=== PATIENT | female | born 1950 | race Caucasian/White ===

== ENCOUNTER 2020-04-14 14:02 | Outpatient (AMBR) | payer OTHER, MEDICAID, SELFPAY ==
--- NOTE | 2020-04-14 14:11 | PT.OIERPT ---
PT OP Initial Eval Patient Information Visit Reasons: BACK PAIN Medical Diagnosis: M54.5 Treatment Dx #1: LBP Start of Care: 04/14/20 Date of Onset: 6 months ago Initial Assessment Subjective Pt is 69 yr old female who c/o worsening LBP with prolonged standing and inability to walk without a walker farther than 1/2 a block. Her back feels like it gives out and she falls sometimes. She fell carrying some towels recently because the back couldn't hold her up. PMH: lumbar laminectomy and fusion 2011 of L4-L5, DM, thyroidism, HTN, breast ca, lupus Imaging: Xrays of L/S in EMR, reviewed Pt goal: less LBP, be more mobile, doesn't want to end up in W/C, strengthen core Objective Trunk ArOM: B SB 18 with pain L>R Extension: to neutral Flexion: 4 from floor with LBP B rotation: 60% R SLR ROM: 90 deg. L SLR: 90 deg with posterior knee neural tension with LBP LE strength: B hamstrings: 4-/5 Quads 4-/5 Hip abd/add 4-/5 TTP: moderate L paraspinals L4-5 lumbar paraspinal atrophy abdominal brace with LE movement 3+/5 Assessment Pt presents with limited trunk extension due to pain and overlying myofascial pain and spasming around L4-5 on L side. She has lumbar extensor atrophy and pain with prolonged standing. Pt has fair pelvic kinematics and difficulty finding neutral spine. These findings are consistent with Xrays that reveal thoracolumbar scoliosis and degenerative changes. PT requires skilled therapy in order to decrease pain and improve LE strength and core activation. Short Term and Penitentiary Goals 1. Ind with HEP 2. Improved abdominal brace with LE movement to at least 4/5 3. Improved LE strength to at least 4/5 quads/HS Treatment Plan 1. Manual therapy 2. Therex 3. Modalities as indicated, moist heat, ice, estim Frequency and Duration 2x a week for 6 weeks Certification Dates: 04/14/20 to 07/14/20 Office Procedures PT Procedures PT Date of Service: 04/14/20 OP PT Eval Mod Complex 30 minutes: Yes
--- NOTE | 2020-04-20 14:18 | PT.ODAYNRPT ---
PT Outpatient Daily Note Date of Service: 04/20/20 OP Daily Note Visit Reasons: BACK PAIN Outpatient Physical Therapy Treatment Date: 04/20/20 Subjective: Same as time of evaluation Objective: See F/S for therex MT: STM L/S paraspinals L1-5 x7' MHP x7' during supine therex Assessment: Good response to manual therapy to reduce myofascial TTP. Pt needs work to improve abdominal activation with LE movements. Plan: Continue per POC Length of Time (minutes) of Treatment: 30 Minutes Office Procedures PT Procedures PT Date of Service: 04/14/20 OP PT Eval Mod Complex 30 minutes: Yes PT Procedures PT Date of Service: 04/20/20 Therapeutic Exercise 30 minutes: Yes
--- NOTE | 2020-04-27 14:24 | PTNOTE_ITS ---
PT Outpatient Daily Note Date of Service: 04/27/20 OP Daily Note Visit Reasons: BACK PAIN Outpatient Physical Therapy Treatment Date: 04/27/20 Subjective: Increased LBp since last visit Objective: See F/S for therex MHP x7' during supine therex Assessment: Moderate TTP with supine therex today. No significant pain with p rhoda positioning which is part of HEP. Pt needs work to improve abdominal activation with LE movements. Plan: Continue per POC Length of Time (minutes) of Treatment: 30 Minutes Office Procedures PT Procedures PT Date of Service: 04/14/20 OP PT Eval Mod Complex 30 minutes: Yes PT Procedures PT Date of Service: 04/27/20 Therapeutic Exercise 30 minutes: Yes PT Procedures PT Date of Service: 04/20/20 Therapeutic Exercise 30 minutes: Yes
--- NOTE | 2020-05-03 17:59 | PT.ODS1RPT ---
PT OP Progress/Discharge Note Date of Service: 05/03/20 Progress Note/DC Note Progress Note/Discharge Note: DC Note Patient Information Visit Reasons: BACK PAIN Service Continue Service or Discharge: Discharge Discharge Date: 05/03/20 Status Subjective: After last visit she couldn't walk for two days due to increased LBP. No relief since starting therapy. Objective: Trunk ArOM: Flexion: 4 from floor with LBP Extension: unable due to pain B rotation: 60% LE strength: B quads and HS: 4-/5 Assessment: Pt has attended the eval and 3 Rx sessions with poor response and progress with therapy goals. Pt has had more pain since starting therapy and has not met her goals. Ssx consistent with lumbar DDD and scoliosis. She does have HEP of supine lumbar stabilization therex. Plan: Pt is discharged to provider for further workup Office Procedures PT Procedures PT Date of Service: 04/14/20 OP PT Eval Mod Complex 30 minutes: Yes PT Procedures PT Date of Service: 04/27/20 Therapeutic Exercise 30 minutes: Yes PT Procedures PT Date of Service: 04/20/20 Therapeutic Exercise 30 minutes: Yes PT Procedures PT Date of Service: 05/03/20 Therapeutic Exercise 30 minutes: Yes
== END 2020-05-10 23:59 | disposition home or self-care (01) ==
PROVIDERS: PCP Nurse Practitioner; Referring Provider Nurse Practitioner; Visit Provider Nurse Practitioner
DX: M54.5 Low back pain (principal); E11.9 Type 2 diabetes mellitus without complications; I10 Essential (primary) hypertension
CPT/HCPCS: 97110; 97162

== ENCOUNTER → 2024-12-01 | Outpatient (CLI) | payer MEDICARE, MEDICAID, SELFPAY ==
--- NOTE | 2024-12-01 13:45 | XR_ITS ---
Examination: Screening digital mammography, bilateral Computer aided detection 3-D breast Tomosynthesis, bilateral Date and time of exam: December 01, 2024 at 1344 hours Compared to mammograms dating to April 06, 2018 Indication: Screening Technique: Nonmagnified MLO, CC views of the breasts to been obtained, reconstructed from 3-D Tomosynthesis images. R2 computer aided detection program utilized for evaluation of suspicious masses and/or abnormal calcifications. 3-D Tomosynthesis images obtained. Findings: Scattered areas of fibroglandular density. Stable scar formation 12:00 position right breast consistent with treated right breast cancer Stable circumscribed nodule outer left breast with breast biopsy markers No interval suspicious mass Impression: BI-RADS category II: Benign Findings. Recommend 1 year follow-up mammogram.
[2024-12-01 14:30] LABS: Basophils # (Auto) 0.1 Thou/mm3 (0.0-0.2); Basophils % (Auto) 0 % (0-2.5); Eosinophils # (Auto) 0.3 Thou/mm3 (0.0-0.5); Eosinophils % (Auto) 3 % (0-10); Hematocrit 37.3 % (36.0-46.0); Hemoglobin 11.7 g/dL (12.0-16.0); Immature Granulocytes % (Auto) 0 % (0-0); Immature Granulocytes Auto 0.05 Thou/mm3 (0.00-0.00); Lymphocytes # (Auto) 2.8 Thou/mm3 (1.0-4.8); Lymphocytes % (Auto) 24 % (10-50); Mean Corpuscular HGB Conc 31.4 g/dl (31.0-37.0); Mean Corpuscular Hemoglobin 25.4 pg (25.0-35.0); Mean Corpuscular Volume 81 fL (80-100); Monocytes # (Auto) 0.7 Thou/mm3 (0.0-0.8); Monocytes % (Auto) 7 % (0-12); Neutrophils # (Auto) 7.4 Thou/mm3 (1.8-7.7); Neutrophils % (Auto) 66 % (37-80); Nucleated Red Blood Cell % 0 /100 WBC (0); Platelet Count 498 Thou/mm3 (140-440); RDW Standard Deviation 64.1 fL (36.4-46.3); Red Blood Count 4.61 Miln/mm3 (4.00-5.20); White Blood Count 11.4 Thou/mm3 (3.6-11.0)
[2024-12-01 14:50] LABS: Collection Type, Urine Clean Catch
[2024-12-01 14:54] LABS: Alanine Aminotransferase 9 U/L (10-49); Albumin, Serum 4.9 gm/dL (3.4-4.8); Albumin/Globulin Ratio 1.8 (1.2-2.2); Alkaline Phosphatase 64 U/L (46-116); Anion Gap 10 (7-16); Aspartate Amino Transferase 12 U/L (0-34); BUN/Creatinine Ratio 12 Ratio (12-20); Bilirubin,Total 0.2 mg/dL (0.3-1.2); Blood Urea Nitrogen 13 mg/dL (9-23); Calcium 9.5 mg/dL (8.3-10.6); Calcium (Corrected) 9.5 mg/dL (8.5-10.1); Cardiac Risk Estimate 2.5 RATIO (3.7-5.6); Chloride 98 mMol/L (98-107); Cholesterol 181 mg/dL (132-200); Creatinine (Component) 1.1 mg/dL (0.6-1.3); Globulin 2.7 gm/dL (2.3-3.5); Glucose 80 mg/dL (74-106); HDL Cholesterol 73 mg/dL (40-60); LDL Cholesterol,Calculated 82 mg/dL (0-130); Osmolality,Calculated 272 (275-295); Potassium 4.2 mMol/L (3.4-5.1); Sodium 137 mMol/L (136-145); Thyroid Stimulating Hormone 2.86 uIU/mL (0.55-4.78); Total Protein 7.6 gm/dL (5.7-8.2); Triglycerides 128 mg/dL (30-150); eGFR 54 See Note
[2024-12-01 14:55] LABS: C-Reactive Protein < 0.5 mg/dL (0.0-0.9)
[2024-12-01 15:07] LABS: Bacteria,Urine Rare; Bilirubin,Urine Negative (Negative); Blood,Urine Negative (Negative); Clarity,Urine Turbid (Clear/Hazy); Color,Urine Lt-Yellow (Lt Yel-Yel); Culture Indicated,Urine Contaminated; Glucose, Urine 4+ (Negative); Hyaline Casts,Urine < 1 /hpf (0-1); Ketones,Urine Negative (Negative); Leukocyte Esterase,Urine Positive (Negative); Nitrite,Urine Negative (Negative); PH,Urine 5.5 (5.0-7.0); Protein,Urine Negative (Neg - Trace); RBC,Urine 8 /hpf (0-3); Specific Gravity,Urine 1.012 (1.001-1.035); Squamous Epithelial Cell,Urine 14 /hpf (0-5); Urobilinogen,Urine Negative mg/dL (0.0-1.0); WBC,Urine 32 /hpf (0-5)
[2024-12-01 15:14] LABS: Syphilis Nonreactive (Nonreactive)
[2024-12-01 15:35] LABS: Hepatitis A Antibody IgM Non Reactive (Non React); Hepatitis B Core Antibody IgM Non Reactive (Non React); Hepatitis B Surface Antigen Non Reactive (Non React); Hepatitis C Antibody Non Reactive (Non React)
[2024-12-01 15:55] LABS: Sed Rate (ESR) 49 mm/hr (0-30)
[2024-12-07 06:22] LABS: Complement Component C3* 172 mg/dL (83-193); Complement Component C4c* 40 mg/dL (15-57); DNA (ds) Antibody* <1 IU/mL; HIV Ag/Ab, 4th Gen NON-REACTIVE
== END | disposition home or self-care (01) ==
LOC: CDIM 13:52 → COPL 13:56
PROVIDERS: PCP Internal Medicine; Referring Provider Internal Medicine Rheumatology; Visit Provider Radiology Diagnostic Radiology
DX: Z12.31 Encounter for screening mammogram for malignant neoplasm of breast (principal); R92.8 Other abnormal and inconclusive findings on diagnostic imaging of breast; R92.323 Mammographic fibroglandular density, bilateral breasts; C50.419 Malignant neoplasm of upper-outer quadrant of unspecified female breast; M32.9 Systemic lupus erythematosus, unspecified; E11.22 Type 2 diabetes mellitus with diabetic chronic kidney disease; N18.32 Chronic kidney disease, stage 3b; D63.1 Anemia in chronic kidney disease; E03.9 Hypothyroidism, unspecified; E11.65 Type 2 diabetes mellitus with hyperglycemia; E78.5 Hyperlipidemia, unspecified; Z11.3 Encounter for screening for infections with a predominantly sexual mode of transmission; Z11.59 Encounter for screening for other viral diseases
CPT/HCPCS: 36415; 77063; 77067; 80053; 80061; 80074; 81001; 84443; 85025; 85652; 86140; 86160; 86225; 86780; 87389

== ENCOUNTER → 2025-01-10 | Outpatient (CLI) | payer MEDICARE, SELFPAY ==
--- NOTE | 2025-01-10 13:35 | XR_ITS ---
Examination: Bone densitometry Date and time of exam:January 10, 2025 1411 hours INDICATIONS: Menopause age 51 postmenopausal lumbar spine fracture, family history, mother osteoporosis, personal history breast carcinoma, personal history osteopenia Technique: Lumbar spine and hip total bone mineralization values of an calculated. Peak reference and age match control results have been displayed. Findings: Lumbar spine total bone mineralization is1.006 gm/cm2. This is 0.4 standard deviations below peak reference. This is 1.9 standard deviations above age-matched controls. Hip total bone mineralization is 0.734 gm/cm2 This is 1.7 standard deviations below peak reference. This is 0.1 standard deviations below age-matched controls Impression: There is normal mineralization based on lumbar spine measurements. There is osteopenia based on hip measurements Lumbar mineralization is decreased 5.6% compared with April 30, 2022 Hip mineralization is increase 0.3% compared with April 30, 2022
== END | disposition home or self-care (01) ==
PROVIDERS: Referring Provider Internal Medicine; Visit Provider Internal Medicine
DX: M85.89 Other specified disorders of bone density and structure, multiple sites (principal)
CPT/HCPCS: 77080

== ENCOUNTER 2025-03-08 21:55 | Emergency (ER) | payer MEDICARE, MEDICAID, SELFPAY ==
[2025-03-08 22:06] VITALS: PULSE 84; O2SAT 100
[2025-03-08 22:43] VITALS: BP 113/73; PULSE 79; RESP 19; TEMP 36.4; O2SAT 94
--- NOTE | 2025-03-09 00:28 | XR_ITS ---
Examination: PA chest single view FINDINGS: Upright PA chest single view Date and time: March 09, 2025, 0040 hours INDICATIONS: Shortness of breath chest heaviness beginning yesterday. FINDINGS: Normal heart size Mild accentuation basilar bronchovascular markings. No lobar pneumonia or pulmonary edema IMPRESSION: Severe bronchitis pattern
--- NOTE | 2025-03-09 00:29 | EKG_ITS ---
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
--- NOTE | 2025-03-09 00:32 | PD.EDRME ---
Rapid Medical Screening Exam RME Arrival date/time: 03/08/25 21:55 Chief Complaint: Shortness of Breath/Dyspnea Time Seen by Provider: 03/09/25 00:17 Vital signs: Vital Signs Temperature 97.5 F 03/08/25 22:43 Pulse Rate 79 03/08/25 22:43 Respiratory Rate 19 03/08/25 22:43 Blood Pressure 113/73 03/08/25 22:43 Pulse Oximetry (%) 94 L 03/08/25 22:43 Oxygen Delivery Method Room Air 03/08/25 22:43 Vital signs reviewed by provider: Yes RME Narrative: 74-year-old female with a past medical history of atrial fibrillation on Eliquis, insulin-dependent diabetes, and SLE presents to the ED with a complaint of shortness of breath and chest heaviness that began earlier today. Patient states she ran out of her metoprolol a couple of days ago and was unable to pick it up from the pharmacy until today. I have greeted and performed a focused initial assessment of this patient. A comprehensive ED assessment and evaluation of the patient, analysis of all test results, and completion of the medical decision making process will be conducted by additional ED providers.
[2025-03-09 01:11] LABS: Collection Type, Urine Clean Catch
[2025-03-09 01:13] LABS: Basophils # (Auto) 0.0 Thou/mm3 (0.0-0.2); Basophils % (Auto) 0 % (0-2.5); Eosinophils # (Auto) 0.3 Thou/mm3 (0.0-0.5); Eosinophils % (Auto) 2 % (0-10); Hematocrit 37.6 % (36.0-46.0); Hemoglobin 11.6 g/dL (12.0-16.0); Immature Granulocytes Auto 0.04 Thou/mm3 (0.00-0.00); Lymphocytes # (Auto) 1.7 Thou/mm3 (1.0-4.8); Lymphocytes % (Auto) 15 % (10-50); Mean Corpuscular HGB Conc 30.9 g/dl (31.0-37.0); Mean Corpuscular Hemoglobin 25.8 pg (25.0-35.0); Mean Corpuscular Volume 84 fL (80-100); Monocytes # (Auto) 0.7 Thou/mm3 (0.0-0.8); Monocytes % (Auto) 5 % (0-12); Neutrophils # (Auto) 9.3 Thou/mm3 (1.8-7.7); Neutrophils % (Auto) 77 % (37-80); Nucleated Red Blood Cell # 0.00 Thou/mm3 (0.00-0.00); Nucleated Red Blood Cell % 0 /100 WBC (0); Platelet Count 477 Thou/mm3 (140-440); RDW Standard Deviation 53.3 fL (36.4-46.3); Red Blood Count 4.50 Miln/mm3 (4.00-5.20); White Blood Count 12.0 Thou/mm3 (3.6-11.0)
[2025-03-09 01:16] LABS: Amorphous Crystals,Urine Present (Absent); Bilirubin,Urine Negative (Negative); Blood,Urine Negative (Negative); Clarity,Urine Clear (Clear/Hazy); Color,Urine Lt-Yellow (Lt Yel-Yel); Culture Indicated,Urine Yes; Glucose, Urine 4+ (Negative); Ketones,Urine 1+ (Negative); Leukocyte Esterase,Urine Positive (Negative); Nitrite,Urine Negative (Negative); PH,Urine 6.0 (5.0-7.0); Protein,Urine Negative (Neg - Trace); RBC,Urine 3 /hpf (0-3); Specific Gravity,Urine 1.030 (1.001-1.035); Squamous Epithelial Cell,Urine 3 /hpf (0-5); Urobilinogen,Urine Negative mg/dL (0.0-1.0); WBC,Urine 16 /hpf (0-5)
[2025-03-09 01:29] LABS: INR 1.0 (0.9-1.3); Partial Thromboplastin Time 30.6 Seconds (22.0-36.0); Prothrombin Time 10.6 Seconds (9.0-12.2)
[2025-03-09 01:31] LABS: B-Type Natriuretic Peptide 35 pg/mL (0-100)
[2025-03-09 01:48] LABS: Alanine Aminotransferase < 7 U/L (10-49); Albumin, Serum 4.6 gm/dL (3.4-4.8); Albumin/Globulin Ratio 1.6 (1.2-2.2); Alkaline Phosphatase 66 U/L (46-116); Anion Gap 11 (7-16); Aspartate Amino Transferase < 10 U/L (0-34); BUN/Creatinine Ratio 12 Ratio (12-20); Bilirubin,Total < 0.2 mg/dL (0.3-1.2); Blood Urea Nitrogen 13 mg/dL (9-23); Calcium 9.6 mg/dL (8.3-10.6); Calcium (Corrected) 9.6 mg/dL (8.5-10.1); Carbon Dioxide 25.9 mMol/L (20.0-31.0); Chloride 101 mMol/L (98-107); Creatinine (Component) 1.1 mg/dL (0.6-1.3); Globulin 2.8 gm/dL (2.3-3.5); Glucose 163 mg/dL (74-106); LDH (Lactate Dehydrogenase) 126 U/L (120-246); Magnesium 1.6 mg/dL (1.6-2.6); Osmolality,Calculated 279 (275-295); Potassium 4.9 mMol/L (3.4-5.1); Sodium 138 mMol/L (136-145); Total Protein 7.4 gm/dL (5.7-8.2); Troponin I < 0.020 ng/mL (0.0-0.045); eGFR 53 See Note
[2025-03-09 03:29] VITALS: BP 111/63; PULSE 73; RESP 18; TEMP 36.4; O2SAT 98; BMI 23.0
--- NOTE | 2025-03-09 03:44 | PD.EDSOB ---
ED SOB =RME/HPI General Chief Complaint: Shortness of Breath/Dyspnea Stated Complaint: SHORTNESS OF BREATH Time Seen by Provider: 03/09/25 00:17 Arrival date/time: 03/08/25 21:55 Limitations: no limitations RME / HPI RME / HPI Narrative: Dr. 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 Patient states she ran out of her metoprolol 2 days ago and didn't orange picker her medication refill until today. Patient reports associated dysuria. She is on oxygen at home. She denies any fever, chills, or any other associated symptoms. Related Data Home Medications ?Medication ?Instructions ?Recorded ?Confirmed gabapentin 300 mg capsule 300 mg PO BID 01/14/23 04/02/23 apixaban 5 mg tablet (Eliquis) 5 mg PO BID 04/02/23 04/02/23 buspirone 15 mg tablet 15 mg PO QDAY 04/02/23 04/02/23 cyclobenzaprine 10 mg tablet 10 mg PO QDAY 04/02/23 04/02/23 fluoxetine 10 mg capsule 10 mg PO QDAY 04/02/23 04/02/23 hydroxychloroquine 200 mg tablet 200 mg PO BID 04/02/23 04/02/23 metformin 1,000 mg tablet 1,000 mg PO BID 04/02/23 04/02/23 oxycodone myristate 13.5 mg 13.5 mg PO BIDWM 04/02/23 04/02/23 capsule sprinkle extend release 12hr(DON'T CRUSH) (Xtampza ER) semaglutide 0.25 mg or 0.5 mg (2 0.25 mg subcut QWEEK 04/02/23 04/02/23 mg/3 mL) subcutaneous pen injector (Ozempic) zolpidem 10 mg tablet 10 mg PO QDAY PRN Insomnia 04/02/23 04/02/23 Previous Rx's ?Medication ?Instructions ?Recorded insulin glargine 100 unit/mL (3 25 unit (0.25 mL) subcut QDAY #15 04/03/23 mL) subcutaneous pen (Lantus mL Solostar U-100 Insulin) levothyroxine 100 mcg tablet 100 mcg PO ACBR #30 tabs 04/03/23 metoprolol succinate 25 mg 50 mg (2 x 25 mg) PO QDAY #60 tabs 04/03/23 tablet,extended release 24 hr nitrofurantoin 100 mg PO Q12H #20 caps 03/09/25 monohydrate/macrocrystals 100 mg capsule (Macrobid) Allergies Allergy/AdvReac Type Severity Reaction Status Date / Time cephalexin Allergy Severe GI UPSET Verified 03/08/25 22:06 latex Allergy Severe Hives Verified 03/08/25 22:06 sulfamethoxazole Allergy Severe Rash Verified 03/08/25 22:06 trimethoprim Allergy Severe Rash Verified 03/08/25 22:06 Review of Systems Review of Systems Systems Reviewed: All systems reviewed, normal except as documented Past Medical History Past Medical History NEUROLOGIC: Negative Neurological Disorders CARDIAC: Positive Cardiac Disorders, Angina, Heart Murmur, Hypercholesterolemia and Hypertension; Negative Congestive Heart Failure RESPIRATORY: Positive Asthma and Bronchitis; Negative Chronic Obstructive Pulmonary Disease (COPD) GASTROINTESTINAL: Positive Gastrointestinal Disorders, Gastroesophageal Reflux Disease and Obesity GENITOURINARY: Negative Genitourinary Disorders or Renal Disease REPRODUCTIVE: Positive Breast Cancer and Previous Pregnancies; Negative Pelvic Inflammatory Disease MUSCULOSKELETAL: Positive Musculoskeletal Disorders, Osteoporosis, Fractures and Degenerative Joint Disease ENDOCRINE: Positive Endocrine Disorders, Diabetes Mellitus Type 2, Hypothyroidism and Systemic Lupus Erythematosus; Negative Diabetes Mellitus Type 1 HEMATOLOGIC: Negative Blood Disorders OTHER HISTORY: Positive Autoimmune Disease, Falls, Anesthesia Reactions, Radiation Therapy, Chicken Pox, Measles, Mumps and Breast Cancer Family History FAMILY HISTORY: Positive Family Cardiac Disorders, Family Gastrointestinal Problems, Family Cancer, Family Surgery and Family Anesthesia Reaction Surgical History SURGICAL: Positive Cardiac Surgery, Cardiac Catheterization, Angiogram, Tonsillectomy, Abdominal Surgery, Lumpectomy and Section; Negative Endocrine Surgery or Ear Surgery Social History SMOKING STATUS: Never smoker ED Exam General Limitations: Present no limitations General appearance: Present alert and in no apparent distress Head Head exam: Present atraumatic Eye Eye exam: Present normal appearance, PERRL and EOMI ENT ENT exam: Present normal exam, normal oropharynx and mucous membranes moist Neck Neck exam: Present normal inspection, full ROM and trachea midline Chest Chest inspection: Present normal inspection and symmetric chest wall rise Respiratory Respiratory exam: Present normal lung sounds bilaterally Cardiovascular Cardiovascular exam: Present regular rate, normal rhythm and normal heart sounds Abdominal Exam Abdominal exam: Present soft and normal bowel sounds Extremities Exam Extremities exam: Present normal inspection and full ROM Back Exam Back exam: Present normal inspection and full ROM Neurological Exam Neurological exam: Present alert, oriented X3 and CN II-XII intact Psychiatric Psychiatric exam: Present normal affect and normal mood Skin Skin exam: Present warm, dry, intact and normal color Course Course Course Narrative: CXR is ordered for determining the etiology of shortness of breath. Quality Measures none Orders Category Date Time Status Bedside COVID-19 Antigen Test NOW Care 03/09/25 00:29 Completed Bedside Influenza A&B Antigen Test NOW Care 03/09/25 00:29 Completed EKG (ED ONLY) *Do not use* NOW Care 03/09/25 00:29 Completed EKG (ED Only) Stat Exams 03/09/25 00:29 Draft XR chest 1V portable Stat Exams 03/09/25 00:28 Taken B-Type Natriuretic Peptide Stat Lab 03/09/25 01:04 Completed CBC Stat Lab 03/09/25 01:04 Completed CMP [Comprehensive Metabolic Panel] Stat Lab 03/09/25 01:04 Completed LDH (Lactate Dehydrogenase) Stat Lab 03/09/25 01:04 Completed Magnesium Stat Lab 03/09/25 01:04 Completed Partial Thromboplastin Time Stat Lab 03/09/25 01:04 Completed Prothrombin Time with INR Stat Lab 03/09/25 01:04 Completed Troponin I Stat Lab 03/09/25 01:04 Completed Urinalysis, C/S if Indicated Stat Lab 03/09/25 01:05 Completed Urine Culture Stat Lab 03/09/25 01:05 Received Nitrofurantoin Macro [Macrobid] Med 03/09/25 03:43 Discontinued 100 mg PO X1 ONE Vital Signs Vital signs: Vital Signs Temperature 97.5 F 03/08/25 22:43 Pulse Rate 79 03/08/25 22:43 Respiratory Rate 19 03/08/25 22:43 Blood Pressure 113/73 03/08/25 22:43 Pulse Oximetry (%) 94 L 03/08/25 22:43 Oxygen Delivery Method Room Air 03/08/25 22:43 Shortness of Breath / Dyspnea MDM Narrative MDM Narrative:: Scribe Attestation: 03/09/25 - Marilyn Reyes am scribing for and in the presence of Dr. Mendez. Patient data External records reviewed:: [facility] previous records (Per chart review, patient was admitted here on 04/01/23 for DKA.) Clinical information provided by:: patient Social determinants that could affect healthcare access:: none Patient has the following chronic illnesses:: DM, HTN, HLD How is presenting disease/condition affected by chronic disease/condition?: uneffected by Evaluation data The following diagnostics were reviewed and interpreted by me:: lab results, radiology exam(s) and EKG tracing(s) Lab and/or radiology exams considered but not ordered:: none Interpretation Summary: COVID/Influenza negative, WBC 12.0, CMP normal, Troponin normal, BNP normal, UA remarkable for positive leukocyte esterase and 16 WBCs. CXR shows no cardiomegaly, no infiltrates, no pleural effusions, flattened diaphragm consistent with COPD, according to my interpretation. EKG done at 0037, NSR, rate of 75, 1st degree AV block, QTc:432, no STEMI, according to my interpretation. Medications / Prescriptions Medications or Prescriptions considered but not ordered:: none Medication administrations:: Medication Administration History Discontinued Medications Nitrofurantoin Macrocrystals (Nitrofurantoin Macro 100 Mg Capsule) 100 mg PO X1 ONE Stop: 03/09/25 03:44 Last Admin: 03/09/25 03:53 Dose: 100 mg Documented By: SF see above Consultations Consultation(s) initiated? (list below): No Diagnosis Shortness of Breath Differential Diagnosis: acute exacerbation of chronic obstructive airways disease, congestive heart failure, community acquired pneumonia and asthma with exacerbation Most likely diagnosis given after review of the tests above:: see clinical impression below Admission Indicated Admission indicated?: not indicated Admission Request Was there a request for admission?: No Disposition Plan Disposition Plan: Discharge Discharge Attestation Discharge Attestation: The patient and all family members were given an opportunity to ask questions and understood the discharge instructions. Discharge instructions specifically effects, indications for sooner follow up or return to the emergency department, and the expected course of current diagnosis. Patient condition: Stable Discharge Plan Plan Patient Disposition: HOME (Self Care) Patient condition on transfer: Stable Prescriptions/Referrals Prescriptions/Med Rec: New nitrofurantoin monohyd/m-cryst [Macrobid] 100 mg capsule 100 mg PO Q12H Qty: 20 0RF Rx Instructions: must administer with a meal/food No Action gabapentin 300 mg capsule 300 mg PO BID cyclobenzaprine 10 mg tablet 10 mg PO QDAY Patient Comments: TAKE 1 TABLET BY MOUTH THREE TIMES DAILY metformin 1,000 mg tablet 1,000 mg PO BID fluoxetine 10 mg capsule 10 mg PO QDAY hydroxychloroquine 200 mg tablet 200 mg PO BID zolpidem 10 mg tablet 10 mg PO QDAY PRN (Reason: Insomnia) Patient Comments: TAKE 1 TABLET BY MOUTH EVERY DAY AT BEDTIME NEEDED buspirone 15 mg tablet 15 mg PO QDAY Eliquis 5 mg tablet 5 mg PO BID Patient Comments: TAKE 1 TABLET BY MOUTH TWICE DAILY Xtampza ER 13.5 mg cap,sprinkl,ER12hr(DONT CRUSH) 13.5 mg PO BIDWM Ozempic 0.25 mg or 0.5 mg (2 mg/3 mL) pen injector 0.25 mg SUBCUT QWEEK Patient Comments: INJECT 0.25 MG INTO THE SKIN ONCE WEEKLY FOR 4 WEEKS THEN INCREASE TO 0.5 MG levothyroxine 100 mcg Tablet 100 mcg PO ACBR Qty: 30 0RF metoprolol succinate 25 mg Tablet Extended Release 24 Hr 50 mg PO QDAY Qty: 60 0RF insulin glargine [Lantus Solostar U-100 Insulin] 100 unit/mL (3 mL) insulin pen 25 unit subcut QDAY Qty: 15 0RF Referrals: aKdy Puga MD [Primary Care Provider] - In 1 week Problem List Clinical Impression: Dysuria Patient/Caregiver Discharge Instructions Education Materials: Dysuria Print Language: [place]erratian Stand Alone Forms: Josee Award Info., Patient Portal Info Letter
[2025-03-09] MEDS: NITROFURANTOIN MACRO 100 MG CAPSULE PO (03:53)
== END 2025-03-09 03:56 | disposition home or self-care (01) ==
PROVIDERS: Physician Assistant; Emergency Provider Emergency Medicine; PCP Internal Medicine
DX: R30.0 Dysuria (principal); R06.02 Shortness of breath; I44.0 Atrioventricular block, first degree; I10 Essential (primary) hypertension; E78.00 Pure hypercholesterolemia, unspecified
CPT/HCPCS: 36415; 71045; 80053; 81001; 83615; 83735; 83880; 84484; 85025; 85610; 85730; 87086; 87400; 87811; 93005; 99283; A9270

== ENCOUNTER 2025-04-29 18:16 | Emergency (ER) | payer MEDICARE, SELFPAY ==
[2025-04-29 18:21] VITALS: BP 139/76; PULSE 78; RESP 18; TEMP 36.3; O2SAT 95
--- NOTE | 2025-04-29 18:21 | XR_ITS ---
Examination: CT brain head without contrast. 2-D sagittal coronal reconstructions Date and time of exam:April 29, 2025 1942 hrs. Indications: Patient fell today with injury to the head, head pain CTDI: vol (mGy):48.4 DLP: (mGycm):1020 Technique: Multiple CT axial sections of the brain have been obtained, 5 mm slice thickness. Contrast has not been administered. 2-D sagittal, coronal reconstructions have been obtained Low dose protocols were performed. One or more of the following dose reduction techniques were used; automated exposure control, adjustment of the mA and/or KV according to patient size, use of iterative reconstruction technique. Findings: No significant ventricular enlargement. Intra-axial or extra-axial hemorrhage density is not seen. No mass effect or midline shift Basal cisterns are not remarkable. Fourth ventricle is midline. Cranial vault intact. Impression: Negative for acute hemorrhage, mass effect or midline shift
[2025-04-29 18:22] VITALS: PULSE 98; O2SAT 98
--- NOTE | 2025-04-29 18:24 | XR_ITS ---
Examination: CT chest, without intravenous contrast. CT abdomen, without intravenous contrast. CT pelvis, without intravenous contrast. 2-D sagittal and coronal reconstructions. 3-D reconstructions. Date and time of exam:April 29, 2025 1945 hrs. Indications: Patient found unconscious down today, neck pain head pain chest pain CTDI vol (mgy) 11 DLP (MGycm)879 Technique: Multiple CT images, 3.0 mm slice thickness, obtained chest, abdomen, pelvis, with the high-resolution 64 slice scanner.. Sagittal and coronal 2-D reconstructions are obtained. 3-D reconstructions Low dose protocols were performed. One or more of the following dose reduction techniques were used; automated exposure control, adjustment of the mA and/or KV according to patient size, use of iterative reconstruction technique. Findings: Thoracic aorta pulmonary arteries intact Moderate calcification left anterior descending coronary artery. No hemopericardium. No pneumothorax, pulmonary contusion or hemothorax The manubrium and the body the sternum intact No thoracic or lumbar vertebral body compression fractures Sacral and coccygeal segments appear intact Bilateral old rib fractures No liver splenic or renal laceration on this noncontrast study No perinephric hematoma. Abdominal aorta is calcified, intact. No free blood in the abdomen. Negative for pneumoperitoneum Distended urinary bladder which is intact Bones of the pelvis hips appear intact No pelvic mass Impression: Thoracic aorta pulmonary arteries intact The pericardium, pneumothorax or pulmonary contusion No abdominal parenchymal laceration. Abdominal aorta intact. No free blood in the abdomen or pelvis.
--- NOTE | 2025-04-29 18:24 | EKG_ITS ---
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
--- NOTE | 2025-04-29 18:24 | XR_ITS ---
Examination: CT cervical spine without contrast 2-D sagittal reconstructions 2-D coronal reconstructions 3-D reconstructions. Exam date and time:April 29, 2025, 1943 hrs. Indications: Patient found down unconscious at home today with neck pain CTDI:vol (mGy) 12.0 DLP: (mGycm) 295 Technique: Multiple 2 mm axial sections of the cervical spine have been obtained. The coronal and sagittal reconstructions have been obtained. 3-D reconstructions have been obtained. Low dose protocols were performed. One or more of the following dose reduction techniques were used; automated exposure control, adjustment of the mA and/or KV according to patient size, use of iterative reconstruction technique. Findings: Axial sections demonstrate intact base of the skull. C1 exhibit satisfactory relationship to the odontoid. No acute cervical vertebral body fracture seen. Alignment posterior spinous processes satisfactory. Impression: No acute cervical fracture. Acute left mastoiditis
--- NOTE | 2025-04-29 18:25 | PD.EDAMS ---
Altered Mental Status RME/HPI General Chief Complaint: Altered Mental Status Stated Complaint: ALTERED MENTAL STATUS Time Seen by Provider: 04/29/25 18:21 Source: patient and EMS Arrival date/time: 04/29/25 18:16 Mode of arrival: EMS RME / HPI RME / HPI narrative: Ms. Ryder is a 75-year-old female with past medical history of type 2 diabetes mellitus insulin-dependent, hypertension, atrial fibrillation, mitral valve prolapse, breast cancer status post right-sided excision & radiation and SLE who presented to [facility] emergency department on 04/29/2025 with a chief complaint of altered mental status. Patient on evaluation in the emergency department is alert and oriented x 3, some history provided by EMS patient does not remember her episode of AMS, patient was found altered and slumped over the bed on the ground by family members, blood sugar was 27 on EMS arrival and patient was given D10 blood sugar improved to 78, patient reports that she is on insulin, currently alert and oriented x 4. Patient denies any pain currently otherwise complains of some myalgias but otherwise denies any nausea vomiting constipation chest pain chest and headache. Related Data Home Medications ?Medication ?Instructions ?Recorded ?Confirmed gabapentin 300 mg capsule 300 mg PO BID 01/14/23 04/02/23 apixaban 5 mg tablet (Eliquis) 5 mg PO BID 04/02/23 04/02/23 buspirone 15 mg tablet 15 mg PO QDAY 04/02/23 04/02/23 cyclobenzaprine 10 mg tablet 10 mg PO QDAY 04/02/23 04/02/23 fluoxetine 10 mg capsule 10 mg PO QDAY 04/02/23 04/02/23 hydroxychloroquine 200 mg tablet 200 mg PO BID 04/02/23 04/02/23 metformin 1,000 mg tablet 1,000 mg PO BID 04/02/23 04/02/23 oxycodone myristate 13.5 mg 13.5 mg PO BIDWM 04/02/23 04/02/23 capsule sprinkle extend release 12hr(DON'T CRUSH) (Xtampza ER) semaglutide 0.25 mg or 0.5 mg (2 0.25 mg subcut QWEEK 04/02/23 04/02/23 mg/3 mL) subcutaneous pen injector (Ozempic) zolpidem 10 mg tablet 10 mg PO QDAY PRN Insomnia 04/02/23 04/02/23 Previous Rx's ?Medication ?Instructions ?Recorded insulin glargine 100 unit/mL (3 25 unit (0.25 mL) subcut QDAY #15 04/03/23 mL) subcutaneous pen (Lantus mL Solostar U-100 Insulin) levothyroxine 100 mcg tablet 100 mcg PO ACBR #30 tabs 04/03/23 metoprolol succinate 25 mg 50 mg (2 x 25 mg) PO QDAY #60 tabs 04/03/23 tablet,extended release 24 hr nitrofurantoin 100 mg PO Q12H #20 caps 03/09/25 monohydrate/macrocrystals 100 mg capsule (Macrobid) oseltamivir 30 mg capsule (Tamiflu) 30 mg PO BID 5 days #10 caps 04/29/25 Allergies Allergy/AdvReac Type Severity Reaction Status Date / Time cephalexin Allergy Severe GI UPSET Verified 03/08/25 22:06 latex Allergy Severe Hives Verified 03/08/25 22:06 sulfamethoxazole Allergy Severe Rash Verified 03/08/25 22:06 trimethoprim Allergy Severe Rash Verified 03/08/25 22:06 Review of Systems Review of Systems Systems Reviewed: All systems reviewed, normal except as documented Past Medical History Past Medical History NEUROLOGIC: Negative Neurological Disorders CARDIAC: Positive Cardiac Disorders, Angina, Heart Murmur, Hypercholesterolemia and Hypertension; Negative Congestive Heart Failure RESPIRATORY: Positive Asthma and Bronchitis; Negative Chronic Obstructive Pulmonary Disease (COPD) GASTROINTESTINAL: Positive Gastrointestinal Disorders, Gastroesophageal Reflux Disease and Obesity GENITOURINARY: Negative Genitourinary Disorders or Renal Disease REPRODUCTIVE: Positive Breast Cancer and Previous Pregnancies; Negative Pelvic Inflammatory Disease MUSCULOSKELETAL: Positive Musculoskeletal Disorders, Osteoporosis, Fractures and Degenerative Joint Disease ENDOCRINE: Positive Endocrine Disorders, Diabetes Mellitus Type 2, Hypothyroidism and Systemic Lupus Erythematosus; Negative Diabetes Mellitus Type 1 HEMATOLOGIC: Negative Blood Disorders OTHER HISTORY: Positive Autoimmune Disease, Falls, Anesthesia Reactions, Radiation Therapy, Chicken Pox, Measles, Mumps and Breast Cancer Family History FAMILY HISTORY: Positive Family Cardiac Disorders, Family Gastrointestinal Problems, Family Cancer, Family Surgery and Family Anesthesia Reaction Surgical History SURGICAL: Positive Cardiac Surgery, Cardiac Catheterization, Angiogram, Tonsillectomy, Abdominal Surgery, Lumpectomy and Section; Negative Endocrine Surgery or Ear Surgery Social History SMOKING STATUS: Never smoker ED Exam Narrative Physical exam: Physical Exam General: Awake and in no acute distress. Conversational and non-toxic appearing. HEENT: Normocephalic, atraumatic, mucous membranes moist. Heart: Regular rate and rhythm, no murmurs. Lungs: Clear to auscultation with no wheezing or crackles. Abdomen: Soft, obese, nondistended, nontender, positive bowel sounds. ?No guarding or rebound tenderness. Neurologic: Alert and oriented x3, no gross neurological deficit, and patient able to move all 4 extremities. Extremities: Trace BLE Edema Skin: No rash or ecchymoses. Course Quality Measures none Orders Category Date Time Status Bedside COVID-19 Antigen Test NOW Care 04/29/25 19:38 Completed Bedside Influenza A&B Antigen Test NOW Care 04/29/25 19:39 Completed Supervisor [employer] Q4H START 00 Care 04/29/25 18:31 Completed Continuous Pulse Oximetry NOW Care 04/29/25 18:31 Completed EKG (ED ONLY) *Do not use* NOW Care 04/29/25 18:24 Completed Fingerstick [Bedside Blood Glucose] NOW Care 04/29/25 18:22 Completed Saline [Insert IV] NOW Care 04/29/25 19:39 Completed Straight [In and Out Catheter] X1 Care 04/29/25 19:[address] cervical spine wo con Stat Exams 04/29/25 18:[address] chest abdomen pelvis wo Stat Exams 04/29/25 18:[address] head/brain wo con Stat Exams 04/29/25 18:21 Completed EKG (ED Only) Stat Exams 04/29/25 18:24 Draft Ammonia Stat Lab 04/29/25 18:53 Completed CBC Stat Lab 04/29/25 18:53 Completed CK [Creatine Kinase] Stat Lab 04/29/25 18:53 Completed CMP [Comprehensive Metabolic Panel] Stat Lab 04/29/25 18:53 Completed Free T4 (Free Thyroxine) Stat Lab 04/29/25 18:53 Completed INR [Prothrombin Time with INR] Stat Lab 04/29/25 18:53 Completed Lactate (Lactic Acid) Stat Lab 04/29/25 18:53 Completed Magnesium Stat Lab 04/29/25 18:53 Completed PTT [Partial Thromboplastin Time] Stat Lab 04/29/25 18:53 Completed Phosphorous Stat Lab 04/29/25 18:53 Completed Procalcitonin Stat Lab 04/29/25 18:53 Completed Thyroid Stimulating Hormone Stat Lab 04/29/25 18:53 Completed Troponin I Stat Lab 04/29/25 18:53 Completed Urinalysis, C/S if Indicated Stat Lab 04/29/25 19:28 Completed VBG [Venous Blood Gas] Stat Lab 04/29/25 18:53 Completed Dextrose 50% Syr [D50w Syringe Abboject] Med 04/29/25 18:53 Discontinued 25 ml IV Q15MIN PRN Dextrose 50% Syr [D50w Syringe Abboject] Med 04/29/25 18:53 Discontinued 50 ml IV Q15MIN PRN Glucagon Inj Med 04/29/25 18:53 Discontinued 1 mg IM Q15MIN PRN Oseltamivir [Tamiflu] Med 04/29/25 20:46 Discontinued 75 mg PO X1 ONE Vital Signs Vital signs: Vital Signs Temperature 97.3 F 04/29/25 18:21 Pulse Rate 78 04/29/25 18:21 Respiratory Rate 18 04/29/25 18:21 Blood Pressure 139/76 H 04/29/25 18:21 Pulse Oximetry (%) 95 04/29/25 18:21 Oxygen Delivery Method Room Air 04/29/25 18:21 Altered Mental Status MDM Narrative MDM Narrative:: #Influenza A positive #Hypoglycemic episode 75-year-old female with past medical history as above presented with chief complaint of hypoglycemic episode, followed by EMS with blood glucose 27 was given D10 enroute to ED and blood glucose improved. Patient found down slumped on the ground, reports that she does not remember the episode. Workup: EKG showed sinus rhythm heart rate QTc 434 CT scan of head negative for any acute hemorrhage mass effect or midline shift CT cervical spine negative for any acute fracture CT chest abdomen pelvis negative for any acute findings Bedside influenza positive, COVID-negative CBC: WBC 12.2, hemoglobin 10.3, RBC 3.98, hematocrit 34.2 Coags: PT 10.1, INR 0.9, APTT 26.4 VBG: pH 7.34, pCO2 53 Chemistry: Sodium 137 potassium 4.0 chloride 98 bicarb 27.5 anion gap 12, BUN 20 creatinine 0.9 GFR greater than 60 glucose 76 osmolality 275 lactate 2.1 calcium 9.8, phosphorus 3.9 magnesium 1.6 bilirubin 0.2 AST ALT alk phos unremarkable ammonia less than 10 CK20 9 troponin negative total protein albumin and globulin unremarkable Pro-Jimbo TSH and free T4 within normal limits Urinalysis glucose 3 positive protein negative ketone negative blood negative nitrite negative leukocyte esterase negative 64 RBCs no bacteria Patient's repeat blood glucose in the ER 80, patient was given juice, patient asymptomatic. Due to patient's underlying comorbidities decision made to treat patient for influenza was given loading dose of Tamiflu 75 p.o. x 1 will be discharged on Tamiflu 30 mg twice daily because of creatinine clearance 59.8 Recommended to decrease Insulin dose and follow up with PCP Case discussed with Attending Physician Dr. Deisy Bell MD Internal Medicine PGY-2 Disclaimer: This note was dictated by speech recognition. Minor errors in generation engineering technologist may be present due to voice recognition software. Patient data External records reviewed:: [facility] previous records and EMS form Clinical information provided by:: patient and EMS Social determinants that could affect healthcare access:: none Patient has the following chronic illnesses:: As Above How is presenting disease/condition affected by chronic disease/condition?: caused by Evaluation data The following diagnostics were reviewed and interpreted by me:: lab results, radiology exam(s) and EKG tracing(s) Lab and/or radiology exams considered but not ordered:: None Interpretation Summary: EKG showed sinus rhythm heart rate QTc 434 CT scan of head negative for any acute hemorrhage mass effect or midline shift CT cervical spine negative for any acute fracture CT chest abdomen pelvis negative for any acute findings Bedside influenza positive, COVID-negative CBC: WBC 12.2, hemoglobin 10.3, RBC 3.98, hematocrit 34.2 Coags: PT 10.1, INR 0.9, APTT 26.4 VBG: pH 7.34, pCO2 53 Chemistry: Sodium 137 potassium 4.0 chloride 98 bicarb 27.5 anion gap 12, BUN 20 creatinine 0.9 GFR greater than 60 glucose 76 osmolality 275 lactate 2.1 calcium 9.8, phosphorus 3.9 magnesium 1.6 bilirubin 0.2 AST ALT alk phos unremarkable ammonia less than 10 CK20 9 troponin negative total protein albumin and globulin unremarkable Pro-Jimbo TSH and free T4 within normal limits Urinalysis glucose 3 positive protein negative ketone negative blood negative nitrite negative leukocyte esterase negative 64 RBCs no bacteria Patient's repeat blood glucose in the ER 80, patient was given juice, patient asymptomatic. Medications / Prescriptions Medications or Prescriptions considered but not ordered:: None Medication administrations:: Medication Administration History Discontinued Medications Dextrose (Dextrose 50%-Water Inj 50 Ml Syringe) 25 ml IV Q15MIN PRN PRN Reason: BG 50-70 responsive npo pt Stop: 05/29/25 18:52 Dextrose (Dextrose 50%-Water Inj 50 Ml Syringe) 50 ml IV Q15MIN PRN PRN Reason: BG <50 OR BG <70 & pt unresponsive Stop: 05/29/25 18:52 Glucagon (Glucagon Inj 1 Mg Vial) 1 mg IM Q15MIN PRN PRN Reason: BG <70, and no IV access Oseltamivir Phosphate (Oseltamivir 75 Mg Capsule) 75 mg PO X1 ONE Stop: 04/29/25 20:47 Last Admin: 04/29/25 21:01 Dose: 75 mg Documented By: DT As Above Consultations Consultation(s) initiated? (list below): No Diagnosis Differential diagnosis altered mental status: hypoglycemia and other (Influenza A +) Most likely diagnosis given after review of the tests above:: Hypoglycemia episode Admission Indicated Admission indicated?: not indicated Admission Request Was there a request for admission?: No Disposition Plan Disposition Plan: Discharge Discharge Attestation Discharge Attestation: The patient and all family members were given an opportunity to ask questions and understood the discharge instructions. Discharge instructions specifically effects, indications for sooner follow up or return to the emergency department, and the expected course of current diagnosis. Patient condition: Stable Discharge Plan Plan Patient Disposition: HOME (Self Care) Patient condition on transfer: Stable Health Concerns: - You were seen in the hospital today for generalized weakness and hypoglycemic episode. You tested positive for influenza, we will discharge you on Tamiflu please take 30 mg of Tamiflu twice a day for 5 days to complete treatment. You were given first dose today in the emergency department. - You are taking 30 units of Lantus, please change your daily dose to 20 units and uptitrate to 25 if you have hyperglycemia. I recommend following up with your primary care physician to adjust your diabetes medication and optimization of control. Avoid hypoglycemic episodes. - Your urine analysis showed that you do not have a urinary tract infection, we did a CT scan of your head which was negative for any acute bleed and your CT chest abdomen and pelvis was unremarkable as well - Otherwise on your workup we found that you are anemic, follow-up with your primary care physician for further workup - Return to emergency department if your symptoms worsen Prescriptions/Referrals Prescriptions/Med Rec: New oseltamivir [Tamiflu] 30 mg capsule 30 mg PO BID 5 Days Qty: 10 0RF No Action gabapentin 300 mg capsule 300 mg PO BID cyclobenzaprine 10 mg tablet 10 mg PO QDAY Patient Comments: TAKE 1 TABLET BY MOUTH THREE TIMES DAILY metformin 1,000 mg tablet 1,000 mg PO BID fluoxetine 10 mg capsule 10 mg PO QDAY hydroxychloroquine 200 mg tablet 200 mg PO BID zolpidem 10 mg tablet 10 mg PO QDAY PRN (Reason: Insomnia) Patient Comments: TAKE 1 TABLET BY MOUTH EVERY DAY AT BEDTIME NEEDED buspirone 15 mg tablet 15 mg PO QDAY Eliquis 5 mg tablet 5 mg PO BID Patient Comments: TAKE 1 TABLET BY MOUTH TWICE DAILY Xtampza ER 13.5 mg cap,sprinkl,ER12hr(DONT CRUSH) 13.5 mg PO BIDWM Ozempic 0.25 mg or 0.5 mg (2 mg/3 mL) pen injector 0.25 mg SUBCUT QWEEK Patient Comments: INJECT 0.25 MG INTO THE SKIN ONCE WEEKLY FOR 4 WEEKS THEN INCREASE TO 0.5 MG levothyroxine 100 mcg Tablet 100 mcg PO ACBR Qty: 30 0RF metoprolol succinate 25 mg Tablet Extended Release 24 Hr 50 mg PO QDAY Qty: 60 0RF insulin glargine [Lantus Solostar U-100 Insulin] 100 unit/mL (3 mL) insulin pen 25 unit subcut QDAY Qty: 15 0RF nitrofurantoin monohyd/m-cryst [Macrobid] 100 mg capsule 100 mg PO Q12H Qty: 20 0RF Rx Instructions: must administer with a meal/food Referrals: Kady Puga MD [Primary Care Provider] - In 1 week Problem List Clinical Impression: Influenza A, Hypoglycemia Patient/Caregiver Discharge Instructions Discharge Activity: activity as tolerated Education Materials: Hypoglycemia (Low Blood Sugar), Blood Sugar Monitoring and ..., ED Influenza (Adult) Print Language: Albanian Stand Alone Forms: Josee Award Info., Patient Portal Info Letter
[2025-04-29 18:26] VITALS: BMI 25.9
[2025-04-29 18:57] VITALS: PULSE 68
[2025-04-29 19:04] LABS: Lactate (Lactic Acid) 2.1 mMol/L (0.4-2.0)
[2025-04-29 19:05] LABS: Base Excess, Venous 2 (-3-3); O2 Saturation, Venous 72 % (96-97); PCO2, Venous 53 mmHg (36-56); PO2, Venous 43 mmHg (15-58); pH, Venous 7.34 (7.33-7.66)
[2025-04-29 19:16] LABS: Basophils # (Auto) 0.0 Thou/mm3 (0.0-0.2); Basophils % (Auto) 0 % (0-2.5); Eosinophils # (Auto) 0.3 Thou/mm3 (0.0-0.5); Eosinophils % (Auto) 3 % (0-10); Hematocrit 34.2 % (36.0-46.0); Hemoglobin 10.3 g/dL (12.0-16.0); Immature Granulocytes Auto 0.04 Thou/mm3 (0.00-0.00); Lymphocytes # (Auto) 1.8 Thou/mm3 (1.0-4.8); Lymphocytes % (Auto) 15 % (10-50); Mean Corpuscular HGB Conc 30.1 g/dl (31.0-37.0); Mean Corpuscular Hemoglobin 25.9 pg (25.0-35.0); Mean Corpuscular Volume 86 fL (80-100); Monocytes # (Auto) 0.6 Thou/mm3 (0.0-0.8); Monocytes % (Auto) 5 % (0-12); Neutrophils # (Auto) 9.4 Thou/mm3 (1.8-7.7); Neutrophils % (Auto) 77 % (37-80); Nucleated Red Blood Cell # 0.00 Thou/mm3 (0.00-0.00); Nucleated Red Blood Cell % 0 /100 WBC (0); Platelet Count 425 Thou/mm3 (140-440); RDW Standard Deviation 59.5 fL (36.4-46.3); Red Blood Count 3.98 Miln/mm3 (4.00-5.20); White Blood Count 12.2 Thou/mm3 (3.6-11.0)
[2025-04-29 19:29] LABS: INR 0.9 (0.9-1.3); Partial Thromboplastin Time 26.4 Seconds (22.0-36.0); Prothrombin Time 10.1 Seconds (9.0-12.2)
[2025-04-29 19:34] LABS: Ammonia < 10 uMol/L (11-32)
[2025-04-29 19:35] LABS: Alanine Aminotransferase < 7 U/L (10-49); Albumin, Serum 4.7 gm/dL (3.4-4.8); Albumin/Globulin Ratio 2.0 (1.2-2.2); Alkaline Phosphatase 51 U/L (46-116); Anion Gap 12 (7-16); Aspartate Amino Transferase 10 U/L (0-34); BUN/Creatinine Ratio 22 Ratio (12-20); Bilirubin,Total < 0.2 mg/dL (0.3-1.2); Blood Urea Nitrogen 20 mg/dL (9-23); Calcium 9.8 mg/dL (8.3-10.6); Calcium (Corrected) 9.8 mg/dL (8.5-10.1); Carbon Dioxide 27.5 mMol/L (20.0-31.0); Chloride 98 mMol/L (98-107); Creatine Kinase 29 U/L (34-171); Creatinine (Component) 0.9 mg/dL (0.6-1.3); Estimated Creatinine Clearance 59.8 mL/min (>60); Free T4 (Free Thyroxine) 1.47 ng/dL (0.89-1.76); Globulin 2.4 gm/dL (2.3-3.5); Glucose 76 mg/dL (74-106); Magnesium 1.6 mg/dL (1.6-2.6); Osmolality,Calculated 275 (275-295); Phosphorous 3.9 mg/dL (2.4-5.1); Potassium 4.0 mMol/L (3.4-5.1); Procalcitonin 0.05 ng/ml (0.0-0.49); Sodium 137 mMol/L (136-145); Thyroid Stimulating Hormone 3.78 uIU/mL (0.55-4.78); Total Protein 7.1 gm/dL (5.7-8.2); Troponin I < 0.020 ng/mL (0.0-0.045); eGFR > 60 See Note
[2025-04-29 19:41] LABS: Collection Type, Urine Clean Catch; Squamous Epithelial Cell,Urine 0 /hpf (0-5)
[2025-04-29 19:42] VITALS: BP 131/64; PULSE 75; RESP 14; TEMP 37; O2SAT 99
[2025-04-29 19:52] LABS: Bilirubin,Urine Negative (Negative); Blood,Urine Negative (Negative); Clarity,Urine Clear (Clear/Hazy); Color,Urine Colorless (Lt Yel-Yel); Culture Indicated,Urine Not Indicated; Glucose, Urine 3+ (Negative); Ketones,Urine Negative (Negative); Leukocyte Esterase,Urine Negative (Negative); Nitrite,Urine Negative (Negative); PH,Urine 6.0 (5.0-7.0); Protein,Urine Negative (Neg - Trace); RBC,Urine 64 /hpf (0-3); Specific Gravity,Urine 1.008 (1.001-1.035); Urobilinogen,Urine Negative mg/dL (0.0-1.0); WBC,Urine 4 /hpf (0-5)
[2025-04-29] MEDS: OSELTAMIVIR 75 MG CAPSULE PO (21:01)
[2025-04-29 21:02] VITALS: BP 135/75; PULSE 85; RESP 14; TEMP 37.6; O2SAT 99
[2025-04-29 22:00] LABS: Reflex Lactate? Y
== END 2025-04-29 21:03 | disposition home or self-care (01) ==
PROVIDERS: Emergency Provider Emergency Medicine; PCP Internal Medicine
DX: E11.649 Type 2 diabetes mellitus with hypoglycemia without coma (principal); J10.1 Influenza due to other identified influenza virus with other respiratory manifestations; M54.2 Cervicalgia; R51.9 Headache, unspecified; R07.9 Chest pain, unspecified; I10 Essential (primary) hypertension; I48.91 Unspecified atrial fibrillation; E78.00 Pure hypercholesterolemia, unspecified; Z79.4 Long term (current) use of insulin; Z79.01 Long term (current) use of anticoagulants; Z79.84 Long term (current) use of oral hypoglycemic drugs; S09.90XA Unspecified injury of head, initial encounter; W19.XXXA Unspecified fall, initial encounter
CPT/HCPCS: 36415; 70450; 71250; 72125; 74176; 80053; 81001; 82140; 82550; 82803; 83605; 83735; 84100; 84145; 84439; 84443; 84484; 85025; 85610; 85730; 87400; 87811; 93005; 99284; A9270

== ENCOUNTER 2025-06-03 07:25 | Inpatient (IN) | payer MEDICARE, MEDICAID, SELFPAY ==
[2025-06-03] VITALS (18 sets, daily range): BP systolic 116–156; BP diastolic 82–99; PULSE 104–160; RESP 14–95; TEMP 36.6–37.2; O2SAT 94–99; BMI 26.6; BMI 27.3
--- NOTE | 2025-06-03 07:42 | EKG_ITS ---
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
--- NOTE | 2025-06-03 07:47 | XR_ITS ---
Examination: CT brain head without contrast. 2-D sagittal coronal reconstructions Date and time of exam: June 03, 2025, 1152 hours INDICATIONS: Altered mental status today CTDI: vol (mGy): 47.7 DLP: (mGycm): 998 Technique: Multiple CT axial sections of the brain have been obtained, 5 mm slice thickness. Contrast has not been administered. 2-D sagittal, coronal reconstructions have been obtained Low dose protocols were performed. One or more of the following dose reduction techniques were used; automated exposure control, adjustment of the mA and/or KV according to patient size, use of iterative reconstruction technique. Findings: No significant ventricular enlargement. Intra-axial or extra-axial hemorrhage density is not seen. No mass effect or midline shift Basal cisterns are not remarkable. Fourth ventricle is midline. Cranial vault intact. Impression: Negative for acute hemorrhage, mass effect or midline shift Advise clinical correlation and follow-up accordingly
--- NOTE | 2025-06-03 07:51 | XR_ITS ---
EXAMINATION: AP chest single view TECHNIQUE: AP portable upright chest single view Date and time: June 03, 2025, 0754 hours, comparison March 09, 2025 INDICATIONS: Coughing neck and back pain beginning 10 days ago. FINDINGS: Normal heart size Mild elevation right hemidiaphragm. Mild accentuation of basilar bronchovascular markings. No lobar pneumonia Prominent osteopenia IMPRESSION: Basilar bronchitis pattern
[2025-06-03] MEDS: DILTIAZEM INJ 5 MG/ML VIAL 5 ML 15 MG IV (08:19)
[2025-06-03 08:41] LABS: Basophils # (Auto) 0.0 Thou/mm3 (0.0-0.2); Basophils % (Auto) 0 % (0-2.5); Eosinophils # (Auto) 0.0 Thou/mm3 (0.0-0.5); Eosinophils % (Auto) 0 % (0-10); Hematocrit 34.1 % (36.0-46.0); Hemoglobin 10.8 g/dL (12.0-16.0); Immature Granulocytes Auto 0.03 Thou/mm3 (0.00-0.00); Lymphocytes # (Auto) 0.8 Thou/mm3 (1.0-4.8); Lymphocytes % (Auto) 6 % (10-50); Mean Corpuscular HGB Conc 31.7 g/dl (31.0-37.0); Mean Corpuscular Hemoglobin 26.6 pg (25.0-35.0); Mean Corpuscular Volume 84 fL (80-100); Monocytes # (Auto) 1.1 Thou/mm3 (0.0-0.8); Monocytes % (Auto) 8 % (0-12); Neutrophils # (Auto) 10.6 Thou/mm3 (1.8-7.7); Neutrophils % (Auto) 85 % (37-80); Nucleated Red Blood Cell # 0.00 Thou/mm3 (0.00-0.00); Nucleated Red Blood Cell % 0 /100 WBC (0); Platelet Count 324 Thou/mm3 (140-440); RDW Standard Deviation 57.9 fL (36.4-46.3); Red Blood Count 4.06 Miln/mm3 (4.00-5.20); White Blood Count 12.5 Thou/mm3 (3.6-11.0)
[2025-06-03] MEDS: DILTIAZEM in NS 100 MG 100 MG/100 ML BAG IV (09:00)
[2025-06-03 09:09] LABS: Acetaminophen < 2.0 mcg/mL (10.0-20.0); Alanine Aminotransferase 14 U/L (10-49); Albumin, Serum 4.9 gm/dL (3.4-4.8); Albumin/Globulin Ratio 2.0 (1.2-2.2); Alcohol, Blood Medical < 3.0 mg/dL (0-10.0); Alkaline Phosphatase 72 U/L (46-116); Anion Gap 19 (7-16); Aspartate Amino Transferase 15 U/L (0-34); BUN/Creatinine Ratio 11 Ratio (12-20); Bilirubin,Total 0.3 mg/dL (0.3-1.2); Blood Urea Nitrogen 11 mg/dL (9-23); Calcium 9.8 mg/dL (8.3-10.6); Calcium (Corrected) 9.8 mg/dL (8.5-10.1); Carbon Dioxide 20.5 mMol/L (20.0-31.0); Chloride 98 mMol/L (98-107); Creatinine (Component) 1.0 mg/dL (0.6-1.3); Estimated Creatinine Clearance 54.4 mL/min (>60); Globulin 2.4 gm/dL (2.3-3.5); Glucose 222 mg/dL (74-106); INR 1.0 (0.9-1.3); Magnesium 2.0 mg/dL (1.6-2.6); Osmolality,Calculated 280 (275-295); Potassium 3.9 mMol/L (3.4-5.1); Prothrombin Time 10.7 Seconds (9.0-12.2); Salicylate < 3.0 mg/dL; Sodium 137 mMol/L (136-145); Total Protein 7.3 gm/dL (5.7-8.2); Troponin I 0.027 ng/mL (0.0-0.045); eGFR 60 See Note
[2025-06-03 09:25] LABS: B-Type Natriuretic Peptide 37 pg/mL (0-100)
[2025-06-03 09:47] LABS: Base Excess -2 (-3-3); HCO3 24 mEq/L (20-26); Inspired O2, VO2 Liters 4 L/min; O2 Saturation 97 % (91-98); PCO2 41 mmHg (32.0-48.0); PO2 90 mmHg (83-108); pH, Arterial 7.37 (7.35-7.45)
[2025-06-03 09:48] LABS: Allen Test Performed/OK; Puncture Site Right Radial
[2025-06-03] MEDS: AMIODARONE 150 MG IVPB 150 MG/100 ML BAG 582.524 MG IV (10:21)
[2025-06-03] MEDS: AMIODARONE 360 MG IVPB 360 MG/200 ML BAG 33.333 MG IV (10:24)
[2025-06-03 10:57] LABS: Amphetamine/Methamp Scrn,U Negative (Negative); Barbiturate Screen,Urine Negative (Negative); Benzodiazepines Screen,Urine Negative (Negative); Benzoylecgonine Screen, Ur Negative (Negative); Fentanyl Screen,Urine Negative (Negative); Opiate Screen,Urine Positive (Negative); THC Screen,Urine Negative (Negative)
[2025-06-03] MEDS: DOXYCYCLINE INJ 100 MG in SODIUM CHLORIDE 0.9% (POP) 100 ML IV (11:32)
[2025-06-03 11:53] LABS: Free T4 (Free Thyroxine) 1.26 ng/dL (0.89-1.76); Thyroid Stimulating Hormone 4.48 uIU/mL (0.55-4.78)
--- NOTE | 2025-06-03 14:09 | ECHO_ITS ---
Transthoracic Echo Report Ht (in): 67 Wt (lb): 170 Exam Location: [id number] Status: Emergency Filter Changer: Keisha Rogers Indications: Procedure Performed: BP: 133 / 82 HR: 123 MEASUREMENTS (Male / Female) Normal Values 2D ECHO LV Diastolic Diameter PLAX 4.0 cm 4.2 - 5.9 / 3.9 - 5.3 cm LV Systolic Diameter PLAX 2.7 cm IVS Diastolic Thickness 1.1 cm 0.6 - 1.0 / 0.6 - 0.9 cm LVPW Diastolic Thickness 1.0 cm 0.6 - 1.0 / 0.6 - 0.9 cm LV Relative Wall Thickness 0.5 LVOT Diameter 1.9 cm LA Volume Index 23.4 cm?/m? 16 - 28 cm?/m? Ascending Aorta Diameter 2.9 cm M-MODE AV Cusp Separation MM 1.3 cm DOPPLER AV Peak Velocity 143.0 cm/s AV Peak Gradient 8.2 mmHg AV Mean Gradient 5.0 mmHg AV Velocity Time Integral 25.4 cm LVOT Peak Velocity 120.0 cm/s LVOT Peak Gradient 5.8 mmHg LVOT Velocity Time Integral 21.7 cm LVOT Cardiac Index 3933.4 cm?/min?m? AV Area Cont Eq vti 2.4 cm? AV Area Cont Eq pk 2.4 cm? MV Area PHT 7.3 cm? Mitral E Point Velocity 83.9 cm/s Mitral A Point Velocity 66.5 cm/s Mitral E to A Ratio 1.3 LV E' Lateral Velocity 6.1 cm/s Mitral E to LV E' Lateral Ratio 13.8 TR Peak Velocity 165.3 cm/s TR Peak Gradient 10.9 mmHg PV Peak Velocity 118.0 cm/s PV Peak Gradient 5.6 mmHg FINDINGS Left Ventricle Mild LVH. Normal left ventricular size and systolic function with no obvious regional wall motion abnormalities. The ejection fraction is visually estimated at 50-55 %. Right Ventricle The right ventricle is normal in size and systolic function. Left Atrium The left atrium is normal by two-dimensional, color flow and Doppler imaging with no structural abnormalities, no thrombus formation present. Right Atrium The right atrium is normal by two-dimensional imaging, color flow and Doppler imaging with no structural abnormalities, no thrombus formation present. Atrial Septum The interatrial septum appears normal with no evidence of a shunt. Aorta The aorta is normal by two-dimensional, color flow and Doppler interrogation. Mitral Valve The mitral valve is normal by two-dimensional, color flow and Doppler interrogation. Mild mitral regurgitation. Aortic Valve Aortic valve sclerosis without stenosis Tricuspid Valve The tricuspid valve is normal by two-dimensional, color flow and Doppler interrogation.There is mild tricuspid valve regurgitation. Pulmonic Valve The pulmonic valve is not well visualized. There is no significant pulmonic valve regurgitation. Vessels The pulmonary artery appears normal. The inferior vena cava pulmonary and hepatic veins appear normal. Pericardium The pericardium is normal by two-dimensional imaging. There is no significant pericardial effusion. CONCLUSIONS Indication: A-fib RVR Mild LVH with.Normal left ventricular size and function. Approximate ejection fraction is 50-55%. Normal right ventricular size and function. Aortic valve sclerosis without stenosis Mild mitral and mild tricuspid regurgitation Oral Bianchi (Electronically Signed) Final Date: 04 June 2025 13:56
--- NOTE | 2025-06-03 14:09 | PD.RESHP ---
Documentation for date of: 06/03/25 Senior resident attestation: Patient evaluated and examined at the bedside, plan of care discussed with rest of the team including my attending physician, except as noted. Patient is a 72-year-old female with a past medical history of diabetes mellitus, SLE, A-fib on Eliquis, HTN, reported history of CHF ? Followed by Dr. 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 Moreira, chronic back pain, chronic cervical pain who presented to the ER due to altered mental status. Patient takes Xtampza for pain, reported she took an extra dose yesterday as the pain in her back and neck was getting worse. Patient's son found her to be confused and brought her to the emergency room. At the time of evaluation patient is alert and oriented x 3. Patient was also found to have tachycardia A-fib with RVR, unresponsive to diltiazem push, started on amiodarone drip. Patient received IV antibiotics for possible bronchitis in the ED. Pending urinalysis, concern for UTI. #A-fib RVR?continue amiodarone drip, continue Eliquis, consulted medical data entry clerk Dr. Bianchi, appreciate recs. Ordered echocardiogram. #Acute encephalopathy?now resolved, likely toxic in the setting of medication overdose, now resolving, A&O x 3, GCS 15 of 15. #History of diabetes mellitus?was on insulin at home, but reportedly not taking due to hypoglycemic episodes, currently on oral hypoglycemics, but patient was not able to recall all her home medications, pending med rec reconciliation. SSI, FSBG checks. #Concern for starvation ketosis?noted eelvated BHB and wide anion gap, possibly due to poor PO intake past few days. Bicarb within normal range, will continue to monitor, less concerned about DKA at this point. Quresh PGY3 HPI History of Present Illness Chief complaint: AMS and weakness History of present illness: Bhavna Ryder 74F pmhx significant for NIDDM2, HTN, atrial fibrillation, mitral valve prolapse, breast CA s/p excision and radiation and SLE who presents with one week of gradual weakness and confusion. Patient reports one week of worsening weakness and confusion, stating that she forgets small things more often this week. Patient reports her son stated that she was more confused today, prompting current ED visit. She reports significant neck pain recently and exacerbation of chronic back pain and took a few more Xtampza doses recently. Patient denies any recent illness, fever/chills, nausea vomiting, urinary symptoms or diarrhea but does report constipation, last BM about one week ago takes Miralax. Endorses recent episodes of hypoglycemia and previously took 30 units of insulin however has been tapered off and currently taking no insulin due to hypoglycemia. Recently visited ED in April found obtunded by son and glucose of 27. At that time insulin decreased to 20 units but recently, patient has not been taking her insulin but continues taking metformin. Does report decreased p.o. intake due to weakness. Uses asthma inhaler about once a month, no recent exacerbation. Reports previous seeing Dr. Bianchi however due to insurance changes has not visited since early 2024; unknown hx of CHF. Endorses orthopnea and back pain when lying flat. Denies PND, dyspnea on exertion, palpitations or chest pain. PMHx: as above Surgical Hx: cholecystectomy, remote laminectomy FHx: Mother heart attack at age 62 Social Hx: Denies tobacco, alcohol, recreational/illicit drug use Allergies: Cephalexin nausea, TMP-SMX rash Medications: Per med rec In ED, BP 131/99, HR 144, RR 18 afebrile satting 94L on 6L, WBC 12.5, Hgb 10.8, ABG 7.37/41/90/24, anion gap 19, glucose 222. In ED, given IV dilt 15x1, amiodarone drip, doxycycline 100 mg x1 and Percocet x1. EKG sinus tachycardia rate 152 however patient noted to be in afib RVR and started on amio drip after dilt push, CTH negative for acute hemorrhage, mass effect or midline shift, CXR basilar bronchitis pattern. Cardiology consulted. Patient was admitted for management of afib RVR and workup of encephalopathy. Review of Systems Review of Systems Systems Reviewed: All systems reviewed, normal except as documented Exam Vital Signs Temp Pulse Resp BP Pulse Ox O2 Del Method O2 Flow Rate 97.8 F 104 H 16 156/93 H 95 Room Air 6 06/03/25 12:25 06/03/25 12:25 06/03/25 12:25 06/03/25 12:25 06/03/25 12:25 06/03/25 12:25 06/03/25 09:37 Narrative Exam GENERAL: AOx3, no acute distress HEENT: mucous membranes moist, bilateral sclera anicteric CARDIOVASCULAR: regular rhythm, tachycardic, S1/S2 present, no murmurs appreciated PULMONARY: clear to auscultation bilaterally, no rales/rhonchi/wheezes ABDOMINAL: soft, non-tender, non-distended, no rebound/guarding, bowel sounds present EXTREMITIES: trace peripheral edema SKIN: warm and dry, intact, no rashes NEURO: CN II-XII grossly intact, no focal deficits, alert, following commands Results: Labs 06/04/25 05:12 06/04/25 05:12 Labs: Short CBC 06/03/25 Range/Units 07:45 WBC 12.5 H (3.6-11.0) Thou/mm3 Hgb 10.8 L (12.0-16.0) g/dL Hct 34.1 L (36.0-46.0) % Plt Count 324 D (140-440) Thou/mm3 BMP 06/03/25 07:45 Sodium 137 Potassium 3.9 Chloride 98 Carbon Dioxide 20.5 BUN 11 Creatinine 1.0 Glucose 222 H Calcium 9.8 Cardiac Enzymes 06/03/25 Range/Units 07:45 Troponin I 0.027 (0.0-0.045) ng/mL Liver Function 06/03/25 Range/Units 07:45 Total Bilirubin 0.3 (0.3-1.2) mg/dL AST 15 (0-34) U/L ALT 14 (10-49) U/L Alkaline Phosphatase 72 (46-116) U/L Albumin 4.9 H (3.4-4.8) gm/dL ABG Interpretation ABG results: 06/03/25 09:38 ABG pH 7.37 ABG pCO2 41 ABG pO2 90 ABG HCO3 24 ABG O2 Saturation 97 ABG Base Excess -2 Quality Measures Quality Measures VTE prophylaxis Advance care planning discussed with:: patient Medications Home Medications and Allergies Home Medications ?Medication ?Instructions ?Recorded ?Confirmed ?Type gabapentin 300 mg capsule 300 mg PO BID 01/14/23 06/04/25 History apixaban 5 mg tablet (Eliquis) 5 mg PO BID 04/02/23 06/04/25 History buspirone 15 mg tablet 15 mg PO QDAY 04/02/23 06/04/25 History cyclobenzaprine 10 mg tablet 10 mg PO TID 04/02/23 06/04/25 History hydroxychloroquine 200 mg tablet 200 mg PO BID 04/02/23 06/04/25 History metformin 1,000 mg tablet 1,000 mg PO BID 04/02/23 06/04/25 History oxycodone myristate 13.5 mg 13.5 mg PO BIDWM 04/02/23 06/04/25 History capsule sprinkle extend release 12hr(DON'T CRUSH) (Xtampza ER) zolpidem 10 mg tablet 10 mg PO QDAY PRN Insomnia 04/02/23 06/04/25 History insulin glargine 100 unit/mL (3 10 unit subcut QDAY 06/04/25 06/04/25 History mL) subcutaneous pen (Lantus Solostar U-100 Insulin) Allergies Allergy/AdvReac Type Severity Reaction Status Date / Time cephalexin Allergy Severe GI UPSET Verified 03/08/25 22:06 latex Allergy Severe Hives Verified 03/08/25 22:06 sulfamethoxazole Allergy Severe Rash Verified 03/08/25 22:06 trimethoprim Allergy Severe Rash Verified 03/08/25 22:06 Visit Medications Acetaminophen (Acetaminophen 325 Mg Tablet) 650 mg PO Q6H PRN PRN Reason: Fever >101.5 Stop: 07/03/25 13:53 Acetaminophen (Acetaminophen Supp 650 Mg Supp) 650 mg MS Q6HR PRN PRN Reason: Fever > 100.4 or pain 1-3 Stop: 07/03/25 13:53 Amiodarone HCl/Dextrose (Nexterone Ivpb) 360 mg in 200 mls @ 33.333 mls/hr IV .Q6H ONE Stop: 06/03/25 15:40 Last Admin: 06/03/25 10:24 Dose: 33.333 mls/hr Sennosides (Senna Tablet) 1 tab PO QDAY PRN; Protocol PRN Reason: constipation Stop: 07/03/25 13:53 Discontinued Medications Diltiazem HCl (Diltiazem Inj 5 Mg/Ml Vial 5 Ml) 15 mg IV X1 ONE Stop: 06/03/25 07:53 Last Admin: 06/03/25 08:19 Dose: 15 mg Diltiazem/Sodium Chloride (Diltiazem In Ns 100 Mg) 100 mg in 100 mls @ 5 mls/hr IV .Q20H THANH; Protocol Stop: 07/03/25 07:52 Last Titration: 06/03/25 10:15 Dose: 0 mg/hr, 0 mls/hr Amiodarone HCl/Dextrose (Nexterone Ivpb) 150 mg in 100 mls @ 582.524 mls/hr IV X1 ONE Stop: 06/03/25 09:51 Last Infusion: 06/03/25 10:32 Dose: Infused Doxycycline Hyclate 100 mg/ (Sodium Chloride) 100 mls @ 100 mls/hr IV X1 ONE Stop: 06/03/25 12:15 Last Infusion: 06/03/25 13:12 Dose: Infused Oxycodone/Acetaminophen (Oxycodone/Apap 5/325 Tablet) 1 tab PO X1 ONE Stop: 06/03/25 13:26 Last Admin: 06/03/25 13:53 Dose: 1 tab Assessment & Plan Plan Bhavna Ryder 74F pmhx significant for NIDDM2, HTN, atrial fibrillation, mitral valve prolapse, breast CA s/p excision and radiation and SLE who presents with one week of gradual weakness and confusion, admitted for management of afib RVR and encephalopathy workup. #Acute Encephalopathy Presents with one week of worsening confusion and generalized weakness. Endorses poor PO intake and recent episodes of hypoglycemia. Last BM 1 week ago. AOx3 in ED. WBC 12.5 and anion gap 19. Electrolytes wnl. Ddx: metabolic (HAGMA, elevated lactic vs beta hydroxy as patient has hx of DKA) vs infectios (UTI) vs polypharmacy (taking extra Xtampza due to exacerbation of back pain and neck pain, zolpidem) vs hypoglycemia Plan: - F/u lactate, BHB, and UA - Avoid sedating agents #Atrial fibrillation RVR #Hx atrial fibrillation on Eliquis #?CHF Presented with atrial fibrillation RVR with hx of afib already on Eliquis and metoprolol XL 50 QD, unknown chronicity or paroxysmal vs chronic. EKG shows SVT rate 152 QTc 474. Questionable hx of CHF but patient reports taking lasix for CHF. Previously saw Dr. Bianchi. s/p IV dilt x1 in ED without conversion. Likely 2/2 underlying cause of encephalopathy. Plan: - Amiodarone drip - Continue home metoprolol XL 50 mg QD - Telemetry for monitoring - Keep K>4 and Mg>2 at all times - Cardiology consulted, recs appreciated #IDDM2 Previously on Lantus 30u, however over the past few months, has had hypoglycemic episodes and has not been taking insulin. Still taking metformin Plan: - F/u a1c and lipid panel - SSI #Chronic back pain #Neck pain New muscular neck pain for the past week and exacerbation of chronic back pain. Xtampza ER 13.5 BID for years and cyclobenzaprine 10 mg QD. Denies light sensitivity or neck rigidity. Does have muscular pain when turning head and TTP to cervical paraspinal muscles. Plan: - Instructed to bring home Xtampza ER 13.5 mg BID - Home cyclobenzaprine 10 mg BID #SLE #Depression #Hypothyroidism #Asthma Does not appear to be in SLE flare, denies myalgias, joint pain, excessive fatigue. Chronic medical conditions nonpertinent to the following presentation Plan: - Continue home hydroxychloroquine 200 mg BID, levothyroxine 100 mcg acbr - Duoneb q2h prn Hospital management: Lines: PIV Diet: carb consistent low Bowel: Senna GI prophylaxis: not indicated DVT prophylaxis: Eliquis 5 mg BID Disposition: mary hopper, AMS workup CODE STATUS: FULL CODE Plan of care discussed with attending Dr. Driver, and PGY-3 Dr. Richardson. Fara Ruvalcaba DO PGY-1 Internal Medicine Attending Provider Attestation/Addendum Eric, Gianna Driver DO, attest that I was physically present for the kelly portions of the service and evaluated the patient with the resident and I reviewed and discussed the case with the resident and agree with the resident's findings and plans of care as documented above Patient is a 74-year-old female with past medical history of of type II IDDM, hypertension, A-fib, mitral valve prolapse, breast cancer status post resection and radiation, SLE who was brought to the ED with worsening confusion and generalized weakness. Patient complains of chronic neck and lower back pain with which she takes Xtampza. She states that she took an extra dose yesterday due to the pain. Patient was noted to have taken a CT of the cervical spine about 3 weeks ago due to worsening pain. She denies any recent trauma. However, she states the pain is unchanged from 4 weeks ago when scan was taken. Scan was unremarkable but noted to have acute left mastoiditis. Chest abdomen and pelvis CT were also unremarkable. In the ED, patient was noted to have A-fib with RVR with a heart rate in the 150s. Patient is on chronic anticoagulation, but has not seen her medical data entry clerk in several months due to change of insurance. She was placed on an amiodarone drip due to A-fib with RVR. She currently denies any chest pain or shortness of breath. Arik was noted to have purulent appearing urine with a lot of sediment. She is noted to have an anion, but with no acidosis. Beta hydroxybutyrate was noted to be 3.8. Suspect patient to have have component of starvation ketoacidosis given generalized weakness and poor p.o. intake for the past week. She also states that she has been having trouble titrating her insulin as she has been been having hypoglycemic events at home. Will hold off on long-acting insulin and monitor blood glucose closely with insulin sliding scale. Will obtain UA and urine cultures. Will also follow-up blood cultures. She denies any fevers or chills otherwise. Will admit patient to telemetry for further workup and medical management of A-fib with RVR. Will give IV fluid hydration as patient appears to be dehydrated. Will have her work with physical therapy and consult dietitian as well.
--- NOTE | 2025-06-03 14:52 | PD.EDAMS ---
Altered Mental Status RME/HPI General Chief Complaint: Altered Mental Status Stated Complaint: ALTERED Time Seen by Provider: 06/03/25 07:44 Arrival date/time: 06/03/25 07:25 Limitations: no limitations RME / HPI RME / HPI narrative: 74 year old female with history of atrial fibrillation, mitral valve prolapse, hypertension, diabetes, breast cancer s/p right breast partial mastectomy and radiation therapy presents to the ED BIBA from home for evaluation of altered mental status today. Per medics, on scene patient was hypoxic and placed on 6L oxygen with improvement to mid 90s. On arrival to ED, the patient was in rapid atrial fibrillation, GCS of 14, and able to answer questions though did not know the year. Patient only complains of feeling short of breath and a rapid heart rate. Denies any fevers, chills, nausea, vomiting, abdominal pain, or urinary symptoms. Patient mentioned she does have a scheduled consultation with teaching assistant. Related Data Home Medications ?Medication ?Instructions ?Recorded ?Confirmed gabapentin 300 mg capsule 300 mg PO BID 01/14/23 04/02/23 apixaban 5 mg tablet (Eliquis) 5 mg PO BID 04/02/23 04/02/23 buspirone 15 mg tablet 15 mg PO QDAY 04/02/23 04/02/23 cyclobenzaprine 10 mg tablet 10 mg PO QDAY 04/02/23 04/02/23 fluoxetine 10 mg capsule 10 mg PO QDAY 04/02/23 04/02/23 hydroxychloroquine 200 mg tablet 200 mg PO BID 04/02/23 04/02/23 metformin 1,000 mg tablet 1,000 mg PO BID 04/02/23 04/02/23 oxycodone myristate 13.5 mg 13.5 mg PO BIDWM 04/02/23 04/02/23 capsule sprinkle extend release 12hr(DON'T CRUSH) (Xtampza ER) semaglutide 0.25 mg or 0.5 mg (2 0.25 mg subcut QWEEK 04/02/23 04/02/23 mg/3 mL) subcutaneous pen injector (Ozempic) zolpidem 10 mg tablet 10 mg PO QDAY PRN Insomnia 04/02/23 04/02/23 Previous Rx's ?Medication ?Instructions ?Recorded insulin glargine 100 unit/mL (3 25 unit (0.25 mL) subcut QDAY #15 04/03/23 mL) subcutaneous pen (Lantus mL Solostar U-100 Insulin) levothyroxine 100 mcg tablet 100 mcg PO ACBR #30 tabs 04/03/23 metoprolol succinate 25 mg 50 mg (2 x 25 mg) PO QDAY #60 tabs 04/03/23 tablet,extended release 24 hr nitrofurantoin 100 mg PO Q12H #20 caps 03/09/25 monohydrate/macrocrystals 100 mg capsule (Macrobid) Allergies Allergy/AdvReac Type Severity Reaction Status Date / Time cephalexin Allergy Severe GI UPSET Verified 03/08/25 22:06 latex Allergy Severe Hives Verified 03/08/25 22:06 sulfamethoxazole Allergy Severe Rash Verified 03/08/25 22:06 trimethoprim Allergy Severe Rash Verified 03/08/25 22:06 Review of Systems Review of Systems Systems Reviewed: All systems reviewed, normal except as documented Past Medical History Past Medical History CARDIAC: Positive Cardiac Disorders, Angina, Heart Murmur, Hypercholesterolemia and Hypertension RESPIRATORY: Positive Asthma and Bronchitis GASTROINTESTINAL: Positive Gastrointestinal Disorders, Gastroesophageal Reflux Disease and Obesity REPRODUCTIVE: Positive Breast Cancer and Previous Pregnancies MUSCULOSKELETAL: Positive Musculoskeletal Disorders, Osteoporosis, Fractures and Degenerative Joint Disease ENDOCRINE: Positive Endocrine Disorders, Diabetes Mellitus Type 2, Hypothyroidism and Systemic Lupus Erythematosus OTHER HISTORY: Positive Autoimmune Disease, Falls, Anesthesia Reactions, Radiation Therapy, Chicken Pox, Measles, Mumps and Breast Cancer Family History FAMILY HISTORY: Positive Family Cardiac Disorders, Family Gastrointestinal Problems, Family Cancer, Family Surgery and Family Anesthesia Reaction Surgical History SURGICAL: Positive Cardiac Surgery, Cardiac Catheterization, Angiogram, Tonsillectomy, Abdominal Surgery, Lumpectomy and Section Social History SMOKING STATUS: Never smoker ED Exam General Limitations: Present no limitations General appearance: Present alert and in no apparent distress Head Head exam: Present atraumatic, normocephalic and normal inspection Eye Eye exam: Present normal appearance, PERRL and EOMI ENT ENT exam: Present normal exam, normal oropharynx and mucous membranes moist Neck Neck exam: Present normal inspection, full ROM and trachea midline Chest Chest inspection: Present normal inspection and symmetric chest wall rise Respiratory Respiratory exam: Present normal lung sounds bilaterally Cardiovascular Cardiovascular exam: Present tachycardia, irregular rhythm and normal heart sounds Abdominal Exam Abdominal exam: Present soft and normal bowel sounds Extremities Exam Extremities exam: Present normal inspection and full ROM Back Exam Back exam: Present normal inspection and full ROM Neurological Exam Neurological exam: Present alert, CN II-XII intact and other (oriented x2, GCS of 14) Psychiatric Psychiatric exam: Present normal affect and normal mood Skin Skin exam: Present warm, dry, intact and normal color Course Quality Measures none Orders Category Date Time Status Admit to Inpatient Status Routine Admission 06/03/25 13:53 Active Patient Condition Routine Admission 06/03/25 13:52 Ordered Bedside Blood Glucose NOW Care 06/03/25 07:47 Active Environmental Sciences Professor NOW Care 06/03/25 07:47 Active Continuous Pulse Oximetry NOW Care 06/03/25 07:47 Completed EKG (ED ONLY) *Do not use* NOW Care 06/03/25 07:42 Completed Insert IV NOW Care 06/03/25 07:47 Completed NPO NOW Care 06/03/25 07:47 Active Notify provider NEEDED Care 06/03/25 13:52 Active Obtain weight NOW Care 06/03/25 13:[address] head/brain wo con Stat Exams 06/03/25 07:47 Completed CXRP [XR chest 1V portable] Stat Exams 06/03/25 07:51 Completed EKG (ED Only) Stat Exams 06/03/25 07:42 Draft Acetaminophen Stat Lab 06/03/25 07:45 Completed Alcohol, Blood Medical Stat Lab 06/03/25 07:45 Completed Arterial Blood Gas Stat Lab 06/03/25 09:38 Completed BNP [B-Type Natriuretic Peptide] Stat Lab 06/03/25 07:45 Completed Blood Culture (Lab) Stat Lab 06/03/25 08:10 Received CBC Stat Lab 06/03/25 07:45 Completed Comprehensive Metabolic Panel Stat Lab 06/03/25 07:45 Completed Drug Screen,Urine Stat Lab 06/03/25 10:40 Completed Free T4 (Free Thyroxine) Stat Lab 06/03/25 07:43 Completed Magnesium Stat Lab 06/03/25 07:45 Completed Prothrombin Time with INR Stat Lab 06/03/25 07:45 Completed Salicylate Stat Lab 06/03/25 07:45 Completed TSH [Thyroid Stimulating Hormone] Stat Lab 06/03/25 07:43 Completed Troponin I Stat Lab 06/03/25 07:45 Completed Amiodarone 150 mg Ivpb [Nexterone Ivpb] Med 06/03/25 09:41 Discontinued 150 mg in 100 ml IV X1 Amiodarone 360 mg Ivpb [Nexterone Ivpb] Med 06/03/25 09:41 Discontinued 360 mg in 200 ml IV 33.333 mls/hr DILTIAZEM in NS 100 MG Med 06/03/25 07:53 Discontinued 100 mg in 100 ml IV 5 mg/hr Diltiazem Inj [Cardizem Inj] Med 06/03/25 07:52 Discontinued 15 mg IV X1 ONE Doxycycline Inj [Vibramycin Inj] 100 mg Med 06/03/25 11:16 Discontinued Sodium Chloride 0.9% (Pop) [NS 0.9% mini bag] 100 ml IV X1 oxyCODONE/APAP 5/325 [Percocet 5/325] Med 06/03/25 13:25 Discontinued 1 tab PO X1 ONE Code Status Routine Oth 06/03/25 13:52 Ordered Oxygen Delivery NOW RT 06/03/25 07:47 Active Vital Signs Vital signs: Vital Signs Temperature 98.9 F 06/03/25 07:33 Pulse Rate 144 H 06/03/25 07:33 Respiratory Rate 18 06/03/25 07:33 Blood Pressure 131/99 H 06/03/25 07:33 Pulse Oximetry (%) 94 L 06/03/25 07:33 Oxygen Delivery Method Nasal Cannula 06/03/25 07:33 Oxygen Flow Rate 6 06/03/25 07:33 Altered Mental Status Patient data External records reviewed:: [facility] previous records and EMS form Clinical information provided by:: patient and EMS Social determinants that could affect healthcare access:: none Patient has the following chronic illnesses:: atrial fibrillation, mitral valve prolapse, hypertension, diabetes, breast cancer s/p right breast partial mastectomy and radiation therapy How is presenting disease/condition affected by chronic disease/condition?: exacerbated by Evaluation data The following diagnostics were reviewed and interpreted by me:: lab results, radiology exam(s) and EKG tracing(s) Lab and/or radiology exams considered but not ordered:: None Interpretation Summary: Ordering Physician: Panchito Chung MD Date of Service: 06/03/25 Procedure(s): CT head/brain wo con Accession Number(s): [id number] cc: Panchito Chung MD; Kady Puga MD; Jewel Floyd MD~ Examination: CT brain head without contrast. 2-D sagittal coronal reconstructions Date and time of exam: June 03, 2025, 1152 hours INDICATIONS: Altered mental status today CTDI: vol (mGy): 47.7 DLP: (mGycm): 998 Technique: Multiple CT axial sections of the brain have been obtained, 5 mm slice thickness. Contrast has not been administered. 2-D sagittal, coronal reconstructions have been obtained Low dose protocols were performed. One or more of the following dose reduction techniques were used; automated exposure control, adjustment of the mA and/or KV according to patient size, use of iterative reconstruction technique. Findings: No significant ventricular enlargement. Intra-axial or extra-axial hemorrhage density is not seen. No mass effect or midline shift Basal cisterns are not remarkable. Fourth ventricle is midline. Cranial vault intact. Impression: Negative for acute hemorrhage, mass effect or midline shift Advise clinical correlation and follow-up accordingly Dictated By: Jewel Floyd MD Signed By: <Electronically signed by Jewel Floyd MD in OV> 06/03/25 1205 Ordering Physician: Panchito Chung MD Date of Service: 06/03/25 Procedure(s): XR chest 1V portable Accession Number(s): [id number] cc: Panchito Chung MD; Kady Puga MD; Jewel Floyd MD~ EXAMINATION: AP chest single view TECHNIQUE: AP portable upright chest single view Date and time: June 03, 2025, 0754 hours, comparison March 09, 2025 INDICATIONS: Coughing neck and back pain beginning 10 days ago. FINDINGS: Normal heart size Mild elevation right hemidiaphragm. Mild accentuation of basilar bronchovascular markings. No lobar pneumonia Prominent osteopenia IMPRESSION: Basilar bronchitis pattern Dictated By: Jewel Floyd MD Signed By: <Electronically signed by Jewel Floyd MD in OV> 06/03/25 0930 Medications / Prescriptions Medications or Prescriptions considered but not ordered:: None Medication administrations:: Medication Administration History Acetaminophen (Acetaminophen 325 Mg Tablet) 650 mg PO Q6H PRN PRN Reason: Fever >101.5 Stop: 07/03/25 13:53 Acetaminophen (Acetaminophen Supp 650 Mg Supp) 650 mg DC Q6HR PRN PRN Reason: Fever > 100.4 or pain 1-3 Stop: 07/03/25 13:53 Albuterol/Ipratropium (Albuterol/Ipratropium (Duoneb) Rt Deisy 3 Ml Nebu) 3 ml INH Q2HR PRN PRN Reason: SHORTNESS OF BREATH OR WHEEZE Stop: 07/03/25 14:54 Apixaban (Apixaban 2.5 Mg Tablet) 5 mg PO BID [facility] Stop: 07/03/25 20:59 Buspirone HCl (Buspirone Hcl 5 Mg Tablet) 15 mg PO QDAY THANH Stop: 07/04/25 08:59 Cyclobenzaprine HCl (Cyclobenzaprine 5 Mg Tablet) 10 mg PO QDAY THANH Stop: 07/03/25 14:59 Last Admin: 06/03/25 15:27 Dose: 10 mg Documented By: EF Dextrose (Dextrose 50%-Water Inj 50 Ml Syringe) 25 ml IV Q15MIN PRN PRN Reason: BG 50-70 responsive npo pt Stop: 07/03/25 14:52 Dextrose (Dextrose 50%-Water Inj 50 Ml Syringe) 50 ml IV Q15MIN PRN PRN Reason: BG <50 OR BG <70 & pt unresponsive Stop: 07/03/25 14:52 Fluoxetine HCl (Fluoxetine Hcl 10 Mg Capsule) 10 mg PO QDAY THANH Stop: 07/04/25 08:59 Glucagon (Glucagon Inj 1 Mg Vial) 1 mg IM Q15MIN PRN PRN Reason: BG <70, and no IV access Hydroxychloroquine Sulfate (Hydroxychloroquine 200 Mg Tablet) 200 mg PO BID [facility] Stop: 06/10/25 20:59 Sodium Chloride (Ns) 1,000 mls @ 75 mls/hr IV .[id number] ONE Stop: 06/04/25 04:33 Last Admin: 06/03/25 15:26 Dose: 75 mls/hr Documented By: EF Insulin Human Lispro (Insulin Lispro (Admelog) 1 Unit/0.01 Ml Unit) 0 unit SC AC THANH; Protocol Stop: 07/03/25 16:59 Levothyroxine Sodium (Levothyroxine Sodium 100 Mcg Tablet) 100 mcg PO ACBR THANH Stop: 07/04/25 05:59 Melatonin (Melatonin 3 Mg Tablet) 3 mg PO HS PRN PRN Reason: insomnia Stop: 07/03/25 20:59 Metoprolol Succinate (Metoprolol Succinate Xl 25 Mg Tabcr) 50 mg PO QDAY THANH Stop: 07/04/25 08:59 Non-Formulary Medication (Oxycodone Myristate [Xtampza Er]) 13.5 mg PO BIDWM THANH Stop: 07/03/25 17:29 Sennosides (Senna Tablet) 1 tab PO QDAY PRN; Protocol PRN Reason: constipation Stop: 07/03/25 13:53 Discontinued Medications Diltiazem HCl (Diltiazem Inj 5 Mg/Ml Vial 5 Ml) 15 mg IV X1 ONE Stop: 06/03/25 07:53 Last Admin: 06/03/25 08:19 Dose: 15 mg Documented By: EF Diltiazem/Sodium Chloride (Diltiazem In Ns 100 Mg) 100 mg in 100 mls @ 5 mls/hr IV .Q20H THANH; Protocol Stop: 07/03/25 07:52 Last Titration: 06/03/25 10:15 Dose: 0 mg/hr, 0 mls/hr Documented By: Titration: 06/03/25 10:00 Dose: 5 mg/hr, 5 mls/hr Documented By: Titration: 06/03/25 09:45 Dose: 10 mg/hr, 10 mls/hr Documented By: Titration: 06/03/25 09:30 Dose: 15 mg/hr, 15 mls/hr Documented By: Titration: 06/03/25 09:15 Dose: 10 mg/hr, 10 mls/hr Documented By: Admin: 06/03/25 09:00 Dose: 5 mg/hr, 5 mls/hr Documented By: EF Amiodarone HCl/Dextrose (Nexterone Ivpb) 360 mg in 200 mls @ 33.333 mls/hr IV .Q6H ONE Stop: 06/03/25 15:40 Last Admin: 06/03/25 10:24 Dose: 33.333 mls/hr Documented By: EF Amiodarone HCl/Dextrose (Nexterone Ivpb) 150 mg in 100 mls @ 582.524 mls/hr IV X1 ONE Stop: 06/03/25 09:51 Last Infusion: 06/03/25 10:32 Dose: Infused Documented By: Admin: 06/03/25 10:21 Dose: 582.524 mls/hr Documented By: EF Doxycycline Hyclate 100 mg/ (Sodium Chloride) 100 mls @ 100 mls/hr IV X1 ONE Stop: 06/03/25 12:15 Last Infusion: 06/03/25 13:12 Dose: Infused Documented By: Admin: 06/03/25 11:32 Dose: 100 mls/hr Documented By: EF Oxycodone/Acetaminophen (Oxycodone/Apap 5/325 Tablet) 1 tab PO X1 ONE Stop: 06/03/25 13:26 Last Admin: 06/03/25 13:53 Dose: 1 tab Documented By: EF See above Consultations Consultation(s) initiated? (list below): Yes Consultation #1 (Physician, Specialty, Details): I spoke with hospitalist team C for admission. Time: 11:24 Diagnosis Differential diagnosis altered mental status: altered mental status, hypoglycemia, hyponatremia, subarachnoid hemorrhage and sepsis Most likely diagnosis given after review of the tests above:: Acute hypoxia Afib with RVR Bronchitis COPD Admission Indicated Admission indicated?: indicated Admission Request Was there a request for admission?: Yes Admission Attestation Admission request attestation: Discussed case with [] from Hospitalist service regarding admission. Discussed patients ED course, exam findings, labs, and radiology results. The Hospitalist [agrees,declines] to accept the patient for admission. Disposition Plan Disposition Plan: Admit Discharge Plan Plan Patient Disposition: Admit Acute Care w/in Hospital Problem List Clinical Impression: Hypoxia, Atrial fibrillation with RVR, Bronchitis, COPD (chronic obstructive pulmonary disease)
[2025-06-03 14:55] LABS: Lactate (Lactic Acid) 0.8 mMol/L (0.4-2.0)
[2025-06-03 15:02] LABS: Beta Hydroxybutyrate 3.8 mmol/L (<0.6)
[2025-06-03] MEDS: SODIUM CHLORIDE 0.9% 1000 ML 1,000 ML 75 ML IV (15:26)
[2025-06-03 16:55] LABS: Collection Type, Urine Clean Catch
[2025-06-03] MEDS: AMIODARONE 360 MG IVPB 360 MG/200 ML BAG 16.667 MG IV (16:58)
[2025-06-03 17:03] LABS: Bilirubin,Urine Negative (Negative); Blood,Urine 1+ (Negative); Clarity,Urine Clear (Clear/Hazy); Color,Urine Lt-Yellow (Lt Yel-Yel); Glucose, Urine 4+ (Negative); Ketones,Urine 2+ (Negative); Leukocyte Esterase,Urine Positive (Negative); Nitrite,Urine Negative (Negative); PH,Urine 6.0 (5.0-7.0); Protein,Urine Trace (Neg - Trace); RBC,Urine 1 /hpf (0-3); Specific Gravity,Urine 1.032 (1.001-1.035); Squamous Epithelial Cell,Urine < 1 /hpf (0-5); Urobilinogen,Urine Negative mg/dL (0.0-1.0); WBC,Urine 3 /hpf (0-5)
[2025-06-03] MEDS: oxyCODONE CONTROLLED RELEASE 10 MG TABCR PO (19:39)
[2025-06-03] MEDS: cefTRIAXone/D5w 1gm IV premix 1 GM/50 ML BAG IV (19:40)
--- NOTE | 2025-06-03 20:26 | ESCONSULT_ITS ---
RE: BHAVNA RYDER : 1950 DATE OF CONSULTATION: 06/03/2025 Consultation is asked by the hospitalist. HISTORY OF PRESENT ILLNESS: Mr. Bhavna Ryder is a 74-year-old female who is known to have a history of multiple problems of paroxysmal atrial fibrillation, history of chronic hypertension, history of diabetes mellitus, history of systemic lupus. The patient was in her usual state of health up until a couple of weeks ago when the patient had a bout of passing out feeling and the patient's blood sugar was noted to be down in the . Today, the patient was feeling fairly well and had a sudden onset of a period of disorientation. The patient was brought to the emergency room and was noted to be in atrial fibrillation with fast ventricular response. The patient denied any complaint of skipped beats or palpitations, though denied any complaint of chest pain. Denied any complaint of syncopal spell. The patient did complain of some shortness of breath as well as generalized weakness and disorientation. PAST MEDICAL HISTORY: Significant for history of chronic hypertension for the last several years, history of paroxysmal atrial fibrillation for the last few years, history of systemic lupus for the last several years, history of diabetes mellitus for the last several years. PERSONAL HISTORY: The patient is a nonsmoker, nonalcoholic. FAMILY HISTORY: Noncontributory. PHYSICAL EXAMINATION: VITAL SIGNS: The pertinent physical findings show the patient's blood pressure is 127/94, pulse rate is 114, respiratory rate is 16, temperature is 98, oxygen saturation on room air is 97%. HEAD AND NECK: Head and neck examination is unremarkable. JVP is not elevated. Carotid pulsations are palpable on both the side. No carotid bruits heard. HEART: No cardiomegaly. Clinically, S1 and S2 is normal. No murmur or gallop is appreciated. The heart rhythm is irregular and fast. LUNGS: Show slightly decreased breath sound at the bases. No active wheezing or rales are heard. ABDOMEN: Soft. No organomegaly. EXTREMITIES: No pedal edema. Peripheral pulses in the feet are palpable. NEUROLOGIC: Unremarkable. No focal localizing neuro deficit is appreciated. DIAGNOSTIC DATA: The patient's electrocardiogram showed atrial fibrillation with fast ventricular response with a heart rate of 252 per minute. Minimal nonspecific ST-T changes are noted. Repeated EKG has not shown any acute change. Chest x-ray was reported to show mild elevation of the right hemidiaphragm and normal cardiac size. Bibasilar bronchitis pattern is reported. The CT scan of the head was reported to be unremarkable. LABORATORY DATA: The patient's lab work showed WBC count is 12,500, hemoglobin 10.8 with hematocrit 34.1, the patient's BUN today is 11, creatinine 1.0, potassium level is 3.9, glucose is 222. The patient's BNP level is 37. CLINICAL IMPRESSION: 1. Atrial fibrillation with fast ventricular response. 2. Chronic hypertension. 3. Diabetes mellitus. 4. Systemic lupus as per history. SUGGESTIONS: I agree with the present plan of management with the patient or continuing monitoring the patient from the telemetry unit, continuing the patient on intravenous amiodarone drip, which was started in the ER. Insulin therapy will be continued. Cardiac echo Doppler study will be ordered and anticoagulant therapy will be continued. I will follow the patient with you and I highly thank you very much for letting me participate in the care of the patient. DT: 18:47:59 TT: 19:29:00 Ref: [id number] - TID: [id number]
[2025-06-03] MEDS: HYDROXYCHLOROQUINE 200 MG TABLET PO (20:41)
[2025-06-03] MEDS: APIXABAN 2.5 MG TABLET 5 MG PO (20:41)
[2025-06-04] VITALS (11 sets, daily range): BP systolic 96–149; BP diastolic 48–98; PULSE 77–113; RESP 12–95; TEMP 36.7–37.4; O2SAT 93–97; BMI 26.6
[2025-06-04] MEDS: MELATONIN 3 MG TABLET PO ×2 (00:36→22:26)
[2025-06-04] MEDS: AMIODARONE 360 MG IVPB 360 MG/200 ML BAG 16.667 MG IV (04:37)
[2025-06-04] MEDS: LEVOTHYROXINE SODIUM 100 MCG TABLET PO (05:04)
[2025-06-04 06:00] LABS: Basophils # (Auto) 0.0 Thou/mm3 (0.0-0.2); Basophils % (Auto) 0 % (0-2.5); Eosinophils # (Auto) 0.0 Thou/mm3 (0.0-0.5); Eosinophils % (Auto) 0 % (0-10); Hematocrit 30.3 % (36.0-46.0); Hemoglobin 9.4 g/dL (12.0-16.0); Immature Granulocytes Auto 0.04 Thou/mm3 (0.00-0.00); Lymphocytes # (Auto) 1.2 Thou/mm3 (1.0-4.8); Lymphocytes % (Auto) 10 % (10-50); Mean Corpuscular HGB Conc 31.0 g/dl (31.0-37.0); Mean Corpuscular Hemoglobin 26.4 pg (25.0-35.0); Mean Corpuscular Volume 85 fL (80-100); Monocytes # (Auto) 0.8 Thou/mm3 (0.0-0.8); Monocytes % (Auto) 7 % (0-12); Neutrophils # (Auto) 9.5 Thou/mm3 (1.8-7.7); Neutrophils % (Auto) 82 % (37-80); Nucleated Red Blood Cell # 0.00 Thou/mm3 (0.00-0.00); Nucleated Red Blood Cell % 0 /100 WBC (0); Platelet Count 318 Thou/mm3 (140-440); RDW Standard Deviation 60.7 fL (36.4-46.3); Red Blood Count 3.56 Miln/mm3 (4.00-5.20); White Blood Count 11.5 Thou/mm3 (3.6-11.0)
[2025-06-04 06:06] LABS: Glucose Estimated Average 126 mg/dL (80-131); Hemoglobin A1C 6.0 % Hgb (4.8-6.0)
[2025-06-04 06:35] LABS: Alanine Aminotransferase 15 U/L (10-49); Albumin, Serum 4.3 gm/dL (3.4-4.8); Albumin/Globulin Ratio 2.0 (1.2-2.2); Alkaline Phosphatase 67 U/L (46-116); Anion Gap 19 (7-16); Aspartate Amino Transferase 24 U/L (0-34); BUN/Creatinine Ratio 11 Ratio (12-20); Bilirubin,Total < 0.2 mg/dL (0.3-1.2); Blood Urea Nitrogen 9 mg/dL (9-23); Calcium 9.0 mg/dL (8.3-10.6); Calcium (Corrected) 9.0 mg/dL (8.5-10.1); Carbon Dioxide 18.4 mMol/L (20.0-31.0); Cardiac Risk Estimate 2.2 RATIO (3.7-5.6); Chloride 100 mMol/L (98-107); Cholesterol 117 mg/dL (132-200); Creatinine (Component) 0.8 mg/dL (0.6-1.3); Estimated Creatinine Clearance 68.0 mL/min (>60); Globulin 2.1 gm/dL (2.3-3.5); Glucose 124 mg/dL (74-106); HDL Cholesterol 53 mg/dL (40-60); LDL Cholesterol,Calculated 50 mg/dL (0-130); Magnesium 1.8 mg/dL (1.6-2.6); Osmolality,Calculated 273 (275-295); Phosphorous 3.6 mg/dL (2.4-5.1); Potassium 4.1 mMol/L (3.4-5.1); Sodium 137 mMol/L (136-145); Total Protein 6.4 gm/dL (5.7-8.2); Triglycerides 70 mg/dL (30-150); eGFR > 60 See Note
[2025-06-04] MEDS: OXYCODONE MYRISTATE 18 MG PO ×2 (07:56→17:21)
[2025-06-04 09:19] LABS: Beta Hydroxybutyrate 4.7 mmol/L (<0.6)
[2025-06-04] MEDS: Magnesium Sulfate 2 GM Ivpb 2 GM/50 ML BAG IV (10:01)
[2025-06-04] MEDS: APIXABAN 2.5 MG TABLET 5 MG PO ×2 (10:03→20:37)
[2025-06-04] MEDS: METOPROLOL SUCCINATE XL 25 MG TABCR 50 MG PO (10:03)
[2025-06-04] MEDS: HYDROXYCHLOROQUINE 200 MG TABLET PO ×2 (10:04→20:36)
[2025-06-04] MEDS: DEXTROSE 5%-NS 1,000 ML 125 ML IV (10:04)
[2025-06-04] MEDS: THIAMINE INJ 250 MG in SODIUM CHLORIDE 0.9% 100 ML 205 MG IV (10:04)
[2025-06-04] MEDS: cefTRIAXone/D5w 1gm IV premix 1 GM/50 ML BAG IV (13:23)
--- NOTE | 2025-06-04 13:32 | PC.SS ---
Cooler Tender (BREANNA) Roxy met with the patient at the bedside to complete the initial assessment and discuss the discharge plan. Per chart review, the patient was BIBA from home for evaluation of altered mental status.??SW introduced self, role, and reason for the consult. Patient verbally consented to participate in the assessment. Patient is alert and oriented to person, place, time, and situation. Patient designated her son, Brian Ryder, , as her surrogate medical decision maker. Patient is Bhavna Ryder, 74 y/o Wallisian-speaking female residing with her son at [address] [place] [address]. Patient has IHSS hours, and her son is her caregiver. Patient at baseline ambulated with a walker. Patient's PCP is Dr. Vivien Hillman. Patient's discharge plan is home. The patient's son will provide transportation. Surrogate medical decision maker: SonBrian, Discharge plan: Home
--- NOTE | 2025-06-04 13:33 | ESPR_ITS ---
Documentation for date of: 06/04/25 Subjective Subjective Interval history: Patient evaluated bedside, overnight events and labs reviewed, complaining of nausea this morning, IV amiodarone scheduled to be completed late in the afternoon, will transition to p.o. amiodarone, 200 mg twice daily. Labs pertinent for acidosis and anion gap, glucose within normal range, initiated D5 NS for starvation ketosis. QTc 474, give IV magnesium. Ordered physical therapy. Patient is complaining of severe pain in her neck, possible degenerative changes Will order MRI cervical spine on Friday. Exam Vital Signs Temp Pulse Resp BP Pulse Ox O2 Del Method O2 Flow Rate 99.3 F 100 18 131/91 H 94 L Room Air 6 06/04/25 08:00 06/04/25 10:03 06/04/25 08:00 06/04/25 10:03 06/04/25 08:00 06/04/25 08:00 06/03/25 09:37 Narrative Exam GENERAL: AOx3, no acute distress HEENT: mucous membranes moist, bilateral sclera anicteric CARDIOVASCULAR: regular rhythm, tachycardic, S1/S2 present, no murmurs appreciated PULMONARY: clear to auscultation bilaterally, no rales/rhonchi/wheezes ABDOMINAL: soft, non-tender, non-distended, no rebound/guarding, bowel sounds present EXTREMITIES: trace peripheral edema SKIN: warm and dry, intact, no rashes NEURO: CN II-XII grossly intact, no focal deficits, alert, following commands Objective Labs 06/04/25 05:12 06/04/25 13:55 Labs: Laboratory Results - last 24 hr 06/03/25 06/03/25 06/04/25 10:40 14:48 05:12 WBC 11.5 H RBC 3.56 L Hgb 9.4 L Hct 30.3 L MCV 85 MCH 26.4 MCHC 31.0 RDW Std Deviation 60.7 H Plt Count 318 Neut % (Auto) 82 H Lymph % (Auto) 10 [place] % (Auto) 7 Eos % (Auto) 0 Baso % (Auto) 0 Neut # (Auto) 9.5 H Lymph # (Auto) 1.2 [place] # (Auto) 0.8 Eos # (Auto) 0.0 Baso # (Auto) 0.0 Immature Gran # (Auto) 0.04 H Absolute Nucleated RBC 0.00 Immature Gran % 0 Nucleated RBC % 0 Sodium 137 Potassium 4.1 Chloride 100 Carbon Dioxide 18.4 L Anion Gap 19 H BUN 9 Creatinine 0.8 Estim Creat Clear Calc 68.0 eGFR > 60 BUN/Creatinine Ratio 11 L Glucose [address] Glu mg/dL 126 Hemoglobin A1c 6.0 Calculated Osmolality 273 L Lactic Acid 0.8 Calcium 9.0 Corrected Calcium 9.0 Phosphorus 3.6 Magnesium 1.8 Total Bilirubin < 0.2 L AST 24 ALT 15 Alkaline Phosphatase 67 Total Protein 6.4 Albumin 4.3 D Globulin 2.1 L Albumin/Globulin Ratio 2.0 Triglycerides 70 Cholesterol 117 L LDL Cholesterol, Calc 50 HDL Cholesterol 53 Cholesterol/HDL Ratio 2.2 L Beta-Hydroxybutyrate/Acetoacetate 3.8 H Ur Collection Type Clean Catch Urine Color Lt-Yellow Urine Clarity Clear Urine pH 6.0 Ur Specific [place] 1.032 Urine Protein Trace Urine Glucose (UA) 4+ A Urine Ketones 2+ A Urine Blood 1+ A Urine Nitrite Negative Urine Bilirubin Negative Urine Urobilinogen (Auto) Negative Ur Leukocyte Esterase Positive Urine RBC 1 Urine WBC 3 Ur Squamous Epith Cells < 1 Urine Bacteria None 06/04/25 08:40 WBC RBC Hgb Hct MCV MCH MCHC RDW Std Deviation Plt Count Neut % (Auto) Lymph % (Auto) [place] % (Auto) Eos % (Auto) Baso % (Auto) Neut # (Auto) Lymph # (Auto) [place] # (Auto) Eos # (Auto) Baso # (Auto) Immature Gran # (Auto) Absolute Nucleated RBC Immature Gran % Nucleated RBC % Sodium Potassium Chloride Carbon Dioxide Anion Gap BUN Creatinine Estim Creat Clear Calc eGFR BUN/Creatinine Ratio Glucose Estimated Ave Glu mg/dL Hemoglobin A1c Calculated Osmolality Lactic Acid Calcium Corrected Calcium Phosphorus Magnesium Total Bilirubin AST ALT Alkaline Phosphatase Total Protein Albumin Globulin Albumin/Globulin Ratio Triglycerides Cholesterol LDL Cholesterol, Calc HDL Cholesterol Cholesterol/HDL Ratio Beta-Hydroxybutyrate/Acetoacetate 4.7 H Ur Collection Type Urine Color Urine Clarity Urine pH Ur Specific [place] Urine Protein Urine Glucose (UA) Urine Ketones Urine Blood Urine Nitrite Urine Bilirubin Urine Urobilinogen (Auto) Ur Leukocyte Esterase Urine RBC Urine WBC Ur Squamous Epith Cells Urine Bacteria ABG Interpretation ABG results: 06/03/25 09:38 ABG pH 7.37 ABG pCO2 41 ABG pO2 90 ABG HCO3 24 ABG O2 Saturation 97 ABG Base Excess -2 Quality Measures Quality Measures none Advance care planning discussed with:: patient Assessment & Plan Assessment Current Active Medications: Generic Name Dose Route Start Last Admin Trade Name Germán PRN Reason Stop Dose Admin Acetaminophen 650 mg 06/03/25 13:54 Acetaminophen 325 Mg Tablet PO 07/03/25 13:53 Q6H PRN Fever >101.5 Acetaminophen 650 mg 06/03/25 13:54 Acetaminophen Supp 650 Mg Supp MT 07/03/25 13:53 Q6HR PRN Fever > 100.4 or pain 1-3 Albuterol/Ipratropium 3 ml 06/03/25 14:55 Albuterol/Ipratropium (Duoneb) Rt Deisy 3 Ml Nebu INH 07/03/25 14:54 Q2HR PRN SHORTNESS OF BREATH OR WHEEZE Amiodarone HCl 200 mg 06/04/25 21:00 Amiodarone Hcl 200 Mg Tablet PO 07/04/25 20:59 BID THANH Apixaban 5 mg 06/03/25 21:00 06/04/25 10:03 Apixaban 2.5 Mg Tablet PO 07/03/25 20:59 5 mg BID THANH Administration Buspirone HCl 15 mg 06/04/25 09:00 06/04/25 10:02 Buspirone Hcl 5 Mg Tablet PO 07/04/25 08:59 15 mg QDAY THANH Administration (Oxycodone Myristate 0 ea 06/04/25 08:00 06/04/25 07:56 [Xtampza Er] 18 Mg PO 07/04/25 07:59 1 capsule Cap,Sprinkle BIDWM THANH Administration Cyclobenzaprine HCl 10 mg 06/03/25 15:00 06/04/25 10:02 Cyclobenzaprine 5 Mg Tablet PO 07/03/25 14:59 10 mg QDAY THANH Administration Dextrose 25 ml 06/03/25 14:53 Dextrose 50%-Water Inj 50 Ml Syringe IV 07/03/25 14:52 Q15MIN PRN BG 50-70 responsive npo pt Dextrose 50 ml 06/03/25 14:53 Dextrose 50%-Water Inj 50 Ml Syringe IV 07/03/25 14:52 Q15MIN PRN BG <50 OR BG <70 & pt unresponsive Fluoxetine HCl 10 mg 06/04/25 09:00 06/04/25 10:03 Fluoxetine Hcl 10 Mg Capsule PO 07/04/25 08:59 10 mg QDAY THANH Administration Glucagon 1 mg 06/03/25 14:53 Glucagon Inj 1 Mg Vial IM Q15MIN PRN BG <70, and no IV access Hydroxychloroquine Sulfate 200 mg 06/03/25 21:00 06/04/25 10:04 Hydroxychloroquine 200 Mg Tablet PO 06/10/25 20:59 200 mg BID THANH Administration Amiodarone HCl/Dextrose 360 mg in 200 mls @ 16.667 mls/hr 06/03/25 16:40 06/04/25 04:37 Nexterone Ivpb IV 06/04/25 16:39 16.667 mls/hr .Q12H THANH Administration Ceftriaxone Sodium/Dextrose 1 gm in 50 mls @ 100 mls/hr 06/03/25 17:14 06/04/25 13:23 Rocephin/D5w 1gm Iv Premix IV 06/10/25 17:13 100 mls/hr QDAY@1400 THANH Administration Dextrose/Sodium Chloride 1,000 mls @ 125 mls/hr 06/04/25 08:04 06/04/25 10:04 D5-Ns IV 06/04/25 16:03 125 mls/hr .Q8H THANH Administration Insulin Human Lispro 0 unit 06/03/25 17:00 06/04/25 11:13 Insulin Lispro (Admelog) 1 Unit/0.01 Ml Unit SC 07/03/25 16:59 Not Given AC THANH Protocol Levothyroxine Sodium 100 mcg 06/04/25 06:00 06/04/25 05:04 Levothyroxine Sodium 100 Mcg Tablet PO 07/04/25 05:59 100 mcg ACBR THANH Administration Melatonin 3 mg 06/03/25 14:42 06/04/25 00:36 Melatonin 3 Mg Tablet PO 07/03/25 20:59 3 mg HS PRN Administration insomnia Metoprolol Succinate 50 mg 06/04/25 09:00 06/04/25 10:03 Metoprolol Succinate Xl 25 Mg Tabcr PO 07/04/25 08:59 50 mg QDAY THANH Administration Sennosides 1 tab 06/03/25 13:54 06/04/25 05:07 Senna Tablet PO 07/03/25 13:53 1 tab QDAY PRN Administration constipation Protocol Plan Bhavna Ryder 74F pmhx significant for NIDDM2, HTN, atrial fibrillation, mitral valve prolapse, breast CA s/p excision and radiation and SLE who presents with one week of gradual weakness and confusion, admitted for management of afib RVR and encephalopathy workup. #Acute Encephalopathy- resolved #Starvation ketosis Presents with one week of worsening confusion and generalized weakness. Endorses poor PO intake and recent episodes of hypoglycemia. Last BM 1 week ago. AOx3 in ED. WBC 12.5 and anion gap 19. Electrolytes wnl. Ddx: metabolic (HAGMA, elevated lactic vs beta hydroxy as patient has hx of DKA) vs infectios (UTI) vs polypharmacy (taking extra Xtampza due to exacerbation of back pain and neck pain, zolpidem) vs hypoglycemia Plan: - F/u lactate, BHB, and UA - Labs pertinent for acidosis and anion gap, glucose within normal range, initiated D5 NS for starvation ketosis. - Avoid sedating agents - IV D5 NS 1000 ml #Atrial fibrillation RVR #Hx atrial fibrillation on Eliquis #?CHF Presented with atrial fibrillation RVR with hx of afib already on Eliquis and metoprolol XL 50 QD, unknown chronicity or paroxysmal vs chronic. EKG shows SVT rate 152 QTc 474. Questionable hx of CHF but patient reports taking lasix for CHF. Previously saw Dr. Bianchi. s/p IV dilt x1 in ED without conversion. Likely 2/2 underlying cause of encephalopathy. Plan: - Amiodarone drip scheduled to be completed late in the afternoon, will transition to p.o. amiodarone, 200 mg twice daily. QTc 474, give IV magnesium. - Continue home metoprolol XL 50 mg QD - Telemetry for monitoring - Keep K>4 and Mg>2 at all times - Cardiology consulted, recs appreciated #IDDM2 Previously on Lantus 30u, however over the past few months, has had hypoglycemic episodes and has not been taking insulin. Still taking metformin Plan: - F/u a1c and lipid panel - SSI #Chronic back pain #Neck pain New muscular neck pain for the past week and exacerbation of chronic back pain. Xtampza ER 13.5 BID for years and cyclobenzaprine 10 mg QD. Denies light sensitivity or neck rigidity. Does have muscular pain when turning head and TTP to cervical paraspinal muscles. Plan: - Instructed to bring home Xtampza ER 13.5 mg BID - Home cyclobenzaprine 10 mg BID #SLE #Depression #Hypothyroidism #Asthma Does not appear to be in SLE flare, denies myalgias, joint pain, excessive fatigue. Chronic medical conditions nonpertinent to the following presentation Plan: - Continue home hydroxychloroquine 200 mg BID, levothyroxine 100 mcg acbr - Duoneb q2h prn Hospital management: Lines: PIV Diet: carb consistent low Bowel: Senna GI prophylaxis: not indicated DVT prophylaxis: Eliquis 5 mg BID Disposition: tele, amio drip, AMS workup CODE STATUS: FULL CODE Plan of care discussed with attending Dr. Driver PGY-3 Dr. Richardson Attending Provider Attestation/Addendum Gianna Reyes, , attest that I was physically present for the kelly portions of the service and evaluated the patient with the resident and I reviewed and discussed the case with the resident and agree with the resident's findings and plans of care as documented above Patient seen and evaluated this AM. She states that she is feeling much improved today. She continues to complain of her neck pain, point tenderness around c5-6 on palpation of vertebral body and paraspinal muscles. Patient denies any numbness and tingling in her b/l UE and LE. She also denies any saddle anesthesia or bowel/bladder incontinence. Due to persistent pain, will consider MRI on Friday. Patient remains on amiodarone drip at this time. Will transition to PO amio once drip is complete. HR remains in the high 100s and remains in Afib. SHe denies any shortness of breath, chest pain, shortness of breath. Patient remains on rocephin due to suspected UTI. Patient able to tolerate PO intake today. Anion gap remains to be 19, likely due to starvation ketosis. mild metabolic acidosis noted due to normal saline likely. Patient unlikely to have DKA. She denies any abdominal pain, nausea or vomitign. Will repeat renal panel in afternoon. Will give D5/NS as well due to starvation.
[2025-06-04 14:35] LABS: Albumin, Serum 4.1 gm/dL (3.4-4.8); Anion Gap 15 (7-16); BUN/Creatinine Ratio 10 Ratio (12-20); Blood Urea Nitrogen 8 mg/dL (9-23); Calcium 8.9 mg/dL (8.3-10.6); Calcium (Corrected) 8.9 mg/dL (8.5-10.1); Carbon Dioxide 20.3 mMol/L (20.0-31.0); Chloride 100 mMol/L (98-107); Creatinine (Component) 0.8 mg/dL (0.6-1.3); Estimated Creatinine Clearance 68.0 mL/min (>60); Glucose 122 mg/dL (74-106); Osmolality,Calculated 269 (275-295); Phosphorous 3.4 mg/dL (2.4-5.1); Potassium 4.1 mMol/L (3.4-5.1); Sodium 135 mMol/L (136-145); eGFR > 60 See Note
--- NOTE | 2025-06-04 14:52 | ESPR_ITS ---
RE: KEYUR RYDER : 1950 DATE OF SERVICE: 06/04/2025 SUBJECTIVE: Ms. Ryder has converted back to normal sinus rhythm, though the patient is complaining of symptoms of neck pain as well as back pain. Denies any complaints of chest pain. Denies any complaints of dizziness or diaphoresis. Denies any complaint of shortness of breath. OBJECTIVE: Vital Signs: The patient's blood pressure this morning is 131/91, the pulse rate is 100 per minute, temperature is 99.3, respiratory rate is 18 per minute, and the patient's oximetry saturation is 94% on room air. Heart: The heart examination is clear. Heart rhythm this morning is staying in normal sinus rhythm with occasional isolated PACs. Lungs: The lungs show slightly decreased breaths under the bases. Extremities: No pedal edema is noted. LABORATORY DATA: The patient's lab work this morning showed WBC count is 11,500, hemoglobin 9.4 with hematocrit of 30.3. The patient's BUN today is 9, creatinine 0.8, potassium level is 4.1, glucose is 124. The cholesterol level is 117 with HDL cholesterol of 53, LDL cholesterol of 50 and triglycerides of 70s. PLAN: The plan to change the IV amiodarone once the present bottle runs out to p.o. amiodarone. The rest of the medications will be continued as before. Telemetry monitoring will be continued. Discharge planning will be as per the hospitalist. The patient had a cardiac echo Doppler study done earlier today, which showed normal cardiac chamber size with normal left ventricular systolic function and left ventricular ejection fraction of 50-55%, mild mitral regurgitation, and mild tricuspid regurgitation was noted. Aortic sclerosis was also noted without any aortic stenosis. DT: 14:01:43 TT: 14:51:00 Ref: [id number] - TID: [id number]
--- NOTE | 2025-06-04 15:11 | PC.SS ---
Rounding note: Pending MRI of the neck on Friday and PT evaluation.
[2025-06-04] MEDS: AMIODARONE HCL 200 MG TABLET PO (20:37)
[2025-06-05] VITALS (11 sets, daily range): BP systolic 120–144; BP diastolic 64–84; PULSE 82–93; RESP 12–93; TEMP 36.4–37.4; O2SAT 93–96; BMI 26.6
[2025-06-05] MEDS: LEVOTHYROXINE SODIUM 100 MCG TABLET PO (05:29)
[2025-06-05 06:26] LABS: Basophils # (Auto) 0.0 Thou/mm3 (0.0-0.2); Basophils % (Auto) 0 % (0-2.5); Eosinophils # (Auto) 0.2 Thou/mm3 (0.0-0.5); Eosinophils % (Auto) 2 % (0-10); Hematocrit 29.7 % (36.0-46.0); Hemoglobin 9.3 g/dL (12.0-16.0); Immature Granulocytes Auto 0.03 Thou/mm3 (0.00-0.00); Lymphocytes # (Auto) 0.7 Thou/mm3 (1.0-4.8); Lymphocytes % (Auto) 7 % (10-50); Mean Corpuscular HGB Conc 31.3 g/dl (31.0-37.0); Mean Corpuscular Hemoglobin 26.4 pg (25.0-35.0); Mean Corpuscular Volume 84 fL (80-100); Monocytes # (Auto) 1.0 Thou/mm3 (0.0-0.8); Monocytes % (Auto) 9 % (0-12); Neutrophils # (Auto) 8.3 Thou/mm3 (1.8-7.7); Neutrophils % (Auto) 82 % (37-80); Nucleated Red Blood Cell # 0.00 Thou/mm3 (0.00-0.00); Nucleated Red Blood Cell % 0 /100 WBC (0); Platelet Count 355 Thou/mm3 (140-440); RDW Standard Deviation 58.4 fL (36.4-46.3); Red Blood Count 3.52 Miln/mm3 (4.00-5.20); White Blood Count 10.1 Thou/mm3 (3.6-11.0)
[2025-06-05 06:55] LABS: Alanine Aminotransferase 12 U/L (10-49); Albumin, Serum 4.2 gm/dL (3.4-4.8); Albumin/Globulin Ratio 1.9 (1.2-2.2); Alkaline Phosphatase 70 U/L (46-116); Anion Gap 13 (7-16); Aspartate Amino Transferase 16 U/L (0-34); BUN/Creatinine Ratio 14 Ratio (12-20); Bilirubin,Total 0.2 mg/dL (0.3-1.2); Blood Urea Nitrogen 11 mg/dL (9-23); Calcium 9.2 mg/dL (8.3-10.6); Calcium (Corrected) 9.2 mg/dL (8.5-10.1); Carbon Dioxide 22.1 mMol/L (20.0-31.0); Chloride 99 mMol/L (98-107); Creatinine (Component) 0.8 mg/dL (0.6-1.3); Estimated Creatinine Clearance 68.0 mL/min (>60); Globulin 2.2 gm/dL (2.3-3.5); Glucose 138 mg/dL (74-106); Magnesium 2.0 mg/dL (1.6-2.6); Osmolality,Calculated 269 (275-295); Potassium 4.1 mMol/L (3.4-5.1); Sodium 134 mMol/L (136-145); Total Protein 6.4 gm/dL (5.7-8.2); eGFR > 60 See Note
[2025-06-05] MEDS: OXYCODONE MYRISTATE 18 MG PO ×2 (07:59→17:49)
[2025-06-05 08:49] LABS: Phosphorous 3.4 mg/dL (2.4-5.1)
[2025-06-05] MEDS: METOPROLOL SUCCINATE XL 25 MG TABCR 50 MG PO (09:27)
[2025-06-05] MEDS: APIXABAN 2.5 MG TABLET 5 MG PO ×2 (09:28→21:31)
[2025-06-05] MEDS: AMIODARONE HCL 200 MG TABLET PO ×2 (09:28→21:34)
[2025-06-05] MEDS: HYDROXYCHLOROQUINE 200 MG TABLET PO ×2 (09:29→21:31)
[2025-06-05] MEDS: POLYETHYLENE GLYCOL 17 GM PACKET PO (11:58)
--- NOTE | 2025-06-05 15:18 | ESPR_ITS ---
<Statement entered by Chris Hebert MD - 06/05/25 16:16> I have reviewed the note and agree with the resident's assessment & plan with exceptions as below. I have personally reviewed labs, imaging, home meds/prior records, examined the patient, formulated and discussed management plan with my attending Patient was seen and examined at bedside this morning. No acute overnight events. Patient is feeling a lot better and urine culture showed contamination therefore we will give Rocephin 1 more dose today to complete 3-day treatment. Otherwise PT recommended [facility] facility. Patient has not had a bowel movement for multiple days and will give MiraLAX x 1 for constipation. Patient will have MRI tomorrow of the neck. Chris Hebert PGY2 Disclaimer: Even though this this note was dictated by speech recognition and even though it was carefully revised there may still be minor errors in computer engineering professor due to voice recognition software. Documentation for date of: 06/05/25 Subjective Subjective Interval history: No acute overnight events. Patient is examined at bedside. Patient reports feeling much better today, back pain tolerable and nausea resolved. Patient is AOx4. Neck pain improved since yesterday without any supplemental pain medication. Labs and vitals reviewed. SBP 100-120, telemetry sinus HR 80-90. Hemoglobin stable 9.3, sodium 134, magnesium 2.0. Encephalopathy resolved, PT ordered recommending SNF. Continue amiodarone, metoprolol and Eliquis. Given MiraLAX 17 g x 1 for constipation. Possible MRI of neck scheduled for tomorrow if patient has not been discharged. Exam Vital Signs Temp Pulse Resp BP Pulse Ox O2 Del Method O2 Flow Rate 98.3 F 88 18 144/84 H 94 L Room Air 6 06/05/25 08:00 06/05/25 09:30 06/05/25 09:30 06/05/25 09:28 06/05/25 09:30 06/05/25 08:00 06/03/25 09:37 Narrative Exam GENERAL: AOx3, no acute distress HEENT: mucous membranes moist, bilateral sclera anicteric CARDIOVASCULAR: regular rhythm and rate, S1/S2 present, no murmurs appreciated PULMONARY: clear to auscultation bilaterally, no rales/rhonchi/wheezes ABDOMINAL: soft, non-tender, non-distended, no rebound/guarding, bowel sounds present EXTREMITIES: trace peripheral edema SKIN: warm and dry, intact, no rashes NEURO: CN II-XII grossly intact, no focal deficits, alert, following commands Objective Labs 06/05/25 05:09 06/05/25 05:09 Labs: Laboratory Results - last 24 hr 06/05/25 05:09 WBC 10.1 RBC 3.52 L Hgb 9.3 L Hct 29.7 L MCV 84 MCH 26.4 MCHC 31.3 RDW Std Deviation 58.4 H Plt Count 355 D Neut % (Auto) 82 H Lymph % (Auto) 7 L [place] % (Auto) 9 Eos % (Auto) 2 Baso % (Auto) 0 Neut # (Auto) 8.3 H Lymph # (Auto) 0.7 L [place] # (Auto) 1.0 H Eos # (Auto) 0.2 Baso # (Auto) 0.0 Immature Gran # (Auto) 0.03 H Absolute Nucleated RBC 0.00 Immature Gran % 0 Nucleated RBC % 0 Sodium 134 L Potassium 4.1 Chloride 99 Carbon Dioxide 22.1 Anion Gap 13 BUN 11 Creatinine 0.8 Estim Creat Clear Calc 68.0 eGFR > 60 BUN/Creatinine Ratio 14 Glucose 138 H Calculated Osmolality 269 L Calcium 9.2 Corrected Calcium 9.2 Phosphorus 3.4 Magnesium 2.0 Total Bilirubin 0.2 L AST 16 ALT 12 Alkaline Phosphatase 70 Total Protein 6.4 Albumin 4.2 Globulin 2.2 L Albumin/Globulin Ratio 1.9 ABG Interpretation ABG results: 06/03/25 09:38 ABG pH 7.37 ABG pCO2 41 ABG pO2 90 ABG HCO3 24 ABG O2 Saturation 97 ABG Base Excess -2 Quality Measures Quality Measures none Advance care planning discussed with:: patient Assessment & Plan Assessment Current Active Medications: Generic Name Dose Route Start Last Admin Trade Name Freq PRN Reason Stop Dose Admin Acetaminophen 650 mg 06/03/25 13:54 Acetaminophen 325 Mg Tablet PO 07/03/25 13:53 Q6H PRN Fever >101.5 Acetaminophen 650 mg 06/03/25 13:54 Acetaminophen Supp 650 Mg Supp MA 07/03/25 13:53 Q6HR PRN Fever > 100.4 or pain 1-3 Albuterol/Ipratropium 3 ml 06/03/25 14:55 Albuterol/Ipratropium (Duoneb) Rt Deisy 3 Ml Nebu INH 07/03/25 14:54 Q2HR PRN SHORTNESS OF BREATH OR WHEEZE Amiodarone HCl 200 mg 06/04/25 21:00 06/05/25 09:28 Amiodarone Hcl 200 Mg Tablet PO 07/04/25 20:59 200 mg BID THANH Administration Apixaban 5 mg 06/03/25 21:00 06/05/25 09:28 Apixaban 2.5 Mg Tablet PO 07/03/25 20:59 5 mg BID THANH Administration Buspirone HCl 15 mg 06/04/25 09:00 06/05/25 09:27 Buspirone Hcl 5 Mg Tablet PO 07/04/25 08:59 15 mg QDAY THANH Administration Cephalexin HCl 250 mg 06/05/25 12:00 06/05/25 12:05 Cephalexin 250 Mg Capsule PO 06/12/25 11:59 Not Given QID THANH (Oxycodone Myristate 0 ea 06/04/25 08:00 06/05/25 07:59 [Xtampza Er] 18 Mg PO 07/04/25 07:59 1 capsule Cap,Sprinkle BIDWM THANH Administration Cyclobenzaprine HCl 10 mg 06/03/25 15:00 06/05/25 09:27 Cyclobenzaprine 5 Mg Tablet PO 07/03/25 14:59 10 mg QDAY THANH Administration Dextrose 25 ml 06/03/25 14:53 Dextrose 50%-Water Inj 50 Ml Syringe IV 07/03/25 14:52 Q15MIN PRN BG 50-70 responsive npo pt Dextrose 50 ml 06/03/25 14:53 Dextrose 50%-Water Inj 50 Ml Syringe IV 07/03/25 14:52 Q15MIN PRN BG <50 OR BG <70 & pt unresponsive Fluoxetine HCl 10 mg 06/04/25 09:00 06/05/25 09:28 Fluoxetine Hcl 10 Mg Capsule PO 07/04/25 08:59 10 mg QDAY THANH Administration Glucagon 1 mg 06/03/25 14:53 Glucagon Inj 1 Mg Vial IM Q15MIN PRN BG <70, and no IV access Hydroxychloroquine Sulfate 200 mg 06/03/25 21:00 06/05/25 09:29 Hydroxychloroquine 200 Mg Tablet PO 06/10/25 20:59 200 mg BID THANH Administration Insulin Human Lispro 0 unit 06/03/25 17:00 06/05/25 12:06 Insulin Lispro (Admelog) 1 Unit/0.01 Ml Unit SC 07/03/25 16:59 Not Given AC THANH Protocol Levothyroxine Sodium 100 mcg 06/04/25 06:00 06/05/25 05:29 Levothyroxine Sodium 100 Mcg Tablet PO 07/04/25 05:59 100 mcg ACBR THANH Administration Melatonin 3 mg 06/03/25 14:42 06/04/25 22:26 Melatonin 3 Mg Tablet PO 07/03/25 20:59 3 mg HS PRN Administration insomnia Metoprolol Succinate 50 mg 06/04/25 09:00 06/05/25 09:27 Metoprolol Succinate Xl 25 Mg Tabcr PO 07/04/25 08:59 50 mg QDAY THANH Administration Sennosides 1 tab 06/03/25 13:54 06/05/25 05:29 Senna Tablet PO 07/03/25 13:53 1 tab QDAY PRN Administration constipation Protocol Plan Bhavna Ryder 74F pmhx significant for NIDDM2, HTN, atrial fibrillation, mitral valve prolapse, breast CA s/p excision and radiation and SLE who presents with one week of gradual weakness and confusion, admitted for management of afib RVR and encephalopathy workup. #Acute Encephalopathy- resolved #Starvation ketosis- resolved Presents with one week of worsening confusion and generalized weakness. Endorses poor PO intake and recent episodes of hypoglycemia. Last BM 1 week ago. AOx3 in ED. WBC 12.5 and anion gap 19. Electrolytes wnl. BHB 4.7. Initially thought to have UTI, however, UCx negative and possible contamination. Ddx: metabolic (HAGMA, elevated lactic vs beta hydroxy as patient has hx of DKA) vs infectios (UTI) vs polypharmacy (taking extra Xtampza due to exacerbation of back pain and neck pain, zolpidem) vs hypoglycemia Plan: - Avoid sedating agents - PT ordered: recommend SNF - Continue Ceftriaxone (06/03- #Atrial fibrillation RVR, resolved #Hx atrial fibrillation on Eliquis #?CHF Presented with atrial fibrillation RVR with hx of afib already on Eliquis and metoprolol XL 50 QD, unknown chronicity or paroxysmal vs chronic. EKG shows SVT rate 152 QTc 474. Questionable hx of CHF but patient reports taking lasix for CHF. Previously saw Dr. Bianchi. s/p IV dilt x1 in ED without conversion. Likely 2/2 underlying cause of encephalopathy. Plan: - PO amiodarone, 200 mg twice daily - Continue home metoprolol XL 50 mg QD - Telemetry for monitoring - Keep K>4 and Mg>2 at all times - Cardiology consulted, recs appreciated #IDDM2 Previously on Lantus 30u, however over the past few months, has had hypoglycemic episodes and has not been taking insulin. Still taking metformin. A1c 6.0. Trig 70, cholesterol 117, LDL 50, HDL 53. Plan: - SSI #Chronic back pain #Neck pain, improved New muscular neck pain for the past week and exacerbation of chronic back pain. Xtampza ER 13.5 BID for years and cyclobenzaprine 10 mg QD. Denies light sensitivity or neck rigidity. Does have muscular pain when turning head and TTP to cervical paraspinal muscles.ke Plan: - Instructed to bring home Xtampza ER 13.5 mg BID - Home cyclobenzaprine 10 mg BID #SLE #Depression #Hypothyroidism #Asthma Does not appear to be in SLE flare, denies myalgias, joint pain, excessive fatigue. Chronic medical conditions nonpertinent to the following presentation Plan: - Continue home hydroxychloroquine 200 mg BID, levothyroxine 100 mcg acbr - Duoneb q2h prn Hospital management: Lines: PIV Diet: carb consistent low Bowel: Senna GI prophylaxis: not indicated DVT prophylaxis: Eliquis 5 mg BID Disposition: tele, pending SNF CODE STATUS: FULL CODE Plan of care discussed with attending Dr. Driver and PGY-2 Dr. Rojas. Fara Ruvalcaba DO Internal Medicine PGY-1 Attending Provider Attestation/Addendum Gianna Reyes DO, attest that I was physically present for the kelly portions of the service and evaluated the patient with the resident and I reviewed and discussed the case with the resident and agree with the resident's findings and plans of care as documented above Patient seen and evaluated this AM. Patient reports feeling improved, patient has been sinus rhythm with HR in the 80s. She denies any shortness of breath, chest pain, fevers, chills, nausea, vomiting. Patient reports improvement of her neck pain as well. Final Ucx noted to have 70k CFU and likely contaminated. Patient received rocephin and will complete 3 days of rocephin today. Patient underwent physical therapy and will need SNF. She is currently unsure if she wishes to go to SNF and speak with family. MRI cervical spine ordered, but if pain is improved, patient can f/u with PCP for MR of C-spine.
--- NOTE | 2025-06-05 15:47 | PC.SS ---
Network Pricing Consultant, Sonal notified by Dr. Driver that physical therapy contacted her to inform that patient would benefit [facility]. SW met with patient [id number]. SW introduced self, role and reason for visit. Patient informed SW that physical therapy recommend SNF placement for short-term therapy. However, she needs to speak to her son, Brian because her SS services would be paused. Patient provided with pamphlets for [facility], [facility], [facility], and [facility]. Patient reported that she will have an answer for SW tomorrow. If patient declines SNF then she needs to return home with home health services.
--- NOTE | 2025-06-05 16:05 | ESPR_ITS ---
RE: KEYUR RYDER : 1950 DATE OF SERVICE: 06/05/2025 SUBJECTIVE: Ms. Ryder is still complaining of symptoms of neck ache. The patient is also still weak and is having the physiotherapy to help the patient ambulate. The patient is not having any symptoms of chest pain. Denies any complaints of skipped beats or palpitations. Denies any complaints of dizziness or diaphoresis. OBJECTIVE: Vital Signs: Heart rhythm is staying in normal sinus rhythm with a rate of 93 per minute. The patient's blood pressure is 144/84, the respiratory rate is 20, temperature is 98.3, the oximetry saturation is 94%. Heart: The heart examination is clear. Lungs: The lungs show slightly decreased breath sounds at the bases. Extremities: No pedal edema is noted. LABORATORY DATA: Today shows WBC count is down to normal and 10,100, hemoglobin 9.3 with a hematocrit of 29.7. BUN today is 11, creatinine 0.8, potassium level is 4.1. The heart rhythm is staying in normal sinus rhythm. PLAN: To continue the patient on present medications of amiodarone 200 mg b.i.d., apixaban 5 mg b.i.d., beta-carline therapy will also be continued. Discharge planning is as per the hospitalist. DT: 12:52:00 TT: 16:03:00 Ref: [id number] - TID: [id number]
[2025-06-05] MEDS: ACETAMINOPHEN 325 MG TABLET 650 MG PO (16:17)
[2025-06-05] MEDS: cefTRIAXone/D5w 1gm IV premix 1 GM/50 ML BAG IV (16:18)
[2025-06-05 20:56] LABS: Vitamin B12 174 pg/mL (211-911)
[2025-06-05] MEDS: ZOLPIDEM 5 MG TABLET PO (21:34)
[2025-06-06] VITALS (11 sets, daily range): BP systolic 119–165; BP diastolic 68–87; PULSE 78–100; RESP 15–94; TEMP 36.3–37.4; O2SAT 96–98; BMI 26.6; BMI 11.0
--- NOTE | 2025-06-06 00:23 | PC.NURSE ---
Dr. Tony notified regarding change in mental status from being alert and oriented to confused trying to get out of bed, thought she was somewhere else, and seeing rats in her room; and Avasure initiated. No new orders at this time.
[2025-06-06] MEDS: ACETAMINOPHEN 325 MG TABLET 650 MG PO (02:45)
[2025-06-06] MEDS: LEVOTHYROXINE SODIUM 100 MCG TABLET PO (05:12)
[2025-06-06 06:45] LABS: Basophils # (Auto) 0.0 Thou/mm3 (0.0-0.2); Basophils % (Auto) 0 % (0-2.5); Eosinophils # (Auto) 0.2 Thou/mm3 (0.0-0.5); Eosinophils % (Auto) 2 % (0-10); Hematocrit 30.4 % (36.0-46.0); Hemoglobin 9.5 g/dL (12.0-16.0); Immature Granulocytes Auto 0.03 Thou/mm3 (0.00-0.00); Lymphocytes # (Auto) 0.7 Thou/mm3 (1.0-4.8); Lymphocytes % (Auto) 8 % (10-50); Mean Corpuscular HGB Conc 31.3 g/dl (31.0-37.0); Mean Corpuscular Hemoglobin 26.1 pg (25.0-35.0); Mean Corpuscular Volume 84 fL (80-100); Monocytes # (Auto) 0.7 Thou/mm3 (0.0-0.8); Monocytes % (Auto) 7 % (0-12); Neutrophils # (Auto) 7.9 Thou/mm3 (1.8-7.7); Neutrophils % (Auto) 83 % (37-80); Nucleated Red Blood Cell # 0.00 Thou/mm3 (0.00-0.00); Nucleated Red Blood Cell % 0 /100 WBC (0); Platelet Count 433 Thou/mm3 (140-440); RDW Standard Deviation 56.1 fL (36.4-46.3); Red Blood Count 3.64 Miln/mm3 (4.00-5.20); White Blood Count 9.5 Thou/mm3 (3.6-11.0)
[2025-06-06 07:07] LABS: Alanine Aminotransferase 12 U/L (10-49); Albumin, Serum 4.4 gm/dL (3.4-4.8); Albumin/Globulin Ratio 1.8 (1.2-2.2); Alkaline Phosphatase 78 U/L (46-116); Anion Gap 14 (7-16); Aspartate Amino Transferase 16 U/L (0-34); BUN/Creatinine Ratio 16 Ratio (12-20); Bilirubin,Total 0.2 mg/dL (0.3-1.2); Blood Urea Nitrogen 11 mg/dL (9-23); Calcium 9.4 mg/dL (8.3-10.6); Calcium (Corrected) 9.4 mg/dL (8.5-10.1); Carbon Dioxide 24.2 mMol/L (20.0-31.0); Chloride 100 mMol/L (98-107); Creatinine (Component) 0.7 mg/dL (0.6-1.3); Estimated Creatinine Clearance 77.8 mL/min (>60); Globulin 2.4 gm/dL (2.3-3.5); Glucose 120 mg/dL (74-106); Magnesium 1.8 mg/dL (1.6-2.6); Osmolality,Calculated 276 (275-295); Potassium 3.8 mMol/L (3.4-5.1); Sodium 138 mMol/L (136-145); Total Protein 6.8 gm/dL (5.7-8.2); eGFR > 60 See Note
[2025-06-06] MEDS: OXYCODONE MYRISTATE 18 MG PO ×2 (07:56→17:38)
[2025-06-06] MEDS: HYDROXYCHLOROQUINE 200 MG TABLET PO ×2 (08:15→20:48)
[2025-06-06] MEDS: METOPROLOL SUCCINATE XL 25 MG TABCR 50 MG PO (08:17)
[2025-06-06] MEDS: AMIODARONE HCL 200 MG TABLET PO ×2 (08:23→20:48)
[2025-06-06] MEDS: APIXABAN 2.5 MG TABLET 5 MG PO ×2 (09:34→20:48)
--- NOTE | 2025-06-06 10:17 | PC.SS ---
Addendum entered by Samara Amato 06/06/25 15:29: SS submitted PASRR to facility. Pending clearance for level 2. SS will attempt to contact [facility] to clear. Addendum entered by Samara Amato 06/06/25 11:38: SS met with patient at bedside to discuss d/c options. Patient states she prefers [facility]. SS spoke to Charlene @ [facility]. [facility] already working on authorziation. Patient ready for d/c once we obtain auth. Original Note: Follow up note: SS submitted inquiry to all facilities. SS spoke to patient and her preference is [facility]. SS contacted facility to update. Patient ready for d/c. Pending authorization
--- NOTE | 2025-06-06 13:03 | ESPR_ITS ---
RE: KEYUR RYDER : 1950 DATE OF SERVICE: 06/06/2025 SUBJECTIVE: Ms. Ryder is feeling somewhat better today. The patient is resting fairly comfortably in bed, though still is complaining of symptoms of some neck pain. Denies any complaints of chest pain. Denies any complaint of skipped beats or palpitations. Denies any complaint of dizziness or diaphoresis. OBJECTIVE: Vital Signs: The patient's blood pressure this morning is 146/68. The pulse rate is 92 per minute and regular. Respiratory rate is 16 per minute. Temperature is 97.4. Oximetry saturation is 97 % on room air. Heart: The heart examination is clear. Lungs: clear to percussion and auscultation. Extremities: No pedal edema is noted. LABORATORY DATA: The patient's lab work today shows WBC count is normal and is 9,500, hemoglobin 9.5 with a hematocrit of 30.4. The patient's BUN today is 11, creatinine 0.7, potassium level is 3.8, glucose is 120. The patient's heart rhythm is staying in normal sinus rhythm. PLAN: The plan to continue the patient on present medication and general supportive care. Cardiac status at the present time is stable. The discharge planning is as per the hospitalist and the patient will be seen for cardiac followup visit in my office as outpatient after discharge. Present medications will be continued. DT: 12:53:39 TT: 13:02:00 Ref: [id number] - TID: [id number]
--- NOTE | 2025-06-06 13:25 | ESPR_ITS ---
<Statement entered by Chris Hebert MD - 06/06/25 13:47> I have reviewed the note and agree with the resident's assessment & plan with exceptions as below. I have personally reviewed labs, imaging, home meds/prior records, examined the patient, formulated and discussed management plan with my attending Patient was seen and examined bedside's morning. No acute overnight events. [facility] therefore will need authorization prior to SNF placement. Patient will need to follow-up with primary care physician for outpatient MRI. Patient states that her neck pain has improved. Will continue amiodarone, metoprolol, Eliquis. Possible discharge in next 24 to 48 hours once SNF placement is available. Chris Hebert PGY2 Disclaimer: Even though this this note was dictated by speech recognition and even though it was carefully revised there may still be minor errors in dental hygiene administrative assistant due to voice recognition software. Documentation for date of: 06/06/25 Subjective Subjective Interval history: Overnight, patient was reported to be sundowning, no interventions. Patient seen examined at bedside. Patient reports improved neck pain and weakness. Denies palpitations, chest pain, shortness of breath or leg swelling. Vitals labs reviewed. SBP 120-145, telemetry reviewed heart rate sinus rhythm 90s hemoglobin stable 9.5, potassium 3.8, repleted with 20 mEq. Pending SNF placement. Continue amiodarone, metoprolol, and Eliquis. Anticipate discharge within the next 24 hours following SNF approval. Exam Vital Signs Temp Pulse Resp BP Pulse Ox O2 Del Method O2 Flow Rate 99.3 F 79 18 119/70 97 Room Air 6 06/06/25 12:00 06/06/25 12:00 06/06/25 12:00 06/06/25 12:00 06/06/25 12:00 06/06/25 12:00 06/03/25 09:37 Narrative Exam GENERAL: AOx3, no acute distress HEENT: mucous membranes moist, bilateral sclera anicteric CARDIOVASCULAR: regular rhythm and rate, S1/S2 present, no murmurs appreciated PULMONARY: clear to auscultation bilaterally, no rales/rhonchi/wheezes ABDOMINAL: soft, non-tender, non-distended, no rebound/guarding, bowel sounds present EXTREMITIES: trace peripheral edema SKIN: warm and dry, intact, no rashes NEURO: CN II-XII grossly intact, no focal deficits, alert, following commands Objective Labs 06/07/25 04:50 06/07/25 04:50 Labs: Laboratory Results - last 24 hr 06/04/25 06/06/25 08:40 06:04 WBC 9.5 RBC 3.64 L Hgb 9.5 L Hct 30.4 L MCV 84 MCH 26.1 MCHC 31.3 RDW Std Deviation 56.1 H Plt Count 433 D Neut % (Auto) 83 H Lymph % (Auto) 8 L [place] % (Auto) 7 Eos % (Auto) 2 Baso % (Auto) 0 Neut # (Auto) 7.9 H Lymph # (Auto) 0.7 L [place] # (Auto) 0.7 Eos # (Auto) 0.2 Baso # (Auto) 0.0 Immature Gran # (Auto) 0.03 H Absolute Nucleated RBC 0.00 Immature Gran % 0 Nucleated RBC % 0 Sodium 138 Potassium 3.8 Chloride 100 Carbon Dioxide 24.2 Anion Gap 14 BUN 11 Creatinine 0.7 Estim Creat Clear Calc 77.8 eGFR > 60 BUN/Creatinine Ratio 16 Glucose 120 H Calculated Osmolality 276 Calcium 9.4 Corrected Calcium 9.4 Magnesium 1.8 Total Bilirubin 0.2 L AST 16 ALT 12 Alkaline Phosphatase 78 Total Protein 6.8 Albumin 4.4 Globulin 2.4 Albumin/Globulin Ratio 1.8 Vitamin B12 174 L ABG Interpretation ABG results: 06/03/25 09:38 ABG pH 7.37 ABG pCO2 41 ABG pO2 90 ABG HCO3 24 ABG O2 Saturation 97 ABG Base Excess -2 Quality Measures Quality Measures none Advance care planning discussed with:: patient Assessment & Plan Assessment Current Active Medications: Generic Name Dose Route Start Last Admin Trade Name Freq PRN Reason Stop Dose Admin Acetaminophen 650 mg 06/03/25 13:54 06/06/25 02:45 Acetaminophen 325 Mg Tablet PO 07/03/25 13:53 650 mg Q6H PRN Administration Fever >101.5 Acetaminophen 650 mg 06/03/25 13:54 Acetaminophen Supp 650 Mg Supp FL 07/03/25 13:53 Q6HR PRN Fever > 100.4 or pain 1-3 Albuterol/Ipratropium 3 ml 06/03/25 14:55 Albuterol/Ipratropium (Duoneb) Rt Deisy 3 Ml Nebu INH 07/03/25 14:54 Q2HR PRN SHORTNESS OF BREATH OR WHEEZE Amiodarone HCl 200 mg 06/04/25 21:00 06/06/25 08:23 Amiodarone Hcl 200 Mg Tablet PO 07/04/25 20:59 200 mg BID THANH Administration Apixaban 5 mg 06/03/25 21:00 06/06/25 09:34 Apixaban 2.5 Mg Tablet PO 07/03/25 20:59 5 mg BID THANH Administration Buspirone HCl 15 mg 06/04/25 09:00 06/06/25 08:16 Buspirone Hcl 5 Mg Tablet PO 07/04/25 08:59 15 mg QDAY THANH Administration (Oxycodone Myristate 0 ea 06/04/25 08:00 06/06/25 07:56 [Xtampza Er] 18 Mg PO 07/04/25 07:59 1 capsule Cap,Sprinkle BIDWM THANH Administration Cyclobenzaprine HCl 10 mg 06/03/25 15:00 06/06/25 08:16 Cyclobenzaprine 5 Mg Tablet PO 07/03/25 14:59 10 mg QDAY THANH Administration Dextrose 25 ml 06/03/25 14:53 Dextrose 50%-Water Inj 50 Ml Syringe IV 07/03/25 14:52 Q15MIN PRN BG 50-70 responsive npo pt Dextrose 50 ml 06/03/25 14:53 Dextrose 50%-Water Inj 50 Ml Syringe IV 07/03/25 14:52 Q15MIN PRN BG <50 OR BG <70 & pt unresponsive Fluoxetine HCl 10 mg 06/04/25 09:00 06/06/25 08:16 Fluoxetine Hcl 10 Mg Capsule PO 07/04/25 08:59 10 mg QDAY THANH Administration Glucagon 1 mg 06/03/25 14:53 Glucagon Inj 1 Mg Vial IM Q15MIN PRN BG <70, and no IV access Hydroxychloroquine Sulfate 200 mg 06/03/25 21:00 06/06/25 08:15 Hydroxychloroquine 200 Mg Tablet PO 06/10/25 20:59 200 mg BID THANH Administration Insulin Human Lispro 0 unit 06/03/25 17:00 06/06/25 07:56 Insulin Lispro (Admelog) 1 Unit/0.01 Ml Unit SC 07/03/25 16:59 Not Given AC THANH Protocol Levothyroxine Sodium 100 mcg 06/04/25 06:00 06/06/25 05:12 Levothyroxine Sodium 100 Mcg Tablet PO 07/04/25 05:59 100 mcg ACBR THANH Administration Metoprolol Succinate 50 mg 06/04/25 09:00 06/06/25 08:17 Metoprolol Succinate Xl 25 Mg Tabcr PO 07/04/25 08:59 50 mg QDAY THANH Administration Sennosides 1 tab 06/03/25 13:54 06/05/25 05:29 Senna Tablet PO 07/03/25 13:53 1 tab QDAY PRN Administration constipation Protocol Zolpidem Tartrate 5 mg 06/05/25 17:45 06/05/25 21:34 Zolpidem 5 Mg Tablet PO 07/05/25 17:44 5 mg HS PRN Administration INSOMNIA Plan Bhavna Ryder 74F pmhx significant for NIDDM2, HTN, atrial fibrillation, mitral valve prolapse, breast CA s/p excision and radiation and SLE who presents with one week of gradual weakness and confusion, admitted for management of afib RVR and encephalopathy secondary to starvation ketosis. #Acute Encephalopathy- resolved #Starvation ketosis- resolved Presents with one week of worsening confusion and generalized weakness. Endorses poor PO intake and recent episodes of hypoglycemia. Last BM 1 week ago. AOx3 in ED. WBC 12.5 and anion gap 19. Electrolytes wnl. BHB 4.7. Initially thought to have UTI, however, UCx negative and possible contamination. Ddx: metabolic (HAGMA, elevated lactic vs beta hydroxy as patient has hx of DKA) vs infectios (UTI) vs polypharmacy (taking extra Xtampza due to exacerbation of back pain and neck pain, zolpidem) vs hypoglycemia Ceftriaxone (06/03-06/05) Plan: - Avoid sedating agents - PT ordered: recommend SNF #Atrial fibrillation RVR, resolved #Hx atrial fibrillation on Eliquis #HFpEF (50-55%) Presented with atrial fibrillation RVR with hx of afib already on Eliquis and metoprolol XL 50 QD, unknown chronicity or paroxysmal vs chronic. EKG shows SVT rate 152 QTc 474. Questionable hx of CHF but patient reports taking lasix for CHF. Previously saw Dr. Tash. s/p IV dilt x1 in ED without conversion. 06/03 TTE mild LVH with normal LV size and function, EF 50 to 55%. Normal RV size and function, AV sclerosis without stenosis, mild MR and mild TR Likely 2/2 underlying cause of encephalopathy. Plan: - PO amiodarone, 200 mg twice daily - Continue home metoprolol XL 50 mg QD - Telemetry for monitoring - Keep K>4 and Mg>2 at all times - Cardiology consulted, recs appreciated #IDDM2 Previously on Lantus 30u, however over the past few months, has had hypoglycemic episodes and has not been taking insulin. Still taking metformin. A1c 6.0. Trig 70, cholesterol 117, LDL 50, HDL 53. Plan: - SSI #Chronic back pain #Neck pain, improved New muscular neck pain for the past week and exacerbation of chronic back pain. Xtampza ER 13.5 BID for years and cyclobenzaprine 10 mg QD. Denies light sensitivity or neck rigidity. Does have muscular pain when turning head and TTP to cervical paraspinal muscles.ke Plan: - Instructed to bring home Xtampza ER 13.5 mg BID - Home cyclobenzaprine 10 mg BID #SLE #Depression #Hypothyroidism #Asthma Does not appear to be in SLE flare, denies myalgias, joint pain, excessive fatigue. Chronic medical conditions nonpertinent to the following presentation Plan: - Continue home hydroxychloroquine 200 mg BID, levothyroxine 100 mcg acbr - Duoneb q2h prn Hospital management: Lines: PIV Diet: carb consistent low Bowel: Senna GI prophylaxis: not indicated DVT prophylaxis: Eliquis 5 mg BID Disposition: tele, pending SNF CODE STATUS: FULL CODE Plan of care discussed with attending Dr. Driver and PGY-2 Dr. Rojas. Fara Ruvalcaba DO Internal Medicine PGY-1 Attending Provider Attestation/Addendum Gianna Reyes DO, attest that I was physically present for the kelly portions of the service and evaluated the patient with the resident and I reviewed and discussed the case with the resident and agree with the resident's findings and plans of care as documented above Patient seen and evaluated this AM. Patient has opted to be discharged to SNF due to generalized weakness. She reports improvement in her neck pain. Advised patient to have MRI done outpatient and f/u with PCP if the neck pain worsens. She otherwise has no focal neurological deficits, numbness or tingling in her b/l UE and LE, saddle anesthesia, bowel/ bladder incontinence. Patient is stable for discharge at this time.
[2025-06-07] VITALS (9 sets, daily range): BP systolic 116–154; BP diastolic 73–88; PULSE 78–96; RESP 14–17; TEMP 36.1–37.7; O2SAT 94–98; BMI 27.6
[2025-06-07] MEDS: ZOLPIDEM 5 MG TABLET PO ×2 (00:58→20:38)
[2025-06-07] MEDS: LEVOTHYROXINE SODIUM 100 MCG TABLET PO (05:17)
[2025-06-07 05:49] LABS: Basophils # (Auto) 0.0 Thou/mm3 (0.0-0.2); Basophils % (Auto) 1 % (0-2.5); Eosinophils # (Auto) 0.4 Thou/mm3 (0.0-0.5); Eosinophils % (Auto) 4 % (0-10); Hematocrit 29.3 % (36.0-46.0); Hemoglobin 9.5 g/dL (12.0-16.0); Immature Granulocytes Auto 0.05 Thou/mm3 (0.00-0.00); Lymphocytes # (Auto) 1.3 Thou/mm3 (1.0-4.8); Lymphocytes % (Auto) 15 % (10-50); Mean Corpuscular HGB Conc 32.4 g/dl (31.0-37.0); Mean Corpuscular Hemoglobin 27.1 pg (25.0-35.0); Mean Corpuscular Volume 84 fL (80-100); Monocytes # (Auto) 0.7 Thou/mm3 (0.0-0.8); Monocytes % (Auto) 8 % (0-12); Neutrophils # (Auto) 6.3 Thou/mm3 (1.8-7.7); Neutrophils % (Auto) 72 % (37-80); Nucleated Red Blood Cell # 0.00 Thou/mm3 (0.00-0.00); Nucleated Red Blood Cell % 0 /100 WBC (0); Platelet Count 507 Thou/mm3 (140-440); RDW Standard Deviation 56.6 fL (36.4-46.3); Red Blood Count 3.51 Miln/mm3 (4.00-5.20); White Blood Count 8.8 Thou/mm3 (3.6-11.0)
[2025-06-07 06:10] LABS: Alanine Aminotransferase 12 U/L (10-49); Albumin, Serum 4.3 gm/dL (3.4-4.8); Albumin/Globulin Ratio 2.0 (1.2-2.2); Alkaline Phosphatase 76 U/L (46-116); Anion Gap 13 (7-16); Aspartate Amino Transferase 14 U/L (0-34); BUN/Creatinine Ratio 20 Ratio (12-20); Bilirubin,Total 0.2 mg/dL (0.3-1.2); Blood Urea Nitrogen 14 mg/dL (9-23); Calcium 9.4 mg/dL (8.3-10.6); Calcium (Corrected) 9.4 mg/dL (8.5-10.1); Carbon Dioxide 25.0 mMol/L (20.0-31.0); Chloride 99 mMol/L (98-107); Creatinine (Component) 0.7 mg/dL (0.6-1.3); Estimated Creatinine Clearance 79.0 mL/min (>60); Globulin 2.2 gm/dL (2.3-3.5); Glucose 133 mg/dL (74-106); Magnesium 2.0 mg/dL (1.6-2.6); Osmolality,Calculated 276 (275-295); Potassium 4.3 mMol/L (3.4-5.1); Sodium 137 mMol/L (136-145); Total Protein 6.5 gm/dL (5.7-8.2); eGFR > 60 See Note
[2025-06-07] MEDS: INSULIN LISPRO (AdmeLOG) 1 UNIT/0.01 ML UNIT SC (07:27)
[2025-06-07] MEDS: OXYCODONE MYRISTATE 18 MG PO ×2 (07:48→17:28)
[2025-06-07] MEDS: METOPROLOL SUCCINATE XL 25 MG TABCR 50 MG PO (08:25)
[2025-06-07] MEDS: AMIODARONE HCL 200 MG TABLET PO ×2 (08:27→20:37)
[2025-06-07] MEDS: HYDROXYCHLOROQUINE 200 MG TABLET PO ×2 (08:28→20:38)
[2025-06-07] MEDS: POLYETHYLENE GLYCOL 17 GM PACKET PO (09:50)
[2025-06-07] MEDS: APIXABAN 2.5 MG TABLET 5 MG PO ×2 (09:50→20:37)
--- NOTE | 2025-06-07 09:51 | PC.SS ---
follow up note: SS received call from Shlomo @ [facility] and he was able to clear patient for level 2. Mehdi needs this [facility] to obtain insurance authorization. Patient ready for d/c once they receive auth.
--- NOTE | 2025-06-07 10:13 | ESDS_ITS ---
<Statement entered by Gianna Driver DO - 06/08/25 08:07> I, Gianna Driver DO, attest that I was physically present for the kelly portions of the service and evaluated the patient with the resident and I reviewed and discussed the case with the resident and agree with the resident's findings and plans of care as documented above Planned Discharge Date 06/07/25 DS: Providers Provider Date of admission: 06/03/25 13:53 Primary care physician: Kady Puga MD Admitting Provider: Gianna Driver DO Attending Provider on Admission: Gianna Driver DO Consults: 06/03/25 14:07 Consult to Cardiology Routine Comment: Consulting Provider: Oral Bianchi 06/05/25 10:22 Referral Physical Therapy Routine Comment: Physician Instructions: Attending Provider on DC: Gianna Driver DO Discharging Provider: Gianna Driver DO DS: Diagnosis Problem List Completed Was Problem List Reviewed/Reconciled?: Yes Hospital Course Hospital Course Hospital course: Summary: Bhavna Ryder 74F pmhx significant for NIDDM2, HTN, atrial fibrillation, mitral valve prolapse, breast CA s/p excision and radiation and SLE who presents with one week of gradual weakness and confusion, admitted for management of afib RVR and encephalopathy secondary to starvation ketosis. Patient presents with one week of worsening confusion and generalized weakness. Endorses poor PO intake and recent episodes of hypoglycemia, now off insulin. Last BM 1 week prior to admission. In ED patient AOx3, WBC 12.5 and anion gap 19, electrolytes wnl, BHB 4.7, diagnosed with starvation ketosis due to poor intake from exacerbation of chronic pain. On admission, patient was also found to be in atrial fibrillation RVR, controlled with amiodarone. Initially thought to have UTI as UA indicated infection and treated with 3 days of abx, however, UCx negative and likely contamination. Patient's pain was controlled with medication, and encephalopathy resolved. On discharge, patient is hemodynamically stable, vitals and labs reviewed and patient is ready to be discharged to SNF. Imaging: Head CT negative for acute hemorrhage, mass effect or midline shift CXR basilar bronchitis pattern 06/03 TTE mild LVH with normal LV size and function, EF 50 to 55%. Normal RV size and function, AV sclerosis without stenosis, mild MR and mild TR Discharge Recommendations: - Please take all medications as prescribed - START amiodarone 200 mg twice daily for atrial fibrillation - Take cyclobenzaprine as needed for pain - Suggest outpatient MRI if cervical pain worsens - Continue all home medications except as above - Please follow up with your PCP within one week of discharge - Please follow up with your cardiology within one week of discharge - If your symptoms worsen, please seek immediate medical attention and return to your nearest emergency room. - If you do not have a PCP, you may follow up at the [facility] at [address] [place] [address] [address], [facility] [id number], Hospital Diagnoses: #Acute Encephalopathy- resolved #Starvation ketosis- resolved #Atrial fibrillation RVR, resolved #Hx atrial fibrillation on Eliquis #HFpEF (50-55%) #IDDM2 #Chronic back pain #Neck pain, improved #SLE #Depression #Hypothyroidism #Asthma Plan of care discussed with attending Dr. Driver, and PGY-3 Dr. Richardson. Fara Ruvalcaba, DO Internal Medicine, PGY-1 Senior resident attestation: Patient evaluated and examined at the bedside, plan of care discussed with rest of the team including my attending physician, except as noted. Patient is a 72-year-old female with a past medical history of diabetes mellitus, SLE, A-fib on Eliquis, HTN, reported history of CHF ? Followed by Dr. Bianchi in the past, but due to insurance issues is switching [employer] to Dr. Moreira, chronic back pain, chronic cervical pain who presented to the ER due to altered mental status. Patient takes Xtampza for pain, reported she took an extra dose yesterday as the pain in her back and neck was getting worse. Patient's son found her to be confused and brought her to the emergency room. Acute encephalopathy likely secondary to medication use, slowly improving. Concern for UTI initially based on urinalysis, likely contaminated sample. Antibiotics were later discontinued. #A-fib RVR?initially on amiodarone drip, c later transitioned to p.o. 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 Bianchi, appreciate recs. Echocardiogram shows mild LVH, EF 50 to 55%, normal LV size and function, normal LV cavity size and function, aortic sclerosis, mild MR and TR. #Acute encephalopathy?now resolved, likely toxic in the setting of medication overdose, now resolving, A&O x 3, GCS 15 of 15. At the time of discharge, patient back to her baseline mental #History of diabetes mellitus?concern for recurrent hypoglycemic episodes, reported taking 4 units of insulin at home, will continue hypoglycemic medications. #Concern for starvation ketosis?DKA ruled out, positive BHB, labs improved after IV D5 fluids. Slowly acute encephalopathy resolved and patient back to baseline mental status and taking p.o. m diet. Debra PGY3 Time Spent with Patient Time attestation: Total time spent providing and/or coordinating discharge services: Time spent: Less than 30 minutes Home Health Home Health Referral Orders: 06/06/25 09:06 Home Health Referral Routine Reason For Exam: afib with rvr Home-Bound The patient must either because of illness or injury, need the aid of supportive devices such as crutches, canes, wheelchairs, and walkers; the use of special transportation; or the assistance of another person in order to leave their place of residence; OR have a condition such that leaving his or her home is medically contraindicated. In addition, the patient also meets the following criteria: patient is normally unable to leave the home and leaving home requires considerable taxing effort. Addendum to Home Health Certification Practitioner's Certification: I certify that the patient has been under my care in the hospital and the care of attending physician (see below). We had a [id number] encounter on (see date below). My clinical findings indicate that the patient is home bound per the above criteria and the Home Health Services noted in these orders are medically necessary. The primary reason for the yovi-uw-[id number] encounter is related to the fact that the patient requires home health services. Date Certifying Ruck-iu-Jqzd Physician Encounter: 06/03/25 Physician's Name who will Assume Oversight for Services: Kady Puga Physician's Phone No.who will Assume Oversight for Service: [facility] - Community Resources: No PT to Evaluate: Yes PT to evaluate and provide a treatmnet plan to increase patient's mobility and strength. Wound Care: No IV Therapy: No RN Safety Evaluation: Yes RN to evaluate and create a plan of care that will produce positive outcomes. Palliative Treatment: No Palliative treatment and evaluate the need for hospice. Home Health Aide - Personal Care: Yes Home Health Aide to assist with any ADL's. Exam Vital Signs Temp Pulse Resp BP Pulse Ox O2 Del Method O2 Flow Rate 98.4 F 96 17 148/88 H 98 Room Air 6 06/07/25 08:00 06/07/25 08:27 06/07/25 08:00 06/07/25 08:27 06/07/25 08:00 06/07/25 08:00 06/03/25 09:37 Narrative Exam GENERAL: AOx3, no acute distress HEENT: mucous membranes moist, bilateral sclera anicteric CARDIOVASCULAR: regular rhythm and rate, S1/S2 present, no murmurs appreciated PULMONARY: clear to auscultation bilaterally, no rales/rhonchi/wheezes ABDOMINAL: soft, non-tender, non-distended, no rebound/guarding, bowel sounds present EXTREMITIES: trace peripheral edema SKIN: warm and dry, intact, no rashes NEURO: CN II-XII grossly intact, no focal deficits, alert, following commands Discharge Plan Plan Patient Disposition: Home w/HOME HEALTH Patient condition on transfer: Stable Care Plan Goals: Please follow-up with primary care physician within 3 days upon discharge Please follow-up with your white goods appliance tech within 7 days upon discharge Would recommend outpatient MRI if cervical pain worsens. F/u with your pcp You have been started on amiodarone 200 mg twice daily Please continue all the home medications as prescribed Please come back to the ER if symptoms persist or worsen Prescriptions/Referrals Prescriptions/Med Rec: New amiodarone [Pacerone] 200 mg Tablet 200 mg PO BID 30 Days Qty: 60 0RF Continued gabapentin 300 mg capsule 300 mg PO BID metformin 1,000 mg tablet 1,000 mg PO BID hydroxychloroquine 200 mg tablet 200 mg PO BID zolpidem 10 mg tablet 10 mg PO QDAY PRN (Reason: Insomnia) Patient Comments: TAKE 1 TABLET BY MOUTH EVERY DAY AT BEDTIME NEEDED buspirone 15 mg tablet 15 mg PO QDAY Eliquis 5 mg tablet 5 mg PO BID Patient Comments: TAKE 1 TABLET BY MOUTH TWICE DAILY Xtampza ER 13.5 mg cap,sprinkl,ER12hr(DONT CRUSH) 13.5 mg PO BIDWM levothyroxine 100 mcg Tablet 100 mcg PO ACBR Qty: 30 0RF metoprolol succinate 25 mg Tablet Extended Release 24 Hr 50 mg PO QDAY Qty: 60 0RF insulin glargine [Lantus Solostar U-100 Insulin] 100 unit/mL (3 mL) insulin pen 10 unit subcut QDAY Changed cyclobenzaprine 10 mg tablet 10 mg PO BID PRN (Reason: spasticity) Qty: 10 0RF Patient Comments: TAKE 1 TABLET BY MOUTH THREE TIMES DAILY Referrals: Oral Bianchi MD [Physician, Cardiology] Kady Puga MD [Primary Care Provider] Patient/Caregiver Discharge Instructions Other Discharge Activity Instructions:: Please follow-up with primary care physician within 3 days upon discharge Please follow-up with your white goods appliance tech within 7 days upon discharge Would recommend outpatient MRI due to cervical pain if worsens and PCP to order. You have been started on amiodarone 200 mg twice daily Please continue all the home medications as prescribed Please come back to the ER if symptoms persist or worsen Education Materials: AFL/Afib Print Language: Slovak Stand Alone Forms: Josee Award Info., Patient Portal Info Letter Discharge Order Discharge Orders: Discharge (Routine); Ordered 06/07/25 Ordered By: Chris Hebert Quality Discharge Quality Measures VTE prophylaxis
--- NOTE | 2025-06-07 11:56 | PC.CM ---
I received a referral for home health. I reviewed notes and I see social work faculty member is working on a discharge for SNF. I spoke to Jitendra and he states patient should be going to SNF once auth received. I will follow patient to see if they change and go home with home health.
--- NOTE | 2025-06-07 16:01 | PC.SS ---
[facility] informed by [facility] staff, Heidi; that necessary documentation has been submitted for authorization. Response remains pending. [facility] will update [facility] once response provided.
[2025-06-08] VITALS (9 sets, daily range): BP systolic 116–141; BP diastolic 64–90; PULSE 73–91; RESP 12–18; TEMP 36.1–37.7; O2SAT 94–98; BMI 27.6
--- NOTE | 2025-06-08 03:08 | PC.NURSE ---
[employer] downtime occurred on <06/08> from <0200> to <0300>.
[2025-06-08] MEDS: LEVOTHYROXINE SODIUM 100 MCG TABLET PO (05:17)
[2025-06-08 05:22] LABS: Basophils # (Auto) 0.0 Thou/mm3 (0.0-0.2); Basophils % (Auto) 1 % (0-2.5); Eosinophils # (Auto) 0.3 Thou/mm3 (0.0-0.5); Eosinophils % (Auto) 4 % (0-10); Hematocrit 29.7 % (36.0-46.0); Hemoglobin 9.3 g/dL (12.0-16.0); Immature Granulocytes Auto 0.06 Thou/mm3 (0.00-0.00); Lymphocytes # (Auto) 1.4 Thou/mm3 (1.0-4.8); Lymphocytes % (Auto) 19 % (10-50); Mean Corpuscular HGB Conc 31.3 g/dl (31.0-37.0); Mean Corpuscular Hemoglobin 26.3 pg (25.0-35.0); Mean Corpuscular Volume 84 fL (80-100); Monocytes # (Auto) 0.8 Thou/mm3 (0.0-0.8); Monocytes % (Auto) 10 % (0-12); Neutrophils # (Auto) 4.8 Thou/mm3 (1.8-7.7); Neutrophils % (Auto) 65 % (37-80); Nucleated Red Blood Cell # 0.00 Thou/mm3 (0.00-0.00); Nucleated Red Blood Cell % 0 /100 WBC (0); Platelet Count 551 Thou/mm3 (140-440); RDW Standard Deviation 56.8 fL (36.4-46.3); Red Blood Count 3.53 Miln/mm3 (4.00-5.20); White Blood Count 7.4 Thou/mm3 (3.6-11.0)
[2025-06-08 06:04] LABS: Alanine Aminotransferase 11 U/L (10-49); Albumin, Serum 4.3 gm/dL (3.4-4.8); Albumin/Globulin Ratio 2.0 (1.2-2.2); Alkaline Phosphatase 74 U/L (46-116); Anion Gap 15 (7-16); Aspartate Amino Transferase 15 U/L (0-34); BUN/Creatinine Ratio 23 Ratio (12-20); Bilirubin,Total 0.2 mg/dL (0.3-1.2); Blood Urea Nitrogen 16 mg/dL (9-23); Calcium 9.2 mg/dL (8.3-10.6); Calcium (Corrected) 9.2 mg/dL (8.5-10.1); Carbon Dioxide 24.0 mMol/L (20.0-31.0); Chloride 98 mMol/L (98-107); Creatinine (Component) 0.7 mg/dL (0.6-1.3); Estimated Creatinine Clearance 79.0 mL/min (>60); Globulin 2.2 gm/dL (2.3-3.5); Glucose 129 mg/dL (74-106); Magnesium 2.0 mg/dL (1.6-2.6); Osmolality,Calculated 277 (275-295); Potassium 4.2 mMol/L (3.4-5.1); Sodium 137 mMol/L (136-145); Total Protein 6.5 gm/dL (5.7-8.2); eGFR > 60 See Note
[2025-06-08] MEDS: METOPROLOL SUCCINATE XL 25 MG TABCR 50 MG PO (09:21)
[2025-06-08] MEDS: APIXABAN 2.5 MG TABLET 5 MG PO ×2 (09:22→20:29)
[2025-06-08] MEDS: AMIODARONE HCL 200 MG TABLET PO ×2 (09:23→20:29)
[2025-06-08] MEDS: HYDROXYCHLOROQUINE 200 MG TABLET PO ×2 (09:23→20:29)
[2025-06-08] MEDS: OXYCODONE MYRISTATE 18 MG PO ×2 (09:35→18:21)
--- NOTE | 2025-06-08 12:47 | PD.RESPRO ---
Documentation for date of: 06/07/25 Senior resident attestation: Patient evaluated and examined at the bedside, plan of care discussed with rest of the team including my attending physician, except as noted. Patient is a 72-year-old female with a past medical history of diabetes mellitus, SLE, A-fib on Eliquis, HTN, reported history of CHF ? Followed by Dr. 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 Patient takes Xtampza for pain, reported she took an extra dose yesterday as the pain in her back and neck was getting worse. Patient's son found her to be confused and brought her to the emergency room. Acute encephalopathy likely secondary to medication use, slowly improving. Concern for UTI initially based on urinalysis, likely contaminated sample. Antibiotics were later discontinued. #Neck pain?the patient was also complaining of pain in her neck and stiffness, she has chronic pain neck possibly due to cervical spondylosis/osteoarthritis. Resume patient's home medications including Flexeril, symptoms improved, is able to move her neck without discomfort, will recommend MRI on outpatient basis and following up with primary care physician. #A-fib RVR?rate controlled on p.o. amiodarone 200 mg twice daily, continue Eliquis, consulted matrix bath attendant Dr. Bianchi, appreciate recs. Echocardiogram shows mild LVH, EF 50 to 55%, normal LV size and function, normal LV cavity size and function, aortic sclerosis, mild MR and TR. #Acute encephalopathy?now resolved, likely toxic in the setting of medication overdose, now resolving, A&O x 3, GCS 15 of 15. At the time of discharge, patient back to her baseline mental status #History of diabetes mellitus?concern for recurrent hypoglycemic episodes, reported taking 4 units of insulin at home, will continue hypoglycemic medications. #Starvation ketosis?DKA ruled out, positive BHB, labs improved after IV D5 fluids. Slowly acute encephalopathy resolved and patient back to baseline mental status and taking p.o. diet. Quresh PGY3 Subjective Subjective Interval history: No acute overnight events. Patient seen examined at bedside. Patient reports chronic neck pain slightly worse today however relieved by pain medication. No new complaints. Vitals and labs reviewed, stable. Pending SNF placement. Exam Vital Signs Temp Pulse Resp BP Pulse Ox O2 Del Method O2 Flow Rate 97.0 F 73 18 131/90 H 95 Room Air 6 06/08/25 12:00 06/08/25 12:00 06/08/25 12:00 06/08/25 12:00 06/08/25 12:00 06/08/25 12:00 06/03/25 09:37 Narrative Exam GENERAL: AOx3, no acute distress, sitting up comfortably HEENT: mucous membranes moist, bilateral sclera anicteric CARDIOVASCULAR: regular rhythm and rate, S1/S2 present, no murmurs appreciated PULMONARY: clear to auscultation bilaterally, no rales/rhonchi/wheezes ABDOMINAL: soft, non-tender, non-distended, no rebound/guarding, bowel sounds present EXTREMITIES: trace peripheral edema SKIN: warm and dry, intact, no rashes NEURO: CN II-XII grossly intact, no focal deficits, alert, following commands Objective Labs 06/08/25 04:37 06/08/25 04:37 Labs: Laboratory Results - last 24 hr 06/08/25 04:37 WBC 7.4 RBC 3.53 L Hgb 9.3 L Hct 29.7 L MCV 84 MCH 26.3 MCHC 31.3 RDW Std Deviation 56.8 H Plt Count 551 H D Neut % (Auto) 65 Lymph % (Auto) 19 [place] % (Auto) 10 Eos % (Auto) 4 Baso % (Auto) 1 Neut # (Auto) 4.8 Lymph # (Auto) 1.4 [place] # (Auto) 0.8 Eos # (Auto) 0.3 Baso # (Auto) 0.0 Immature Gran # (Auto) 0.06 H Absolute Nucleated RBC 0.00 Immature Gran % 1 H Nucleated RBC % 0 Sodium 137 Potassium 4.2 Chloride 98 Carbon Dioxide 24.0 Anion Gap 15 BUN 16 Creatinine 0.7 Estim Creat Clear Calc 79.0 eGFR > 60 BUN/Creatinine Ratio 23 H Glucose 129 H Calculated Osmolality 277 Calcium 9.2 Corrected Calcium 9.2 Magnesium 2.0 Total Bilirubin 0.2 L AST 15 ALT 11 Alkaline Phosphatase 74 Total Protein 6.5 Albumin 4.3 Globulin 2.2 L Albumin/Globulin Ratio 2.0 ABG Interpretation ABG results: 06/03/25 09:38 ABG pH 7.37 ABG pCO2 41 ABG pO2 90 ABG HCO3 24 ABG O2 Saturation 97 ABG Base Excess -2 Quality Measures Quality Measures VTE prophylaxis Advance care planning discussed with:: patient Assessment & Plan Assessment Current Active Medications: Generic Name Dose Route Start Last Admin Trade Name Freq PRN Reason Stop Dose Admin Acetaminophen 650 mg 06/03/25 13:54 06/06/25 02:45 Acetaminophen 325 Mg Tablet PO 07/03/25 13:53 650 mg Q6H PRN Administration Fever >101.5 Acetaminophen 650 mg 06/03/25 13:54 Acetaminophen Supp 650 Mg Supp ID 07/03/25 13:53 Q6HR PRN Fever > 100.4 or pain 1-3 Albuterol/Ipratropium 3 ml 06/03/25 14:55 Albuterol/Ipratropium (Duoneb) Rt Deisy 3 Ml Nebu INH 07/03/25 14:54 Q2HR PRN SHORTNESS OF BREATH OR WHEEZE Amiodarone HCl 200 mg 06/04/25 21:00 06/08/25 09:23 Amiodarone Hcl 200 Mg Tablet PO 07/04/25 20:59 200 mg BID THANH Administration Apixaban 5 mg 06/03/25 21:00 06/08/25 09:22 Apixaban 2.5 Mg Tablet PO 07/03/25 20:59 5 mg BID THANH Administration Buspirone HCl 15 mg 06/04/25 09:00 06/08/25 09:22 Buspirone Hcl 5 Mg Tablet PO 07/04/25 08:59 15 mg QDAY THANH Administration (Oxycodone Myristate 0 ea 06/04/25 08:00 06/08/25 09:35 [Xtampza Er] 18 Mg PO 07/04/25 07:59 1 capsule Cap,Sprinkle BIDWM THANH Administration Cyclobenzaprine HCl 10 mg 06/03/25 15:00 06/08/25 09:22 Cyclobenzaprine 5 Mg Tablet PO 07/03/25 14:59 10 mg QDAY THANH Administration Dextrose 25 ml 06/03/25 14:53 Dextrose 50%-Water Inj 50 Ml Syringe IV 07/03/25 14:52 Q15MIN PRN BG 50-70 responsive npo pt Dextrose 50 ml 06/03/25 14:53 Dextrose 50%-Water Inj 50 Ml Syringe IV 07/03/25 14:52 Q15MIN PRN BG <50 OR BG <70 & pt unresponsive Fluoxetine HCl 10 mg 06/04/25 09:00 06/08/25 09:23 Fluoxetine Hcl 10 Mg Capsule PO 07/04/25 08:59 10 mg QDAY THANH Administration Glucagon 1 mg 06/03/25 14:53 Glucagon Inj 1 Mg Vial IM Q15MIN PRN BG <70, and no IV access Hydroxychloroquine Sulfate 200 mg 06/03/25 21:00 06/08/25 09:23 Hydroxychloroquine 200 Mg Tablet PO 06/10/25 20:59 200 mg BID THANH Administration Insulin Human Lispro 0 unit 06/03/25 17:00 06/08/25 12:19 Insulin Lispro (Admelog) 1 Unit/0.01 Ml Unit SC 07/03/25 16:59 Not Given AC THANH Protocol Levothyroxine Sodium 100 mcg 06/04/25 06:00 06/08/25 05:17 Levothyroxine Sodium 100 Mcg Tablet PO 07/04/25 05:59 100 mcg ACBR THANH Administration Metoprolol Succinate 50 mg 06/04/25 09:00 06/08/25 09:21 Metoprolol Succinate Xl 25 Mg Tabcr PO 07/04/25 08:59 50 mg QDAY THANH Administration Sennosides 1 tab 06/03/25 13:54 06/05/25 05:29 Senna Tablet PO 07/03/25 13:53 1 tab QDAY PRN Administration constipation Protocol Zolpidem Tartrate 5 mg 06/05/25 17:45 06/07/25 20:38 Zolpidem 5 Mg Tablet PO 07/05/25 17:44 5 mg HS PRN Administration INSOMNIA Plan Bhavna Ryder 74F pmhx significant for NIDDM2, HTN, atrial fibrillation, mitral valve prolapse, breast CA s/p excision and radiation and SLE who presents with one week of gradual weakness and confusion, admitted for management of afib RVR and encephalopathy secondary to starvation ketosis. #Acute Encephalopathy- resolved #Starvation ketosis- resolved Presents with one week of worsening confusion and generalized weakness. Endorses poor PO intake and recent episodes of hypoglycemia. Last BM 1 week ago. AOx3 in ED. WBC 12.5 and anion gap 19. Electrolytes wnl. BHB 4.7. Initially thought to have UTI, however, UCx negative and possible contamination. Ddx: metabolic (HAGMA, elevated lactic vs beta hydroxy as patient has hx of DKA) vs infectios (UTI) vs polypharmacy (taking extra Xtampza due to exacerbation of back pain and neck pain, zolpidem) vs hypoglycemia Ceftriaxone (06/03-06/05) Plan: - PT ordered: recommend SNF #Atrial fibrillation RVR, resolved #Hx atrial fibrillation on Eliquis #HFpEF (50-55%) Presented with atrial fibrillation RVR with hx of afib already on Eliquis and metoprolol XL 50 QD, unknown chronicity or paroxysmal vs chronic. EKG shows SVT rate 152 QTc 474. Questionable hx of CHF but patient reports taking lasix for CHF. Previously saw Dr. Bianchi. s/p IV dilt x1 in ED without conversion. 06/03 TTE mild LVH with normal LV size and function, EF 50 to 55%. Normal RV size and function, AV sclerosis without stenosis, mild MR and mild TR Likely 2/2 underlying cause of encephalopathy. Plan: - PO amiodarone, 200 mg twice daily - Continue home metoprolol XL 50 mg QD - Telemetry for monitoring - Keep K>4 and Mg>2 at all times - Cardiology consulted, recs appreciated #IDDM2 Previously on Lantus 30u, however over the past few months, has had hypoglycemic episodes and has not been taking insulin. Still taking metformin. A1c 6.0. Trig 70, cholesterol 117, LDL 50, HDL 53. Plan: - SSI #Chronic back pain #Neck pain, improved New muscular neck pain for the past week and exacerbation of chronic back pain. Xtampza ER 13.5 BID for years and cyclobenzaprine 10 mg QD. Denies light sensitivity or neck rigidity. Does have muscular pain when turning head and TTP to cervical paraspinal muscles.ke Plan: - Instructed to bring home Xtampza ER 13.5 mg BID - Home cyclobenzaprine 10 mg BID #SLE #Depression #Hypothyroidism #Asthma Does not appear to be in SLE flare, denies myalgias, joint pain, excessive fatigue. Chronic medical conditions nonpertinent to the following presentation Plan: - Continue home hydroxychloroquine 200 mg BID, levothyroxine 100 mcg acbr - Duoneb q2h prn Hospital management: Lines: PIV Diet: carb consistent low Bowel: Senna GI prophylaxis: not indicated DVT prophylaxis: Eliquis 5 mg BID Disposition: tele, pending SNF CODE STATUS: FULL CODE Plan of care discussed with attending Dr. Driver and PGY-3 Dr. Richardson. Fara Ruvalcaba DO Internal Medicine PGY-1 Attending Provider Attestation/Addendum IGianna DO, attest that I was physically present for the kelly portions of the service and evaluated the patient with the resident and I reviewed and discussed the case with the resident and agree with the resident's findings and plans of care as documented above Patient seen and evaluated this AM. No acute events overnight. Patient states she is feeling well. She denies any pain and reports improvement of neck discomfort. Pending snf authorization.
--- NOTE | 2025-06-08 13:22 | PC.SS ---
follow up note: SS followed up with prior autn. Pending still. SS will folllow up with insurance co.
--- NOTE | 2025-06-08 15:00 | PD.RESPRO ---
Documentation for date of: 06/08/25 Senior resident attestation: Patient evaluated and examined at the bedside, plan of care discussed with rest of the team including my attending physician, except as noted. Patient is a 72-year-old female with a past medical history of diabetes mellitus, SLE, A-fib on Eliquis, HTN, reported history of CHF ? Followed by Dr. 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 Moreira, chronic back pain, chronic cervical pain who presented to the ER due to altered mental status. Patient takes Xtampza for pain, reported she took an extra dose yesterday as the pain in her back and neck was getting worse. Patient's son found her to be confused and brought her to the emergency room. Acute encephalopathy likely secondary to medication use, slowly improving. Concern for UTI initially based on urinalysis, likely contaminated sample. Antibiotics were later discontinued. #Neck pain?the patient was also complaining of pain in her neck and stiffness, she has chronic pain neck possibly due to cervical spondylosis/osteoarthritis. Resume patient's home medications including Flexeril, symptoms improved, is able to move her neck without discomfort, will recommend MRI on outpatient basis and following up with primary care physician. #A-fib RVR?rate controlled on p.o. amiodarone 200 mg twice daily, continue Eliquis, consulted spike machine operator Dr. Bianchi, appreciate recs. Echocardiogram shows mild LVH, EF 50 to 55%, normal LV size and function, normal LV cavity size and function, aortic sclerosis, mild MR and TR. #Acute encephalopathy?now resolved, likely toxic in the setting of medication overdose, now resolving, A&O x 3, GCS 15 of 15. At the time of discharge, patient back to her baseline mental status #History of diabetes mellitus?concern for recurrent hypoglycemic episodes, reported taking 4 units of insulin at home, will continue hypoglycemic medications. #Starvation ketosis?DKA ruled out, positive BHB, labs improved after IV D5 fluids. Slowly acute encephalopathy resolved and patient back to baseline mental status and taking p.o. diet. Quresh PGY3 Subjective Subjective Interval history: No acute overnight events. Patient seen examined at bedside. Patient reports neck pain better with increased range of movement without pain. No new complaints. Labs and vitals reviewed. SBP 110-130. Telemetry reviewed, sinus rhythm rate 70 to 80s. Hemoglobin stable 9.3, platelets 551. Continue amiodarone and metoprolol. Pending SNF placement Exam Vital Signs Temp Pulse Resp BP Pulse Ox O2 Del Method O2 Flow Rate 97.0 F 73 18 131/90 H 95 Room Air 6 06/08/25 12:00 06/08/25 12:00 06/08/25 12:00 06/08/25 12:00 06/08/25 12:00 06/08/25 12:00 06/03/25 09:37 Narrative Exam GENERAL: AOx3, no acute distress, sitting up comfortably HEENT: mucous membranes moist, bilateral sclera anicteric, cervical paraspinal muscles non tender CARDIOVASCULAR: regular rhythm and rate, S1/S2 present, no murmurs appreciated PULMONARY: clear to auscultation bilaterally, no rales/rhonchi/wheezes ABDOMINAL: soft, non-tender, non-distended, no rebound/guarding, bowel sounds present EXTREMITIES: no peripheral edema SKIN: warm and dry, intact, no rashes NEURO: CN II-XII grossly intact, no focal deficits, alert, following commands Objective Labs 06/08/25 04:37 06/08/25 04:37 Labs: Laboratory Results - last 24 hr 06/08/25 04:37 WBC 7.4 RBC 3.53 L Hgb 9.3 L Hct 29.7 L MCV 84 MCH 26.3 MCHC 31.3 RDW Std Deviation 56.8 H Plt Count 551 H D Neut % (Auto) 65 Lymph % (Auto) 19 [place] % (Auto) 10 Eos % (Auto) 4 Baso % (Auto) 1 Neut # (Auto) 4.8 Lymph # (Auto) 1.4 [place] # (Auto) 0.8 Eos # (Auto) 0.3 Baso # (Auto) 0.0 Immature Gran # (Auto) 0.06 H Absolute Nucleated RBC 0.00 Immature Gran % 1 H Nucleated RBC % 0 Sodium 137 Potassium 4.2 Chloride 98 Carbon Dioxide 24.0 Anion Gap 15 BUN 16 Creatinine 0.7 Estim Creat Clear Calc 79.0 eGFR > 60 BUN/Creatinine Ratio 23 H Glucose 129 H Calculated Osmolality 277 Calcium 9.2 Corrected Calcium 9.2 Magnesium 2.0 Total Bilirubin 0.2 L AST 15 ALT 11 Alkaline Phosphatase 74 Total Protein 6.5 Albumin 4.3 Globulin 2.2 L Albumin/Globulin Ratio 2.0 ABG Interpretation ABG results: 06/03/25 09:38 ABG pH 7.37 ABG pCO2 41 ABG pO2 90 ABG HCO3 24 ABG O2 Saturation 97 ABG Base Excess -2 Quality Measures Quality Measures VTE prophylaxis Advance care planning discussed with:: patient Assessment & Plan Assessment Current Active Medications: Generic Name Dose Route Start Last Admin Trade Name Freq PRN Reason Stop Dose Admin Acetaminophen 650 mg 06/03/25 13:54 06/06/25 02:45 Acetaminophen 325 Mg Tablet PO 07/03/25 13:53 650 mg Q6H PRN Administration Fever >101.5 Acetaminophen 650 mg 06/03/25 13:54 Acetaminophen Supp 650 Mg Supp CA 07/03/25 13:53 Q6HR PRN Fever > 100.4 or pain 1-3 Albuterol/Ipratropium 3 ml 06/03/25 14:55 Albuterol/Ipratropium (Duoneb) Rt Deisy 3 Ml Nebu INH 07/03/25 14:54 Q2HR PRN SHORTNESS OF BREATH OR WHEEZE Amiodarone HCl 200 mg 06/04/25 21:00 06/08/25 09:23 Amiodarone Hcl 200 Mg Tablet PO 07/04/25 20:59 200 mg BID THANH Administration Apixaban 5 mg 06/03/25 21:00 06/08/25 09:22 Apixaban 2.5 Mg Tablet PO 07/03/25 20:59 5 mg BID THANH Administration Buspirone HCl 15 mg 06/04/25 09:00 06/08/25 09:22 Buspirone Hcl 5 Mg Tablet PO 07/04/25 08:59 15 mg QDAY THANH Administration (Oxycodone Myristate 0 ea 06/04/25 08:00 06/08/25 09:35 [Xtampza Er] 18 Mg PO 07/04/25 07:59 1 capsule Cap,Sprinkle BIDWM THANH Administration Cyclobenzaprine HCl 10 mg 06/03/25 15:00 06/08/25 09:22 Cyclobenzaprine 5 Mg Tablet PO 07/03/25 14:59 10 mg QDAY THANH Administration Dextrose 25 ml 06/03/25 14:53 Dextrose 50%-Water Inj 50 Ml Syringe IV 07/03/25 14:52 Q15MIN PRN BG 50-70 responsive npo pt Dextrose 50 ml 06/03/25 14:53 Dextrose 50%-Water Inj 50 Ml Syringe IV 07/03/25 14:52 Q15MIN PRN BG <50 OR BG <70 & pt unresponsive Fluoxetine HCl 10 mg 06/04/25 09:00 06/08/25 09:23 Fluoxetine Hcl 10 Mg Capsule PO 07/04/25 08:59 10 mg QDAY THANH Administration Glucagon 1 mg 06/03/25 14:53 Glucagon Inj 1 Mg Vial IM Q15MIN PRN BG <70, and no IV access Hydroxychloroquine Sulfate 200 mg 06/03/25 21:00 06/08/25 09:23 Hydroxychloroquine 200 Mg Tablet PO 06/10/25 20:59 200 mg BID THANH Administration Insulin Human Lispro 0 unit 06/03/25 17:00 06/08/25 12:19 Insulin Lispro (Admelog) 1 Unit/0.01 Ml Unit SC 07/03/25 16:59 Not Given AC THANH Protocol Levothyroxine Sodium 100 mcg 06/04/25 06:00 06/08/25 05:17 Levothyroxine Sodium 100 Mcg Tablet PO 07/04/25 05:59 100 mcg ACBR THANH Administration Metoprolol Succinate 50 mg 06/04/25 09:00 06/08/25 09:21 Metoprolol Succinate Xl 25 Mg Tabcr PO 07/04/25 08:59 50 mg QDAY THANH Administration Sennosides 1 tab 06/03/25 13:54 06/05/25 05:29 Senna Tablet PO 07/03/25 13:53 1 tab QDAY PRN Administration constipation Protocol Zolpidem Tartrate 5 mg 06/05/25 17:45 06/07/25 20:38 Zolpidem 5 Mg Tablet PO 07/05/25 17:44 5 mg HS PRN Administration INSOMNIA Plan Bhavna Ryder 74F pmhx significant for NIDDM2, HTN, atrial fibrillation, mitral valve prolapse, breast CA s/p excision and radiation and SLE who presents with one week of gradual weakness and confusion, admitted for management of afib RVR and encephalopathy secondary to starvation ketosis. #Acute Encephalopathy- resolved #Starvation ketosis- resolved Presents with one week of worsening confusion and generalized weakness. Endorses poor PO intake and recent episodes of hypoglycemia. Last BM 1 week ago. AOx3 in ED. WBC 12.5 and anion gap 19. Electrolytes wnl. BHB 4.7. Initially thought to have UTI, however, UCx negative and possible contamination. Ddx: metabolic (HAGMA, elevated lactic vs beta hydroxy as patient has hx of DKA) vs infectios (UTI) vs polypharmacy (taking extra Xtampza due to exacerbation of back pain and neck pain, zolpidem) vs hypoglycemia Ceftriaxone (06/03-06/05) Plan: - PT ordered: recommend SNF, pending placement #Atrial fibrillation RVR, resolved #Hx atrial fibrillation on Eliquis #HFpEF (50-55%) Presented with atrial fibrillation RVR with hx of afib already on Eliquis and metoprolol XL 50 QD, unknown chronicity or paroxysmal vs chronic. EKG shows SVT rate 152 QTc 474. Questionable hx of CHF but patient reports taking lasix for CHF. Previously saw Dr. Bianchi. s/p IV dilt x1 in ED without conversion. 06/03 TTE mild LVH with normal LV size and function, EF 50 to 55%. Normal RV size and function, AV sclerosis without stenosis, mild MR and mild TR Likely 2/2 underlying cause of encephalopathy. Plan: - PO amiodarone, 200 mg twice daily - Continue home metoprolol XL 50 mg QD - Telemetry for monitoring - Keep K>4 and Mg>2 at all times - Cardiology consulted, recs appreciated #IDDM2 Previously on Lantus 30u, however over the past few months, has had hypoglycemic episodes and has not been taking insulin. Still taking metformin. A1c 6.0. Trig 70, cholesterol 117, LDL 50, HDL 53. Plan: - SSI #Chronic back pain #Neck pain, improved New muscular neck pain for the past week and exacerbation of chronic back pain. Xtampza ER 13.5 BID for years and cyclobenzaprine 10 mg QD. Denies light sensitivity or neck rigidity. Does have muscular pain when turning head and TTP to cervical paraspinal muscles.ke Plan: - Continue home Xtampza ER 13.5 mg BID and cyclobenzaprine 10 mg BID - Plan to reduce cyclobenzaprine to prn on discharge #SLE #Depression #Hypothyroidism #Asthma Does not appear to be in SLE flare, denies myalgias, joint pain, excessive fatigue. Chronic medical conditions nonpertinent to the following presentation Plan: - Continue home hydroxychloroquine 200 mg BID, levothyroxine 100 mcg acbr - Duoneb q2h prn Hospital management: Lines: PIV Diet: carb consistent low Bowel: Senna GI prophylaxis: not indicated DVT prophylaxis: Eliquis 5 mg BID Disposition: tele, pending SNF CODE STATUS: FULL CODE Plan of care discussed with attending Dr. Driver and PGY-3 Dr. Richardson. Fara Ruvalcaba DO Internal Medicine PGY-1 Attending Provider Attestation/Addendum I, Gianna Driver DO, attest that I was physically present for the kelly portions of the service and evaluated the patient with the resident and I reviewed and discussed the case with the resident and agree with the resident's findings and plans of care as documented above Patient seen and evaluated this AM. No acute events overnight. Patient appears to be more comfortable and has slight improvment of range of motion of her neck. Pending authorization of SNF at this time.
--- NOTE | 2025-06-08 20:08 | PC.NURSE ---
Report received, pt has no current complaints call light within reach.
[2025-06-08] MEDS: ZOLPIDEM 5 MG TABLET PO (20:33)
[2025-06-08] MEDS: ACETAMINOPHEN 325 MG TABLET 650 MG PO (20:48)
[2025-06-09] VITALS: BP 124/71; PULSE 72; RESP 17; TEMP 36.6; O2SAT 94
[2025-06-09 04:00] VITALS: BP 137/82; PULSE 80; RESP 18; TEMP 37.2; O2SAT 95
[2025-06-09 06:00] VITALS: BMI 27.6
[2025-06-09] MEDS: LEVOTHYROXINE SODIUM 100 MCG TABLET PO (06:07)
[2025-06-09 08:00] VITALS: BP 139/76; PULSE 78; RESP 16; TEMP 37.1; O2SAT 95
[2025-06-09] MEDS: INSULIN LISPRO (AdmeLOG) 1 UNIT/0.01 ML UNIT SC (08:18)
[2025-06-09] MEDS: OXYCODONE MYRISTATE 18 MG PO (08:19)
[2025-06-09 08:20] VITALS: BP 139/76; PULSE 72; PULSE 78
[2025-06-09] MEDS: METOPROLOL SUCCINATE XL 25 MG TABCR 50 MG PO (08:20)
[2025-06-09] MEDS: APIXABAN 2.5 MG TABLET 5 MG PO (08:20)
[2025-06-09] MEDS: AMIODARONE HCL 200 MG TABLET PO (08:20)
[2025-06-09] MEDS: HYDROXYCHLOROQUINE 200 MG TABLET PO (08:21)
[2025-06-09 12:00] VITALS: BP 133/73; PULSE 69; RESP 17; TEMP 37.2; O2SAT 93
--- NOTE | 2025-06-09 13:06 | ESDS_ITS ---
<Statement entered by Gianna Driver DO - 06/09/25 16:48> I, Gianna rDiver DO, attest that I was physically present for the kelly portions of the service and evaluated the patient with the resident and I reviewed and discussed the case with the resident and agree with the resident's findings and plans of care as documented above Planned Discharge Date 06/09/25 DS: Providers Provider Date of admission: 06/03/25 13:53 Primary care physician: Kady Puga MD Admitting Provider: Gianna Driver DO Attending Provider on Admission: Gianna Driver DO Consults: 06/03/25 14:07 Consult to Cardiology Routine Comment: Consulting Provider: Oral Bianchi 06/05/25 10:22 Referral Physical Therapy Routine Comment: Physician Instructions: Attending Provider on DC: Fara Ruvalcaba DO Discharging Provider: Fara Ruvalcaba DO DS: Diagnosis Problem List Completed Was Problem List Reviewed/Reconciled?: Yes Hospital Course Hospital Course Hospital course: Summary: Bhavna Ryder 74F pmhx significant for NIDDM2, HTN, atrial fibrillation, mitral valve prolapse, breast CA s/p excision and radiation and SLE who presents with one week of gradual weakness and confusion, admitted for management of afib RVR and encephalopathy secondary to starvation ketosis. Patient presents with one week of worsening confusion and generalized weakness. Endorses poor PO intake and recent episodes of hypoglycemia, now off insulin. Last BM 1 week prior to admission. In ED patient AOx3, WBC 12.5 and anion gap 19, electrolytes wnl, BHB 4.7, diagnosed with starvation ketosis due to poor intake from exacerbation of chronic pain. On admission, patient was also found to be in atrial fibrillation RVR, controlled with amiodarone. Initially thought to have UTI as UA indicated infection and treated with 3 days of abx, however, UCx negative and likely contamination. Patient's pain was controlled with medication, and encephalopathy resolved. On discharge, patient is hemodynamically stable, vitals and labs reviewed and patient is ready to be discharged to SNF. Imaging: Head CT negative for acute hemorrhage, mass effect or midline shift CXR basilar bronchitis pattern 06/03 TTE mild LVH with normal LV size and function, EF 50 to 55%. Normal RV size and function, AV sclerosis without stenosis, mild MR and mild TR Discharge Recommendations: - Please take all medications as prescribed - START amiodarone 200 mg twice daily for atrial fibrillation - Take cyclobenzaprine as needed for pain - Suggest outpatient MRI if cervical pain worsens - Continue all home medications except as above - Please follow up with your PCP within one week of discharge - Please follow up with your cardiology within one week of discharge - If your symptoms worsen, please seek immediate medical attention and return to your nearest emergency room. - If you do not have a PCP, you may follow up at the [facility] at [address] [place] [address] [address] [id number], Hospital Diagnoses: #Acute Encephalopathy- resolved #Starvation ketosis- resolved #Atrial fibrillation RVR, resolved #Hx atrial fibrillation on Eliquis #HFpEF (50-55%) #IDDM2 #Chronic back pain #Chronic neck pain, improved #SLE #Depression #Hypothyroidism #Asthma Plan of care discussed with attending Dr. Driver, and PGY-3 Dr. Richardson. Fara Ruvalcaba, DO Internal Medicine, PGY-1 Time Spent with Patient Time attestation: Total time spent providing and/or coordinating discharge services: Time spent: Greater than 30 minutes Exam Vital Signs Temp Pulse Resp BP Pulse Ox O2 Del Method O2 Flow Rate 98.7 F 72 16 139/76 H 95 Room Air 6 06/09/25 08:00 06/09/25 08:20 06/09/25 08:00 06/09/25 08:20 06/09/25 08:00 06/09/25 08:00 06/03/25 09:37 Narrative Exam GENERAL: AOx3, no acute distress, sitting up comfortably HEENT: mucous membranes moist, bilateral sclera anicteric, cervical paraspinal muscles non tender CARDIOVASCULAR: regular rhythm and rate, S1/S2 present, no murmurs appreciated PULMONARY: clear to auscultation bilaterally, no rales/rhonchi/wheezes ABDOMINAL: soft, non-tender, non-distended, no rebound/guarding, bowel sounds present EXTREMITIES: no peripheral edema SKIN: warm and dry, intact, no rashes NEURO: CN II-XII grossly intact, no focal deficits, alert, following commands Discharge Plan Plan Patient Disposition: Xfer Skilled Nsg Fac (SNF) Disposition Comment: [facility] Patient condition on transfer: Stable Care Plan Goals: Please follow-up with primary care physician within 3 days upon discharge Please follow-up with your gastrointestinal technician within 7 days upon discharge Would recommend outpatient MRI if cervical pain worsens. F/u with your pcp You have been started on amiodarone 200 mg twice daily Please continue all the home medications as prescribed Please come back to the ER if symptoms persist or worsen Prescriptions/Referrals Prescriptions/Med Rec: New amiodarone [Pacerone] 200 mg Tablet 200 mg PO BID 30 Days Qty: 60 0RF Continued gabapentin 300 mg capsule 300 mg PO BID metformin 1,000 mg tablet 1,000 mg PO BID hydroxychloroquine 200 mg tablet 200 mg PO BID zolpidem 10 mg tablet 10 mg PO QDAY PRN (Reason: Insomnia) Patient Comments: TAKE 1 TABLET BY MOUTH EVERY DAY AT BEDTIME NEEDED buspirone 15 mg tablet 15 mg PO QDAY Eliquis 5 mg tablet 5 mg PO BID Patient Comments: TAKE 1 TABLET BY MOUTH TWICE DAILY Xtampza ER 13.5 mg cap,sprinkl,ER12hr(DONT CRUSH) 13.5 mg PO BIDWM levothyroxine 100 mcg Tablet 100 mcg PO ACBR Qty: 30 0RF metoprolol succinate 25 mg Tablet Extended Release 24 Hr 50 mg PO QDAY Qty: 60 0RF insulin glargine [Lantus Solostar U-100 Insulin] 100 unit/mL (3 mL) insulin pen 10 unit subcut QDAY Changed cyclobenzaprine 10 mg tablet 10 mg PO BID PRN (Reason: spasticity) Qty: 10 0RF Patient Comments: TAKE 1 TABLET BY MOUTH THREE TIMES DAILY Referrals: Oral Bianchi MD [Physician, Cardiology] Kady Puga MD [Primary Care Provider] Patient/Caregiver Discharge Instructions Other Discharge Activity Instructions:: Please follow-up with primary care physician within 3 days upon discharge Please follow-up with your gastrointestinal technician within 7 days upon discharge Would recommend outpatient MRI due to cervical pain if worsens and PCP to order. You have been started on amiodarone 200 mg twice daily Please continue all the home medications as prescribed Please come back to the ER if symptoms persist or worsen Education Materials: AFL/Afib Print Language: Thai Stand Alone Forms: Josee Award Info., Patient Portal Info Letter Discharge Order Discharge Orders: Discharge (Routine); Ordered 06/09/25 Ordered By: Chris Hebert Quality Discharge Quality Measures VTE prophylaxis
--- NOTE | 2025-06-09 13:30 | PC.SS ---
follow up note: Patient has authorization for today. [facility] will provide medivan transport. SS attempted [facility] and their team states patient lost transportation benefits. 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
[2025-06-09 13:54] VITALS: BMI 13.0
--- NOTE | 2025-06-09 15:42 | PC.NURSE ---
6th attempt to contact receiving nurse at [facility]. Admission coordinator ok with transferring pt if needed and receiving nurse will call back to get report. My direct Extension left with [facility] admission coordinator.
[2025-06-09 16:00] VITALS: BP 133/73; PULSE 69; RESP 17; TEMP 37.2; O2SAT 93
--- NOTE | 2025-06-09 16:24 | PC.NURSE ---
Discharge info given to receiving nurse at Mehdi Curry RN.
[2025-06-13 06:59] LABS: Vitamin B1 (Thiamine)* 8 nmol/L (8-30)
== END 2025-06-09 17:24 | disposition skilled nursing facility (03) | DRG 71 ==
LOC: SERX 08:09 → SERHOLD 15:02 → S2NX 18:40 → S3NX 06-08 10:50
PROVIDERS: Student in an Organized Health Care Education/Training Program; Admitting Provider Internal Medicine; Emergency Provider Family Medicine; PCP Internal Medicine; Visit Provider Internal Medicine
DX: G93.40 Encephalopathy, unspecified (principal); E87.29 Other acidosis; I50.32 Chronic diastolic (congestive) heart failure; I47.10 Supraventricular tachycardia, unspecified; H70.002 Acute mastoiditis without complications, left ear; G89.29 Other chronic pain; M54.50 Low back pain, unspecified; M32.9 Systemic lupus erythematosus, unspecified; I48.0 Paroxysmal atrial fibrillation; I11.0 Hypertensive heart disease with heart failure; E11.9 Type 2 diabetes mellitus without complications; K59.00 Constipation, unspecified; F32.A Depression, unspecified; J44.89 Other specified chronic obstructive pulmonary disease; E03.9 Hypothyroidism, unspecified; I34.1 Nonrheumatic mitral (valve) prolapse; Z85.3 Personal history of malignant neoplasm of breast; Z90.49 Acquired absence of other specified parts of digestive tract; R09.02 Hypoxemia; T73.0XXA Starvation, initial encounter; Z79.01 Long term (current) use of anticoagulants; Z79.4 Long term (current) use of insulin; Z79.84 Long term (current) use of oral hypoglycemic drugs; M54.2 Cervicalgia; Z79.899 Other long term (current) drug therapy; Z88.2 Allergy status to sulfonamides; Z88.8 Allergy status to other drugs, medicaments and biological substances
CPT/HCPCS: 36415; 36600; 70450; 71045; 80053; 80061; 80069; 80307; 80320; 80329; 81001; 82010; 82607; 82803; 83036; 83605; 83735; 83880; 84100; 84425; 84439; 84443; 84484; 85025; 85610; 87040; 87086; 93005; 93306; 96361; 96365; 96366; 97162; 99285; J0283; J0696; J1815; J3411; J3475; J3490; J7030; J7042; J7050; A9270; G0480